=== PATIENT | male | born 1945 | race Caucasian/White ===

== ENCOUNTER 2016-11-05 16:10 | Observation (INO) | payer BC, OTHER ==
[~2016-11-05] VITALS: Ht 185.4 cm; Wt 121.8 kg
[2016-11-05] MEDS ORDERED: ASPIRIN 81 MG CHEW TABLET As Ordered ONE (16:27)
[2016-11-05 16:48] LABS: BASO # 0.2 K/mm3 (0.0-0.2); BASO % 2.6 % (0.0-1.0); EOS # 0.1 K/mm3 (0.0-0.50); EOS % 1.3 % (0.0-3.0); LARGE UNSTAINED CELL # 0.2 K/mm3 (0.0-0.4); LYMPH % 10.8 % (24.0-44.0); MEAN CORPUSCULAR HGB CONC 34.3 g/dl (32.0-36.5); MEAN CORPUSCULAR VOLUME 81.7 fl (80.0-96.0); MONO # 0.6 K/mm3 (0.0-0.8); MONO % 8.4 % (0.0-5.0); NEUTROPHILS # 5.2 K/mm3 (1.8-7.7); NEUTROPHILS % 73.9 % (36.0-66.0); PLATELET COUNT, AUTOMATED 203 k/mm3 (150-450); RED CELL DISTRIBUTION WIDTH 14.4 % (11.5-14.5)
[2016-11-05 17:15] LABS: ANION GAP 10 MEQ/L (8-16); BLOOD UREA NITROGEN 17 MG/DL (7-18); CALCIUM LEVEL 8.9 MG/DL (8.8-10.2); CARBON DIOXIDE LEVEL 26 MEQ/L (21-32); CHLORIDE LEVEL 106 MEQ/L (98-107); CREATININE FOR GFR 0.86 MG/DL (0.70-1.30); GLOMERULAR FILTRATION RATE > 60.0 (>42); GLUCOSE, FASTING 112 MG/DL (83-110); POTASSIUM SERUM 3.6 MEQ/L (3.5-5.1); SODIUM LEVEL 142 MEQ/L (136-145)
[2016-11-05] MEDS ORDERED: TYLE650T35 PO (17:57)
[2016-11-05] MEDS ORDERED: VITA100066 PO (17:57)
[2016-11-05] MEDS ORDERED: GLUCTAB4 PO (17:57)
[2016-11-05] MEDS ORDERED: HYDR25TAB PO (17:57)
[2016-11-05] MEDS ORDERED: ATOR1TAB19 PO (17:57)
[2016-11-05] MEDS ORDERED: DIGO0.25 PO (17:57)
[2016-11-05] MEDS ORDERED: VITA500T88 PO (17:57)
[2016-11-05] MEDS ORDERED: ELIQ5TAB PO (17:57)
[2016-11-05] MEDS ORDERED: LISI30TA4 PO (17:57)
[2016-11-05] MEDS ORDERED: NEXI40CA PO (17:57)
[2016-11-05] MEDS ORDERED: FISH1000 PO (17:57)
[2016-11-05] MEDS ORDERED: VITMTA PO (17:57)
--- NOTE | 2016-11-05 18:13 | REP ---
PA and lateral chest 11/05/2016 Indication: Chest pain Comparison: PA chest with left rib series 12/09/2012, PA and lateral chest 11/25/2011. Findings: The cardiac silhouette is of normal size. There is tortuosity and ectasia / mild aneurysmal dilatation in the descending thoracic aorta, not significantly changed. Fibro atelectatic changes are present in lung bases, right greater than left. Blunting within the right costophrenic angle suggests minimal pleural effusion and/or atelectasis/ scarring changes. Bones and soft tissues are within normal limits. Impression: tortuosity and ectasia / mild aneurysmal dilatation of the ascending thoracic aorta is noted. Cardiac silhouette is of normal size Bibasilar fibro atelectatic changes Blunting in the right costophrenic angle may represent minimal pleural effusion or atelectasis/ scarring Signed by Linda Weems MD 11/05/2016 06:05 P
[2016-11-05] MEDS ORDERED: ACETAMINOPHEN 325 MG TAB As Ordered ONE (18:32)
[2016-11-05] MEDS ORDERED: ISOVUE-370 76% 100ML VIAL (Q9967) As Ordered ONE (18:58)
--- NOTE | 2016-11-05 19:50 | REPUSA ---
CLINICAL HISTORY: Dyspnea, exclude PE. TECHNIQUE: Multiple incremental axial, coronal and oblique images are obtained from the thoracic inle t to the upper abdomen. Intravenous contrast material was administered as per pulmonary embolism prot ocol. COMMENTS: There is excellent opacification of pulmonary arterial system without evidence for pulmonary embolism . Aorta is of normal caliber without evidence for dissection or aneurysm. There is no evidence of pleural or parenchymal mass. There are no pleural effusions. Calcified bilat eral hilar and mediastinal lymph nodes are present compatible with prior granulomatous disease. There is no evidence of hilar or mediastinal lymphadenopathy. The heart is enlarged. There is pulmon concepción venous congestive changes present. Several hepatic cysts are present. Liver is otherwise unremarkable. The bony structures are free of lytic or blastic lesions. Multilevel degenerative changes are seen in volving the visualized thoracolumbar spine. Scattered calcifications are seen involving the aorta and major branches compatible with atherosclero sis. IMPRESSION: No evidence for pulmonary embolism. Calcified bilateral hilar and mediastinal lymph nodes are present compatible with prior granulomatous disease. The heart is enlarged. There is pulmonary venous congestive changes present. Several hepatic cysts are present. Thank you for your kind referral of this patient. We appreciate the opportunity to participate in thi s patient's care.
[2016-11-05] MEDS ORDERED: PERCOCET 5MG/325MG TAB PO PRN (20:30)
[2016-11-05] MEDS ORDERED: DIGOXIN 0.25 MG TAB PO SCH (21:00)
[2016-11-05] MEDS ORDERED: ATORVASTATIN 10 MG TAB PO SCH (21:00)
[2016-11-05] MEDS ORDERED: LISINOPRIL 10 MG TAB PO SCH (21:00)
[2016-11-05] MEDS ORDERED: PANTOPRAZOLE 40MG TAB (PROTONIX) PO SCH (21:00)
[2016-11-05] MEDS ORDERED: PERCOCET 5MG/325MG TAB As Ordered ONE (21:35)
--- NOTE | 2016-11-05 23:04 | EDDOCDS ---
Nurse's Notes [facility] Name: Neel Varner Age: 71 yrs Sex: Male : 1945 Arrival Date: 11/05/2016 Time: 16:10 Bed OBSERVATION Private MD: Guido Diagnosis: Chest pain, unspecified Presentation: 11/05 16:16 Presenting complaint: Patient states: mid chest pain x2 hours. Constant. Some SOB. No ttb n/v. Pt sitting at desk when pain started. Aspirin was not taken prior to arrival. Adult Sepsis Screening: The patient does not have new or worsening altered mentation. Patient's respiratory rate is less than 22. Systolic blood pressure is greater than 100. Patient has a qSOFA score of 0- Negative Sepsis Screen. Suicide/Homicide risk assessment- the patient denies having any suicidal and/or homicidal ideations and does not present with any other emotional, behavioral or mental health complaints. Status: Patient is not a sales and service advisor or dependent. Transition of care: patient was not received from another setting of care. 16:16 Acuity: LISA Level 3 ttb 16:16 Method Of Arrival: Walkin/Carried/Asstd ttb 16:43 Acuity level changed due to complexity of care. ck1 16:43 Acuity: LISA Level 2 ck1 Triage Assessment: 16:16 General: Appears in no apparent distress, well nourished, well groomed, Behavior is ttb appropriate for age, cooperative, pleasant. Pain: Location: mid chest Pain currently is 6 out of 10 on a pain scale. Pain does not radiate. Quality of pain is described as pressure, sharp. Cardiovascular: Chest pain is described as Pain is 6 out of 10 on a pain scale. radiates Does not radiate. episodes are continuous began 2 hours prior to arrival. Respiratory: Airway is patent Respiratory effort is even, unlabored, Reports shortness of breath pain with respiration Denies cough, labored breathing. GI: Denies nausea, vomiting, pain. Derm: Skin is normal. Injury Description: fell yesterday while walking dog. Fell on "face". Historical: - Allergies: no known allergies; - Home Meds: 1. lisinopril 30 mg Oral tab 1 tab once daily (Last dose: 11/04/2016) 2. digoxin 0.25mg Oral soln once daily (Last dose: 11/04/2016) 3. Eliquis 5 mg oral tab 1 tab 2 times per day (Last dose: 11/05/2016 07:30) 4. hydrochlorothiazide 12.5 mg Oral cap 1 cap once daily (Last dose: 11/05/2016 07:00) 5. Nexium 40 mg Oral cpDR 1 cap once daily (Last dose: 11/04/2016) 6. atorvastatin 10 mg oral tab 1 tab once daily (Last dose: 11/04/2016) - PMHx: afib; Hypercholesterolemia; Hypertension; pericardial effusion; - PSHx: left knee arthroplasty; Prostatectomy; - Social history: Smoking status: Patient states was never smoker of tobacco. Patient/guardian denies using alcohol, street drugs, No barriers to communication noted, The patient speaks fluent Sudanese, Speaks appropriately for age. - Family history: Not pertinent. - : The pt / caregiver states he / she is on anticoagulants: Eliquis Home medication list is obtained from the patient. - Exposure Risk Screening:: None identified. Screenin:40 Screening information is obtained from the patient. Fall risk: No risks identified. ck1 Assistance ADL's: requires no assistance with activities of daily living. Abuse/DV Screen: The patient / caregiver reports he/she is: not in a situation that causes fear, pain or injury. Nutritional screening: No deficits noted. Advance Directives: Currently, there is a health care proxy, Kathie Varner (). home support is adequate. Assessment: 16:40 General: Appears in no apparent distress, comfortable, Behavior is appropriate for age, ck1 cooperative. Pain: Location: chest Pain currently is 6 out of 10 on a pain scale. Pain does not radiate. Cardiovascular: Rhythm is sinus rhythm. Respiratory: Respiratory effort is unlabored, Respiratory pattern is regular, symmetrical. GI: No deficits noted. Derm: Skin is intact, is healthy with good turgor, Skin is pink, warm & dry. Musculoskeletal: Circulation, motion, and sensation intact Range of motion intact in all extremities. 17:40 General: Appears in no apparent distress, comfortable, Behavior is appropriate for age, ck1 cooperative. Pain: Location: chest Pain currently is 6 out of 10 on a pain scale. Neurological: Level of Consciousness is awake, alert, obeys commands, Oriented to person, place, time. Cardiovascular: Rhythm is regular. Respiratory: No deficits noted. GI: No deficits noted. Derm: Skin is intact, is healthy with good turgor, Skin is pink, warm & dry. Musculoskeletal: Circulation, motion, and sensation intact Range of motion intact in all extremities. 18:37 General: Appears in no apparent distress, comfortable, Behavior is appropriate for age, ck1 cooperative, pleasant. Pain: Location: chest Pain currently is 6 out of 10 on a pain scale. Neurological: Level of Consciousness is awake, alert, obeys commands, Oriented to person, place, time. Cardiovascular: Rhythm is sinus rhythm. Respiratory: Respiratory effort is unlabored, Respiratory pattern is regular, symmetrical. Respiratory: Respiratory effort is unlabored, Respiratory pattern is regular, symmetrical. GI: No deficits noted. Derm: Skin is intact, is healthy with good turgor, Skin is pink, warm & dry. 19:23 Reassessment: Patient appears in no apparent distress at this time. Patient states jp6 symptoms have improved. General: Appears in no apparent distress, comfortable, well developed, Behavior is appropriate for age, cooperative. Pain: Location: chest Pain currently is 2 out of 10 on a pain scale. Pain does not radiate. Quality of pain is described as burning. Neurological: Level of Consciousness is awake, alert, Oriented to person, place, time. EENT: No deficits noted. Cardiovascular: Capillary refill < 3 seconds Heart tones S1 S2 present Rhythm is sinus rhythm No ectopy. Respiratory: No deficits noted. Airway is patent Respiratory effort is even, unlabored, Respiratory pattern is regular, symmetrical, Breath sounds are clear bilaterally. GI: No deficits noted. Abdomen is flat, Bowel sounds present X 4 quads. : No deficits noted. Derm: Skin is pink, warm & dry. Musculoskeletal: No deficits noted. 20:30 Reassessment: Patient appears in no apparent distress at this time. Patient states jp6 symptoms have improved. General: Appears in no apparent distress, comfortable, Behavior is appropriate for age, cooperative. Pain: Denies pain. Neurological: Level of Consciousness is awake. Cardiovascular: Capillary refill < 3 seconds Rhythm is sinus rhythm No ectopy. Respiratory: Airway is patent Respiratory effort is even, unlabored, Respiratory pattern is regular, symmetrical. Derm: Skin is pink, warm & dry. 21:43 Reassessment: Patient appears in no apparent distress at this time. c/o headache and jp6 left sided chest pain again-03/10 medicated w/ percocet 1 tab at 2130.. General: Appears in no apparent distress, uncomfortable, Behavior is appropriate for age, cooperative. Pain: Location: face and chest Pain currently is 5 out of 10 on a pain scale. Neurological: Level of Consciousness is awake, alert. Cardiovascular: Capillary refill < 3 seconds Rhythm is sinus rhythm No ectopy. Respiratory: Airway is patent Respiratory effort is even, unlabored, Respiratory pattern is regular, symmetrical. Derm: Skin is pink, warm & dry. 22:29 Reassessment: Patient appears in no apparent distress at this time. Patient states jp6 symptoms have improved. General: Appears in no apparent distress, comfortable, Behavior is appropriate for age, cooperative. Pain: Denies pain. Neurological: Level of Consciousness is awake, alert, Oriented to person, place, time. Cardiovascular: Capillary refill < 3 seconds Rhythm is sinus rhythm No ectopy. Respiratory: No deficits noted. Airway is patent Respiratory effort is even, unlabored, Respiratory pattern is regular, symmetrical. : : Derm: Skin is pink, warm & dry. Vital Signs: 16:14 BP 162 / 72; Pulse 75; Resp 18; Temp 97.9(O); Pulse Ox 98% on R/A; Weight 120.2 kg; dem1 Height 6 ft. 1 in. (185.42 cm); Pain /; 16:30 BP 145 / 76 (auto/); ck1 16:30 Pulse 72 MON; Pulse Ox 97% ; ck1 16:31 Pulse 74 MON; Pulse Ox 97% ; ck1 17:00 BP 151 / 78 (auto/); ck1 17:00 Pulse 70 MON; Pulse Ox 97% ; ck1 17:30 BP 138 / 65 (auto/); ck1 17:30 Pulse 64 MON; Pulse Ox 96% ; ck1 17:59 Pulse 66 MON; Pulse Ox 96% ; ck1 18:00 BP 143 / 70 (auto/); ck1 18:27 BP 149 / 70 (auto/); ck1 18:28 Pulse 66 MON; Pulse Ox 98% ; ck1 19:19 BP 148 / 70 (auto/); jp6 19:20 Pulse 64 MON; Pulse Ox 96% ; jp6 20:19 BP 142 / 64 (auto/); jp6 20:20 Pulse 70 MON; Pulse Ox 96% ; jp6 20:49 BP 146 / 79 (auto/); jp6 20:49 Pulse 72 MON; Pulse Ox 94% ; jp6 21:19 BP 140 / 65 (auto/); jp6 21:20 Pulse 72 MON; Pulse Ox 94% ; jp6 21:53 Temp 99.4(O); tk 22:19 BP 134 / 70 (auto/); jp6 22:20 Pulse 66 MON; Pulse Ox 96% ; jp6 16:14 Body Mass Index 34.96 (120.20 kg, 185.42 cm) [facility] Vitals: 16:14 Log In Time: November 05, 2016 at 16:08. RN notified that patient meets Red Flag [facility]1 criteria. ED Course: 16:14 Patient visited by Celia Olmos. dem1 16:14 Guido is Private Physician. dem1 16:14 Patient moved to Waiting dem1 16:17 Triage Initiated ttb 16:19 Patient visited by Teresa Armenta RN. ttb 16:19 May Goldman,LUCA is Primary Nurse. ttb 16:19 Mel Smart MD is Attending Physician. fg 16:19 Patient moved to 5 ttb 16:31 Patient visited by Yeni Corral PCA. jlf 16:31 gambling monitor on. Pulse ox on. NIBP on. jlf 16:31 EKG done. (by ED staff). Reviewed by Mel Smart MD. jlf 16:40 B-Type Natiuretic Peptide Sent. ck1 16:40 Basic Metabolic Profile Sent. ck1 16:40 CBC with Diff Sent. ck1 16:40 Cardiac Injury Profile Sent. ck1 16:40 Troponin Sent. ck1 16:40 Inserted saline lock: 18 gauge in right forearm and blood collected. The patient ck1 tolerated the procedure well. 16:41 The patient / caregiver is instructed regarding the plan of care and ED course. ck1 16:50 Patient visited by Teresa Armenta RN. ttb 17:20 Patient visited by Mel Smart MD. fg 17:43 Patient visited by May Goldman,LUCA. ck1 17:51 Patient visited by May Goldman,LUCA. ck1 17:51 No procedures done that require assistance. ck1 18:16 [facility] Payment Agreement was scanned into [employer] and attached to record. gjb 18:36 Patient visited by May Goldman,LUCA. ck1 18:52 Patient visited by May Goldman,LUCA. ck1 18:57 Attending Physician role handed off by Mel Smart MD cs11 18:57 Aníbal Kemp DO is Attending Physician. cs11 19:05 Chest, 2 View (pa\\E\\lat) Returned. EDMS 19:[address] angio and ret'. jp6 19:57 Norma Matta display director. ys2 19:59 Patient visited by Jil El,LUCA. jp6 20:01 CT Chest Angio R/O PE Returned. EDMS 20:06 Patient moved to OBSERVATION cs11 21:01 Norma Matta is Hospitalizing Provider. cs11 21:53 Patient visited by Pierre Badillo. tk 22:55 Primary Nurse role handed off by May Goldman RN ck1 23:03 Jil El RN is Primary Nurse. jp6 Administered Medications: 16:40 Drug: Aspirin 324 mg [aspirin 81 mg chewable tablet (4 tabs)] Route: PO; ck1 18:36 Drug: Acetaminophen 650 mg [acetaminophen 325 mg tablet (2 tabs)] Route: PO; ck1 21:30 Drug: oxyCODONE-acetaminophen 1 tabs [oxycodone-acetaminophen 5 mg-325 mg tablet (1 jp6 tabs)] Route: PO; Order Results: Lab Order: B-Type Natiuretic Peptide; SPEC'M 11/05/16 16:37 Test: BRAIN NATRIURETIC PEPTIDE; Value: 20.1; Range: <100; Units: PG/ML; Status: F Lab Order: Basic Metabolic Profile; SPEC'M 11/05/16 16:37 Test: GLUCOSE, FASTING; Value: 112; Range: 83-110; Abnormal: Above high normal; Units: MG/DL; Status: F Test: BLOOD UREA NITROGEN; Value: 17; Range: 7-18; Units: MG/DL; Status: F Test: CREATININE FOR GFR; Value: 0.86; Range: 0.70-1.30; Units: MG/DL; Status: F Test: GLOMERULAR FILTRATION RATE; Value: > 60.0; Range: >42; Status: F Test: SODIUM LEVEL; Value: 142; Range: 136-145; Units: MEQ/L; Status: F Test: POTASSIUM SERUM; Value: 3.6; Range: 3.5-5.1; Units: MEQ/L; Status: F Test: CHLORIDE LEVEL; Value: 106; Range: 98-107; Units: MEQ/L; Status: F Test: CARBON DIOXIDE LEVEL; Value: 26; Range: 21-32; Units: MEQ/L; Status: F Test: ANION GAP; Value: 10; Range: 8-16; Units: MEQ/L; Status: F Test: CALCIUM LEVEL; Value: 8.9; Range: 8.8-10.2; Units: MG/DL; Status: F Test Note: ; Units are mL/min/1.73 m2 Chronic Kidney Disease Staging per NKF: Stage I & II GFR >=60 Normal to Mildly Decreased Stage III GFR 30-59 Moderately Decreased Stage IV GFR 15-29 Severely Decreased Stage V GFR <15 Very Little GFR Left ESRD GFR <15 on PRODUCTION PLANNING MANAGER Lab Order: CBC with Diff; SPEC'M 11/05/16 16:37 Test: WHITE BLOOD COUNT; Value: 7.0; Range: 4.0-10.0; Units: K/mm3; Status: F Test: RED BLOOD COUNT; Value: 4.79; Range: 4.30-6.10; Units: M/mm3; Status: F Test: HEMOGLOBIN; Value: 13.4; Range: 14.0-18.0; Abnormal: Below low normal; Units: g/dl; Status: F Test: HEMATOCRIT; Value: 39.1; Range: 42.0-52.0; Abnormal: Below low normal; Units: %; Status: F Test: MEAN CORPUSCULAR VOLUME; Value: 81.7; Range: 80.0-96.0; Units: fl; Status: F Test: MEAN CORPUSCULAR HEMOGLOBIN; Value: 28.0; Range: 27.0-33.0; Units: pg; Status: F Test: MEAN CORPUSCULAR HGB CONC; Value: 34.3; Range: 32.0-36.5; Units: g/dl; Status: F Test: RED CELL DISTRIBUTION WIDTH; Value: 14.4; Range: 11.5-14.5; Units: %; Status: F Test: PLATELET COUNT, AUTOMATED; Value: 203; Range: 150-450; Units: k/mm3; Status: F Test: NEUTROPHILS %; Value: 73.9; Range: 36.0-66.0; Abnormal: Above high normal; Units: %; Status: F Test: LYMPH %; Value: 10.8; Range: 24.0-44.0; Abnormal: Below low normal; Units: %; Status: F Test: MONO %; Value: 8.4; Range: 0.0-5.0; Abnormal: Above high normal; Units: %; Status: F Test: EOS %; Value: 1.3; Range: 0.0-3.0; Units: %; Status: F Test: BASO %; Value: 2.6; Range: 0.0-1.0; Abnormal: Above high normal; Units: %; Status: F Test: LARGE UNSTAINED CELL %; Value: 3.0; Range: 0.0-4.0; Units: %; Status: F Test: NEUTROPHILS #; Value: 5.2; Range: 1.8-7.7; Units: K/mm3; Status: F Test: LYMPH #; Value: 1.0; Range: 1.5-4.5; Abnormal: Below low normal; Units: K/mm3; Status: F Test: MONO #; Value: 0.6; Range: 0.0-0.8; Units: K/mm3; Status: F Test: EOS #; Value: 0.1; Range: 0.0-0.50; Units: K/mm3; Status: F Test: BASO #; Value: 0.2; Range: 0.0-0.2; Units: K/mm3; Status: F Test: LARGE UNSTAINED CELL #; Value: 0.2; Range: 0.0-0.4; Units: K/mm3; Status: F Lab Order: Cardiac Injury Profile; SPEC'M 11/05/16 16:37 Test: CPK CREATINE PHOSPHOKINASE; Value: 123; Range: 39-308; Units: U/L; Status: F Test: CK-MB VALUE MASS; Value: 5.5; Range: 0.0-3.6; Abnormal: Above high normal; Units: NG/ML; Status: F Test: MB/CK RELATIVE INDEX; Value: 4.47; Range: < OR =4; Abnormal: Above high normal; Status: F Test Note: ; DIAGNOSIS CRITERIA MMB ng/ml Relative Index (RI) NON-AMI < or = 5 N/A JACOME ZONE > 5 < or = 4 AMI > 5 > 4 Lab Order: Troponin; SPEC'M 11/05/16 16:37 Test: TROPONIN I; Value: < 0.02; Range: < 0.10; Units: NG/ML; Status: F Test Note: ; Troponin I Reference Interval for [place] LOCI: 99th Percentile= 0.00-0.045 ng/ml Risk Stratification: <= 0.10 ng/ml Decreased Risk for Adverse Clinical Events. 0.10-1.50 ng/ml Increased Risk for Adverse Clinical Events. Evaluation of additional criterion and/or repeat testing in 2-6 hours is suggested to rule out myocardial damage. >= 1.50 ng/ml Indicative of Myocardial Injury. Radiology Order: Chest, 2 View (pa\\E\\lat) Test: Chest, 2 View (pa\\E\\lat) REASON FOR EXAMINATION: Chest Pain; PA and lateral chest 11/05/2016; ; Indication: Chest pain; ; Comparison: PA chest with left rib series 12/09/2012, PA and lateral chest; 11/25/2011.; ; Findings: The cardiac silhouette is of normal size. 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 Bones and soft tissues are within normal; limits.; ; Impression: tortuosity and ectasia / mild aneurysmal dilatation of the ascending; thoracic aorta is noted. Cardiac silhouette is of normal size; ; Bibasilar fibro atelectatic changes; ; Blunting in the right costophrenic angle may represent minimal pleural effusion; or atelectasis/ scarring; ; ; Signed by; Linda Weems MD 11/05/2016 06:05 P; Radiology Order: CT Chest Angio R/O PE Test: CT Chest Angio R/O PE REASON FOR EXAMINATION: Chest Pain; ; CLINICAL HISTORY: Dyspnea, exclude PE.; TECHNIQUE: Multiple incremental axial, coronal and oblique images are obtained from the thoracic inle; t to the upper abdomen. Intravenous contrast material was administered as per pulmonary embolism prot; ocol.; COMMENTS:; There is excellent opacification of pulmonary arterial system without evidence for pulmonary embolism; . Aorta is of normal caliber without evidence for dissection or aneurysm.; There is no evidence of pleural or parenchymal mass. There are no pleural effusions. Calcified bilat; eral hilar and mediastinal lymph nodes are present compatible with prior granulomatous disease.; There is no evidence of hilar or mediastinal lymphadenopathy. The heart is enlarged. There is pulmon; concepción venous congestive changes present.; Several hepatic cysts are present. Liver is otherwise unremarkable.; The bony structures are free of lytic or blastic lesions. Multilevel degenerative changes are seen in; volving the visualized thoracolumbar spine.; Scattered calcifications are seen involving the aorta and major branches compatible with atherosclero; sis.; IMPRESSION:; No evidence for pulmonary embolism.; Calcified bilateral hilar and mediastinal lymph nodes are present compatible with prior granulomatous; disease.; The heart is enlarged. There is pulmonary venous congestive changes present.; Several hepatic cysts are present.; ; ; Thank you for your kind referral of this patient. We appreciate the opportunity to participate in [facility]; s patient's care.; ; ; ; Outcome: 21:01 Decision to Hospitalize by Provider. [facility] 22:20 Discharge Assessment: Patient awake, alert and oriented x 3. No cognitive and/or jp6 functional deficits noted. Patient verbalized understanding of disposition instructions. patient administered narcotics - yes. Patient was admitted to the hospital or transferred to another facility. The following High Risk Discharge criteria are identified: None. Admitted to PCU accompanied by nurse, accompanied by tech, via stretcher, on monitor, with chart. Condition: stable. CT Study completed. Admission hand-off: Report Faxed Fax receipt verified by PCU. Property :Personal belongings accompany Pt. 23:03 Patient left the ED. jp6 Signatures: Dispatcher [facility] May Gill RN RN ck1 Celia Olmos1 Aníbal Kemp, DO cs11 Teresa Armenta RN RN ttb Yeni Corral, APPOINTMENT MANAGER APPOINTMENT MANAGER nitinf Mel Smart MD MD fg Kenealy, Timothy tk Beck, Gabriela gjb Norma Matta ys2 Jil El,RN RN jp6 Corrections: (The following items were deleted from the chart) 16:19 16:16 Presenting complaint: Patient states: mid chest pain x2 hours. Constant. Some ttb SOB. No n/v. ttb MTDD
--- NOTE | 2016-11-05 23:04 | EDDOCDS ---
Physician Documentation [facility] Name: Neel Varner Age: 71 yrs Sex: Male : 1945 Arrival Date: 11/05/2016 Time: 16:10 Bed OBSERVATION Private MD: Guido Disposition: 11/05/16 21:01 Hospitalization ordered by Norma Matta for Inpatient Admission. Preliminary diagnosis is Chest pain, unspecified. - Bed requested for PCU. - Status is Inpatient Admission. jp6 - Condition is Stable. - Problem is new. - Symptoms have improved. Historical: - Allergies: no known allergies; - Home Meds: 1. lisinopril 30 mg Oral tab 1 tab once daily (Last dose: 11/04/2016) 2. digoxin 0.25mg Oral soln once daily (Last dose: 11/04/2016) 3. Eliquis 5 mg oral tab 1 tab 2 times per day (Last dose: 11/05/2016 07:30) 4. hydrochlorothiazide 12.5 mg Oral cap 1 cap once daily (Last dose: 11/05/2016 07:00) 5. Nexium 40 mg Oral cpDR 1 cap once daily (Last dose: 11/04/2016) 6. atorvastatin 10 mg oral tab 1 tab once daily (Last dose: 11/04/2016) - PMHx: afib; Hypercholesterolemia; Hypertension; pericardial effusion; - PSHx: left knee arthroplasty; Prostatectomy; - Social history: Smoking status: Patient states was never smoker of tobacco. Patient/guardian denies using alcohol, street drugs, No barriers to communication noted, The patient speaks fluent Montserratian, Speaks appropriately for age. - Family history: Not pertinent. - : The pt / caregiver states he / she is on anticoagulants: Eliquis Home medication list is obtained from the patient. - Exposure Risk Screening:: None identified. Vital Signs: 11/05 16:14 BP 162 / 72; Pulse 75; Resp 18; Temp 97.9(O); Pulse Ox 98% on R/A; Weight 120.2 kg / dem1 265 lbs; Height 6 ft. 1 in. (185.42 cm); Pain 7/10; 16:30 BP 145 / 76 (auto/); ck1 16:30 Pulse 72 MON; Pulse Ox 97% ; ck1 16:31 Pulse 74 MON; Pulse Ox 97% ; ck1 17:00 BP 151 / 78 (auto/); ck1 17:00 Pulse 70 MON; Pulse Ox 97% ; ck1 17:30 BP 138 / 65 (auto/); ck1 17:30 Pulse 64 MON; Pulse Ox 96% ; ck1 17:59 Pulse 66 MON; Pulse Ox 96% ; ck1 18:00 BP 143 / 70 (auto/); ck1 18:27 BP 149 / 70 (auto/); ck1 18:28 Pulse 66 MON; Pulse Ox 98% ; ck1 19:19 BP 148 / 70 (auto/); jp6 19:20 Pulse 64 MON; Pulse Ox 96% ; jp6 20:19 BP 142 / 64 (auto/); jp6 20:20 Pulse 70 MON; Pulse Ox 96% ; jp6 20:49 BP 146 / 79 (auto/); jp6 20:49 Pulse 72 MON; Pulse Ox 94% ; jp6 21:19 BP 140 / 65 (auto/); jp6 21:20 Pulse 72 MON; Pulse Ox 94% ; jp6 21:53 Temp 99.4(O); tk 22:19 BP 134 / 70 (auto/); jp6 22:20 Pulse 66 MON; Pulse Ox 96% ; jp6 16:14 Body Mass Index 34.96 (120.20 kg, 185.42 cm) dem1 MDM: 16:20 Aspirin Chewable Tablet 324 mg PO once ordered. fg 16:20 Instrument Repairer Steam Plant/Pulse Ox/q 30 min VS ordered. fg 16:20 IV Saline Lock ordered. fg 16:20 Rhythm Strip to chart ordered. fg 16:20 Undress patient appropriately for examination ordered. fg 16:21 B-Type Natiuretic Peptide Ordered. EDMS 16:21 Basic Metabolic Profile Ordered. EDMS 16:21 CBC with Diff Ordered. EDMS 16:21 Cardiac Injury Profile Ordered. EDMS 16:21 Troponin Ordered. EDMS 16:21 Chest, 2 View (pa\E\lat) Ordered. EDMS 16:21 ECG WITH READING ER PHYS+CARDIAG ordered. EDMS 17:42 BED REQUEST+ADM ordered. EDMS 18:13 Financial registration complete. gjb 18:16 [facility] Payment Agreement was scanned into [employer] and attached to record. gjb 18:31 Acetaminophen Tablet 650 mg PO once ordered. fg 18:36 Acetaminophen Tablet 650 mg PO once ordered. ck1 18:38 REGULAR+DIET ordered. EDMS 18:38 REGULAR+DIET ordered. EDMS 18:44 CT Chest Angio R/O PE Ordered. EDMS 19:35 Basic Metabolic Profile Reviewed. cs11 19:35 CBC with Diff Reviewed. cs11 19:35 Cardiac Injury Profile Reviewed. cs11 19:35 B-Type Natiuretic Peptide Reviewed. cs11 19:35 Troponin Reviewed. cs11 19:35 Chest, 2 View (pa\E\lat) Reviewed. cs11 19:37 Misc Graphic Arts Technician Order ordered. cs11 19:47 Misc Graphic Arts Technician Order complete. tmm1 19:48 ECG WITH READING ER PHYS ordered. EDMS 19:48 CARDIAC MARKER PANEL Ordered. EDMS 20:20 Admission / Observation Status ordered. EDMS 20:20 2 GRAM SODIUM DIET ordered. EDMS 20:21 COMPLETE BLOOD COUNT Ordered. EDMS 20:21 BASIC METABOLIC PROFILE Ordered. EDMS 22:55 oxyCODONE-acetaminophen 5 mg-325 mg 1 tabs PO once ordered. jp6 Administered Medications: 16:40 Drug: Aspirin 324 mg [aspirin 81 mg chewable tablet (4 tabs)] Route: PO; ck1 18:36 Drug: Acetaminophen 650 mg [acetaminophen 325 mg tablet (2 tabs)] Route: PO; ck1 21:30 Drug: oxyCODONE-acetaminophen 1 tabs [oxycodone-acetaminophen 5 mg-325 mg tablet (1 jp6 tabs)] Route: PO; Signatures: Dispatcher [employer] EDPR May Goldman RN RN ck1 Aníbal Kemp, DO cs11 Teresa Armenta RN RN ttb Tiffanie Reed, DIRECTOR COMMUNITY CENTER DIRECTOR COMMUNITY CENTER tmm1 Mel Smart MD MD fg Beck, Gabriela gjb Palmer, JessicaRN RN jp6 The chart was reviewed and I authenticate all verbal orders and agree with the evaluation and treatment provided.Corrections: (The following items were deleted from the chart) 16:39 16:21 ECG WITH READING ER PHYS+CARDIAG ordered. EDMS EDMS Attachments: 18:16 [facility] Payment Agreement gjjt MTDD
[2016-11-05 23:15] VITALS: BP 143/81
[2016-11-05 23:33] VITALS: BP 143/81
[2016-11-05] MEDS: APIXABAN 5 MG TAB (ELIQUIS) PO SCH (23:33)
--- NOTE | 2016-11-05 23:34 | HPE ---
DATE OF ADMISSION: 11/05/2016 PRIMARY CARE PROVIDER: Dr. Lora RASPER MACHINE OPERATOR: Dr. Jensen HISTORY OF THE PRESENT ILLNESS: This patient is a 71-year-old male with a past medical history significant for paroxysmal atrial fibrillation, hypercholesterolemia, hypertension, prostate cancer, status post prostatectomy, gastroesophageal reflux disease (GERD), history of pericardial effusion, [facility] 11/05[facility]2016 for acute onset of chest pain, approximately around 2:00 to 3:00 p.m. When the pain occurred, he was sitting at his desk. The pain is pressure-like with a sharp quality. The pain is located mid left chest. The pain is localized without any radiation, and the pain has been persistent for the past 5 hours. He is not sure what makes it worse and Tylenol makes it better. He has never had a similar pain in the past. Denies any associated symptoms. Approximately 1 month ago, the patient was under a Holter monitor study, and the patient was found to have atrial fibrillation and the patient was started on digoxin and Eliquis by his information systems coordinator, Dr. Jensen. Since the initiation of the medication, his heart rhythm converted back to sinus. He also had a fall this morning, and he landed on his knee and the lower limbs and he said that was a mechanical fall. He did not lose any consciousness. Denies any muscular weakness. The patient denies any bleeding. ALLERGIES: No known drug allergies. HOME MEDICATIONS: - lisinopril 30 mg by mouth daily - digoxin 0.25 mg by mouth daily - Eliquis 5 mg by mouth twice a day - hydrochlorothiazide 12.5 mg by mouth daily - Nexium 40 mg by mouth daily - atorvastatin 10 mg by mouth daily PAST MEDICAL HISTORY: Paroxysmal atrial fibrillation. Hypercholesterolemia. Hypertension. Gastroesophageal reflux disease. History of pericardial effusion (20 years ago). History of prostate cancer, status post prostatectomy. SOCIAL HISTORY: The patient denies smoking, denies alcohol use, denies any recreational drug use. The patient is a FULL CODE. REVIEW OF SYSTEMS: GENERAL: No fever, no chills. HEENT: No vision changes. No auditory changes. CARDIOVASCULAR: History of paroxysmal atrial fibrillation, on digoxin and Eliquis. The patient complained about chest pain since 2:00 to 3:00 p.m. today. Sharp chest pain is reproducible with light pressure to the mid left chest. GASTROINTESTINAL: No nausea, no vomiting, no abdominal pain, no diarrhea. MUSCULOSKELETAL: Chest muscle pain is reproducible with direct pressure. Mild bilateral knee discomfort after the mechanical fall. Intermittent lower extremity swelling. NEUROLOGICAL: No new numbness or tingling. OBJECTIVE: VITAL SIGNS: Blood pressure is 148/70, pulse is 64, respirations 18, temperature is 97.9, pulse oximetry is 96% in room air. Body weight is 120 kg. Body height is 185 cm. PHYSICAL EXAMINATION: GENERAL: No sign of acute distress. Alert and oriented times three. HEENT: Wearing corrective lenses. Normocephalic, atraumatic. Extraocular motor grossly intact. CARDIOVASCULAR: Positive S1, S2. Very distant heart sounds. LUNGS: Clear to auscultation bilaterally. No wheezes or rhonchi. ABDOMEN: Obese, soft, nontender, nondistended. Bowel sounds present. No rebound, no guarding. EXTREMITIES: Trace pitting edema bilaterally. No cyanosis, no calf tenderness. LABORATORY DATA: WBC is 7, hemoglobin 13.4, hematocrit 39.1, platelet count is 203. Sodium is 142, potassium 3.6, chloride is 106, carbon dioxide 26, BUN 17, creatinine 0.86, GFR greater than 60, fasting glucose 112, calcium is 8.9, total CK is 123, CK-MB is 5.5, troponin I is less than 0.02, BNP is 20.1. IMAGING STUDIES: Two-view chest x-ray showed tortuosity and ectasia/mild aneurysmal dilatation of the descending thoracic aorta and bibasilar fibro atelectatic changes. Blunting in the right costophrenic angle may represent minimal pleural effusion or atelectasis/scarring. CT chest angiogram showed no evidence of pulmonary embolism (PE). Calcified bilateral hilar and mediastinal lymph nodes are present compatible with prior granulomatous disease. Pulmonary venous congestive changes present. Several hepatic cysts are present. ASSESSMENT AND PLAN: 1. Chest pain. The patient will be admitted to the progressive care unit (PCU) under observation status. The patient has a normal EKG in the emergency department. The first set of troponin is less than 0.02. Will observe the patient overnight to rule out acute coronary artery syndrome. Part of the differential includes costochondritis because the patient's pain is able to reproduce with direct pressure. The patient will be on Tylenol every 4 hours as needed. CTA is negative. 2. History of paroxysmal atrial fibrillation. The patient is anticoagulated with Eliquis. The patient is on digoxin. Currently, his rate is in the satisfactory range. 3. History of prostate cancer, status post prostatectomy. The patient usually measures the prostate-specific antigen (PSA) yearly. The last that was done was 8 months ago, which was normal. 4. Gastroesophageal reflux disease. The patient will be on Protonix. 5. Hypertension. The patient is taking lisinopril and hydrochlorothiazide. 6. History of pericardial effusion. It occurred 20 years ago. 7. Hypercholesterolemia. The patient is on atorvastatin. 8. Deep vein thrombosis (DVT) prophylaxis. The patient is currently on Eliquis. MTDD
[2016-11-06 04:00] VITALS: BP 146/71
[2016-11-06] MEDS: ACETAMINOPHEN TAB 650MG DOSE (2X325MG) PO PRN ×2 (04:09→10:46)
[2016-11-06 04:30] VITALS: BP 146/71; PULSE 68
[2016-11-06 05:31] LABS: MEAN CORPUSCULAR HEMOGLOBIN 28.1 pg (27.0-33.0); MEAN CORPUSCULAR HGB CONC 34.2 g/dl (32.0-36.5); MEAN CORPUSCULAR VOLUME 82.1 fl (80.0-96.0); RED CELL DISTRIBUTION WIDTH 14.6 % (11.5-14.5); WHITE BLOOD COUNT 5.1 K/mm3 (4.0-10.0)
[2016-11-06 05:47] LABS: ANION GAP 9 MEQ/L (8-16); BLOOD UREA NITROGEN 15 MG/DL (7-18); CALCIUM LEVEL 8.5 MG/DL (8.8-10.2); CARBON DIOXIDE LEVEL 26 MEQ/L (21-32); CHLORIDE LEVEL 107 MEQ/L (98-107); CREATININE FOR GFR 0.82 MG/DL (0.70-1.30); GLOMERULAR FILTRATION RATE > 60.0 (>42); GLUCOSE, FASTING 111 MG/DL (83-110); POTASSIUM SERUM 3.6 MEQ/L (3.5-5.1); SODIUM LEVEL 142 MEQ/L (136-145)
[2016-11-06] MEDS ORDERED: HEPARIN SOD (PORCINE) 5000 UNITS/ML VIAL SC SCH (06:00)
[2016-11-06 08:00] VITALS: BP 133/63
[2016-11-06] MEDS ORDERED: OMEGA-3 1050MG CAPSULE PO SCH (09:00)
[2016-11-06] MEDS ORDERED: MULTIVITAMINS/MINERALS THERAP 1 TAB PO SCH (09:00)
[2016-11-06] MEDS ORDERED: VITAMIN D 1,000 INTERNATIONAL UNITS TABLET PO SCH (09:00)
[2016-11-06] MEDS ORDERED: hydroCHLOROthiazide 12.5 MG CAPSULE PO SCH (09:00)
[2016-11-06] MEDS: APIXABAN 5 MG TAB (ELIQUIS) PO SCH (09:52)
--- NOTE | 2016-11-06 11:11 | REP ---
CT Head without contrast HISTORY: Fall COMPARISON: None There is no intraparenchymal hemorrhage, acute infarct, mass or midline shift. The ventricular system is normal in appearance. There is no extra cerebral collection. There is no fracture. Mucosal thickening is present in the ethmoid and left maxillary sinuses. IMPRESSION: There is no intracranial lesion. Signed by Ludwig Laird MD 11/06/2016 11:03 A
[2016-11-06] MEDS ORDERED: NORC5TAB PO (11:29)
[2016-11-06 12:00] VITALS: BP 129/69
--- NOTE | 2016-11-07 05:47 | DSES ---
DATE OF ADMISSION: 11/05/2016 DATE OF DISCHARGE: 11/06/2016 No specialists involved in care. No complications during stay. No procedures performed during stay. DISCHARGE DIAGNOSES: 1. Musculoskeletal chest pain. 2. Paroxysmal atrial fibrillation. 3. History of prostate cancer status post prostatectomy. 4. Gastroesophageal reflux disease (GERD). 5. Hypertension. 6. Pericardial effusion remotely. 7. Hypercholesterolemia. The following is a summary of his hospitalization: This is a 71-year-old man who suffered mechanical fall. Shortly thereafter developed pain including headache and chest pain. Chest pain was pleuritic in nature. He does follow with a farm service adviser, Dr. Jensen and is on Eliquis and digoxin. This started around 1 month ago. Was brought to the hospital, was monitored on telemetry. It would appear as though this was pleuritic or musculoskeletal pain related to his fall. He had a CT scan of his head, which was negative. CT angiogram of the chest, which showed no evidence of pulmonary embolism, showed no evidence of fracture, although several hepatic cysts were incidentally noted and they require outpatient followup as deemed clinically indicated. On the day of discharge, he is feeling well. Temperature 96.8, pulse 59, respiratory rate 18, blood pressure 129/69, 97% on room air. He has had no significant arrhythmia on monitor. Breathing is symmetrical and rested. Heart is in a regular rate and rhythm. Normal S1, S2. Abdomen soft, doughy, nontender. Creatinine 0.82. Troponins are negative times three. Digoxin level was 1. Vitamin D level was 37.9. DISCHARGE INSTRUCTIONS: Include the following: Followup with Dr. Lora within 7 days. Diet and activity as tolerated. Continue: - Tylenol as needed twice daily - Eliquis 5 mg by mouth twice daily - vitamin C supplement - atorvastatin 10 mg by mouth daily at bedtime - vitamin D supplement - digoxin 0.25 mg by mouth daily at bedtime - Nexium 40 mg by mouth daily at bedtime - fish oil 2000 mg by mouth daily - glucosamine two tablets by mouth daily - hydrochlorothiazide 12.5 mg by mouth daily - lisinopril 30 mg by mouth daily at bedtime - multivitamin tablet daily He was given a prescription for 20 tablets of Rex 5/325 as needed for chest pain.
--- NOTE | 2016-11-07 08:16 | ECGEPIP ---
Stationary ECG Study [facility] - ED Test Date: 2016-11-05 Pat Name: MARTIN HILLS Department: Room: - Gender: M Press Operator Apprentice: merlyn : 1945 Requested By: NUBIA Wolff Order Number: [id number] Reading MD: Zee Lorenzo Measurements Intervals [place] Rate: 73 P: 31 ND: 218 QRS: -28 QRSD: 114 T: 16 QT: 378 QTc: 418 Interpretive Statements SINUS RHYTHM WITH FIRST DEGREE AV BLOCK BORDERLINE LEFT AXIS DEVIATION LOW QRS VOLTAGE IN PRECORDIAL LEADS LEFT VENTRICULAR HYPERTROPHY AND ST-T CHANGE NO PRIOR FOR COMPARISON Electronically Signed On 11-07-2016 8:16:07 EST by Zee Lorenzo
--- NOTE | 2016-11-07 08:27 | ECGEPIP ---
Stationary ECG Study [facility] - ED Test Date: 2016-11-05 Pat Name: MARTIN HILLS Department: Room: [place] [address] Gender: M Commercial Fisher: shabbir : 1945 Requested By: KEI GARIBAY Order Number: [id number] Reading MD: Zee Lorenzo Measurements Intervals [place] Rate: 63 P: 9 NM: 218 QRS: -27 QRSD: 125 T: 7 QT: 397 QTc: 409 Interpretive Statements SINUS RHYTHM WITH FIRST DEGREE AV BLOCK BORDERLINE LEFT AXIS DEVIATION LEFT VENTRICULAR HYPERTROPHY AND ST-T CHANGE PRWP DECREASED RATE 11/05/16 16:27 Electronically Signed On 11-07-2016 8:26:44 EST by Zee Lorenzo
--- NOTE | 2016-11-07 14:50 | ECGEPIP ---
Stationary ECG Study [facility] Test Date: 2016-11-06 Pat Name: MARTIN HILLS Department: Room: [place] [address] Gender: M Heel Seat Pounder: KURT : 1945 Requested By: GAGE ORTEGA Order Number: [id number] Reading MD: Alicia Amador Measurements Intervals [place] Rate: 65 P: 42 VA: 210 QRS: -24 QRSD: 126 T: 6 QT: 406 QTc: 425 Interpretive Statements SINUS RHYTHM WITH FIRST DEGREE AV BLOCK POOR R WAVE PROGRESSION SIMILAR 11/05/16 Electronically Signed On 11-07-2016 14:49:58 EST by Alicia Amador
--- NOTE | 2016-11-08 00:03 | EDDOCDS ---
Physician Documentation [facility] Name: Neel Varner Age: 71 yrs Sex: Male : 1945 Arrival Date: 11/05/2016 Time: 16:10 Bed OBSERVATION Private MD: Guido Disposition: 11/05/16 21:01 Hospitalization ordered by Norma Matta for Inpatient Admission. Preliminary diagnosis is Chest pain, unspecified. - Bed requested for PCU. - Status is Inpatient Admission. jp6 - Condition is Stable. - Problem is new. - Symptoms have improved. Historical: - Allergies: no known allergies; - Home Meds: 1. lisinopril 30 mg Oral tab 1 tab once daily (Last dose: 11/04/2016) 2. digoxin 0.25mg Oral soln once daily (Last dose: 11/04/2016) 3. Eliquis 5 mg oral tab 1 tab 2 times per day (Last dose: 11/05/2016 07:30) 4. hydrochlorothiazide 12.5 mg Oral cap 1 cap once daily (Last dose: 11/05/2016 07:00) 5. Nexium 40 mg Oral cpDR 1 cap once daily (Last dose: 11/04/2016) 6. atorvastatin 10 mg oral tab 1 tab once daily (Last dose: 11/04/2016) - PMHx: afib; Hypercholesterolemia; Hypertension; pericardial effusion; - PSHx: left knee arthroplasty; Prostatectomy; - Social history: Smoking status: Patient states was never smoker of tobacco. Patient/guardian denies using alcohol, street drugs, No barriers to communication noted, The patient speaks fluent [place], Speaks appropriately for age. - Family history: Not pertinent. - : The pt / caregiver states he / she is on anticoagulants: Eliquis Home medication list is obtained from the patient. - Exposure Risk Screening:: None identified. Vital Signs: 11/05 16:14 BP 162 / 72; Pulse 75; Resp 18; Temp 97.9(O); Pulse Ox 98% on R/A; Weight 120.2 kg / dem1 265 lbs; Height 6 ft. 1 in. (185.42 cm); Pain 7/10; 16:30 BP 145 / 76 (auto/); ck1 16:30 Pulse 72 MON; Pulse Ox 97% ; ck1 16:31 Pulse 74 MON; Pulse Ox 97% ; ck1 17:00 BP 151 / 78 (auto/); ck1 17:00 Pulse 70 MON; Pulse Ox 97% ; ck1 17:30 BP 138 / 65 (auto/); ck1 17:30 Pulse 64 MON; Pulse Ox 96% ; ck1 17:59 Pulse 66 MON; Pulse Ox 96% ; ck1 18:00 BP 143 / 70 (auto/); ck1 18:27 BP 149 / 70 (auto/); ck1 18:28 Pulse 66 MON; Pulse Ox 98% ; ck1 19:19 BP 148 / 70 (auto/); jp6 19:20 Pulse 64 MON; Pulse Ox 96% ; jp6 20:19 BP 142 / 64 (auto/); jp6 20:20 Pulse 70 MON; Pulse Ox 96% ; jp6 20:49 BP 146 / 79 (auto/); jp6 20:49 Pulse 72 MON; Pulse Ox 94% ; jp6 21:19 BP 140 / 65 (auto/); jp6 21:20 Pulse 72 MON; Pulse Ox 94% ; jp6 21:53 Temp 99.4(O); tk 22:19 BP 134 / 70 (auto/); jp6 22:20 Pulse 66 MON; Pulse Ox 96% ; jp6 16:14 Body Mass Index 34.96 (120.20 kg, 185.42 cm) dem1 MDM: 16:20 Aspirin Chewable Tablet 324 mg PO once ordered. fg 16:20 Ammunition Assembly Ii Laborer/Pulse Ox/q 30 min VS ordered. fg 16:20 IV Saline Lock ordered. fg 16:20 Rhythm Strip to chart ordered. fg 16:20 Undress patient appropriately for examination ordered. fg 16:21 B-Type Natiuretic Peptide Ordered. EDMS 16:21 Basic Metabolic Profile Ordered. EDMS 16:21 CBC with Diff Ordered. EDMS 16:21 Cardiac Injury Profile Ordered. EDMS 16:21 Troponin Ordered. EDMS 16:21 Chest, 2 View (pa\E\lat) Ordered. EDMS 16:21 ECG WITH READING ER PHYS+CARDIAG ordered. EDMS 17:42 BED REQUEST+ADM ordered. EDMS 18:13 Financial registration complete. gjb 18:16 [facility] Payment Agreement was scanned into [employer] and attached to record. gjb 18:31 Acetaminophen Tablet 650 mg PO once ordered. fg 18:36 Acetaminophen Tablet 650 mg PO once ordered. ck1 18:38 REGULAR+DIET ordered. EDMS 18:38 REGULAR+DIET ordered. EDMS 18:44 CT Chest Angio R/O PE Ordered. EDMS 19:35 Basic Metabolic Profile Reviewed. cs11 19:35 CBC with Diff Reviewed. cs11 19:35 Cardiac Injury Profile Reviewed. cs11 19:35 B-Type Natiuretic Peptide Reviewed. cs11 19:35 Troponin Reviewed. cs11 19:35 Chest, 2 View (pa\E\lat) Reviewed. cs11 19:37 Misc Invoice Machine Operator Order ordered. cs11 19:47 Misc Invoice Machine Operator Order complete. tmm1 19:48 ECG WITH READING ER PHYS ordered. EDMS 19:48 CARDIAC MARKER PANEL Ordered. EDMS 20:20 Admission / Observation Status ordered. EDMS 20:20 2 GRAM SODIUM DIET ordered. EDMS 20:21 COMPLETE BLOOD COUNT Ordered. EDMS 20:21 BASIC METABOLIC PROFILE Ordered. EDMS 22:55 oxyCODONE-acetaminophen 5 mg-325 mg 1 tabs PO once ordered. jp6 11/06 13:05 Radiology Report was scanned into [employer] and attached to record. gb 13:06 T-Sheet-- Draft Copy was scanned into [employer] and attached to record. gb 13:06 ECG/EKG was scanned into [employer] and attached to record. gb Administered Medications: 11/05 16:40 Drug: Aspirin 324 mg [aspirin 81 mg chewable tablet (4 tabs)] Route: PO; ck1 18:36 Drug: Acetaminophen 650 mg [acetaminophen 325 mg tablet (2 tabs)] Route: PO; ck1 21:30 Drug: oxyCODONE-acetaminophen 1 tabs [oxycodone-acetaminophen 5 mg-325 mg tablet (1 jp6 tabs)] Route: PO; Signatures: Dispatcher [employer] EDMS Mansi Clark, Reg Reg gb May GoldmanRN RN ck1 Aníbal Kemp DO DO cs11 Teresa Armenta RN RN ttb Tiffanie Reed, ENVIRONMENTAL SYSTEMS COORDINATOR ENVIRONMENTAL SYSTEMS COORDINATOR tmm1 Mel Smart MD MD fg Beck, Gabriela gjb Palmer, Jessica,RN RN jp6 The chart was reviewed and I authenticate all verbal orders and agree with the evaluation and treatment provided.Corrections: (The following items were deleted from the chart) 16:39 16:21 ECG WITH READING ER PHYS+CARDIAG ordered. EDMS EDMS Attachments: 18:16 [facility] Payment Agreement gjb 13:06 T-Sheet-- Draft Copy gb 13:06 ECG/EKG gb Chart Complete MTDD
--- NOTE | 2016-11-08 00:04 | EDDOCDS ---
Physician Documentation [facility] Name: Neel Varner Age: 71 yrs Sex: Male : 1945 Arrival Date: 11/05/2016 Time: 16:10 Bed OBSERVATION Private MD: Guido Disposition: 11/05/16 21:01 Hospitalization ordered by Norma Matta for Inpatient Admission. Preliminary diagnosis is Chest pain, unspecified. - Bed requested for PCU. - Status is Inpatient Admission. jp6 - Condition is Stable. - Problem is new. - Symptoms have improved. Historical: - Allergies: no known allergies; - Home Meds: 1. lisinopril 30 mg Oral tab 1 tab once daily (Last dose: 11/04/2016) 2. digoxin 0.25mg Oral soln once daily (Last dose: 11/04/2016) 3. Eliquis 5 mg oral tab 1 tab 2 times per day (Last dose: 11/05/2016 07:30) 4. hydrochlorothiazide 12.5 mg Oral cap 1 cap once daily (Last dose: 11/05/2016 07:00) 5. Nexium 40 mg Oral cpDR 1 cap once daily (Last dose: 11/04/2016) 6. atorvastatin 10 mg oral tab 1 tab once daily (Last dose: 11/04/2016) - PMHx: afib; Hypercholesterolemia; Hypertension; pericardial effusion; - PSHx: left knee arthroplasty; Prostatectomy; - Social history: Smoking status: Patient states was never smoker of tobacco. Patient/guardian denies using alcohol, street drugs, No barriers to communication noted, The patient speaks fluent Togolese, Speaks appropriately for age. - Family history: Not pertinent. - : The pt / caregiver states he / she is on anticoagulants: Eliquis Home medication list is obtained from the patient. - Exposure Risk Screening:: None identified. Vital Signs: 11/05 16:14 BP 162 / 72; Pulse 75; Resp 18; Temp 97.9(O); Pulse Ox 98% on R/A; Weight 120.2 kg / dem1 265 lbs; Height 6 ft. 1 in. (185.42 cm); Pain 7/10; 16:30 BP 145 / 76 (auto/); ck1 16:30 Pulse 72 MON; Pulse Ox 97% ; ck1 16:31 Pulse 74 MON; Pulse Ox 97% ; ck1 17:00 BP 151 / 78 (auto/); ck1 17:00 Pulse 70 MON; Pulse Ox 97% ; ck1 17:30 BP 138 / 65 (auto/); ck1 17:30 Pulse 64 MON; Pulse Ox 96% ; ck1 17:59 Pulse 66 MON; Pulse Ox 96% ; ck1 18:00 BP 143 / 70 (auto/); ck1 18:27 BP 149 / 70 (auto/); ck1 18:28 Pulse 66 MON; Pulse Ox 98% ; ck1 19:19 BP 148 / 70 (auto/); jp6 19:20 Pulse 64 MON; Pulse Ox 96% ; jp6 20:19 BP 142 / 64 (auto/); jp6 20:20 Pulse 70 MON; Pulse Ox 96% ; jp6 20:49 BP 146 / 79 (auto/); jp6 20:49 Pulse 72 MON; Pulse Ox 94% ; jp6 21:19 BP 140 / 65 (auto/); jp6 21:20 Pulse 72 MON; Pulse Ox 94% ; jp6 21:53 Temp 99.4(O); tk 22:19 BP 134 / 70 (auto/); jp6 22:20 Pulse 66 MON; Pulse Ox 96% ; jp6 16:14 Body Mass Index 34.96 (120.20 kg, 185.42 cm) dem1 MDM: 16:20 Aspirin Chewable Tablet 324 mg PO once ordered. fg 16:20 Home Improvement Contractor/Pulse Ox/q 30 min VS ordered. fg 16:20 IV Saline Lock ordered. fg 16:20 Rhythm Strip to chart ordered. fg 16:20 Undress patient appropriately for examination ordered. fg 16:21 B-Type Natiuretic Peptide Ordered. EDMS 16:21 Basic Metabolic Profile Ordered. EDMS 16:21 CBC with Diff Ordered. EDMS 16:21 Cardiac Injury Profile Ordered. EDMS 16:21 Troponin Ordered. EDMS 16:21 Chest, 2 View (pa\E\lat) Ordered. EDMS 16:21 ECG WITH READING ER PHYS+CARDIAG ordered. EDMS 17:42 BED REQUEST+ADM ordered. EDMS 18:13 Financial registration complete. gjb 18:16 [facility] Payment Agreement was scanned into [employer] and attached to record. gjb 18:31 Acetaminophen Tablet 650 mg PO once ordered. fg 18:36 Acetaminophen Tablet 650 mg PO once ordered. ck1 18:38 REGULAR+DIET ordered. EDMS 18:38 REGULAR+DIET ordered. EDMS 18:44 CT Chest Angio R/O PE Ordered. EDMS 19:35 Basic Metabolic Profile Reviewed. cs11 19:35 CBC with Diff Reviewed. cs11 19:35 Cardiac Injury Profile Reviewed. cs11 19:35 B-Type Natiuretic Peptide Reviewed. cs11 19:35 Troponin Reviewed. cs11 19:35 Chest, 2 View (pa\E\lat) Reviewed. cs11 19:37 Misc Cook Apprentice Pastry Order ordered. cs11 19:47 Misc Cook Apprentice Pastry Order complete. tmm1 19:48 ECG WITH READING ER PHYS ordered. EDMS 19:48 CARDIAC MARKER PANEL Ordered. EDMS 20:20 Admission / Observation Status ordered. EDMS 20:20 2 GRAM SODIUM DIET ordered. EDMS 20:21 COMPLETE BLOOD COUNT Ordered. EDMS 20:21 BASIC METABOLIC PROFILE Ordered. EDMS 22:55 oxyCODONE-acetaminophen 5 mg-325 mg 1 tabs PO once ordered. jp6 11/06 13:05 Radiology Report was scanned into [employer] and attached to record. gb 13:06 T-Sheet-- Draft Copy was scanned into [employer] and attached to record. gb 13:06 ECG/EKG was scanned into [employer] and attached to record. gb Administered Medications: 11/05 16:40 Drug: Aspirin 324 mg [aspirin 81 mg chewable tablet (4 tabs)] Route: PO; ck1 18:36 Drug: Acetaminophen 650 mg [acetaminophen 325 mg tablet (2 tabs)] Route: PO; ck1 21:30 Drug: oxyCODONE-acetaminophen 1 tabs [oxycodone-acetaminophen 5 mg-325 mg tablet (1 jp6 tabs)] Route: PO; Signatures: Dispatcher [employer] EDMS Mansi Clark, Reg Reg gb May GoldmanRN RN ck1 Aníbal Kemp DO DO cs11 Teresa Armenta RN RN ttb Tiffanie Reed, EARLY HEAD START TEACHER EARLY HEAD START TEACHER tmm1 Mel Smart MD MD fg Beck, Gabriela gjb Palmer, Jessica,RN RN jp6 The chart was reviewed and I authenticate all verbal orders and agree with the evaluation and treatment provided.Corrections: (The following items were deleted from the chart) 16:39 16:21 ECG WITH READING ER PHYS+CARDIAG ordered. EDMS EDMS Attachments: 18:16 [facility] Payment Agreement gjb 13:06 T-Sheet-- Draft Copy gb 13:06 ECG/EKG gb Chart Complete MTDD
--- NOTE | 2016-11-08 00:04 | EDDOCDS ---
Nurse's Notes [facility] Name: Neel Varner Age: 71 yrs Sex: Male : 1945 Arrival Date: 11/05/2016 Time: 16:10 Bed OBSERVATION Private MD: Guido Diagnosis: Chest pain, unspecified Presentation: 11/05 16:16 Presenting complaint: Patient states: mid chest pain x2 hours. Constant. Some SOB. No ttb n/v. Pt sitting at desk when pain started. Aspirin was not taken prior to arrival. Adult Sepsis Screening: The patient does not have new or worsening altered mentation. Patient's respiratory rate is less than 22. Systolic blood pressure is greater than 100. Patient has a qSOFA score of 0- Negative Sepsis Screen. Suicide/Homicide risk assessment- the patient denies having any suicidal and/or homicidal ideations and does not present with any other emotional, behavioral or mental health complaints. Status: Patient is not a readers' advisory service librarian or dependent. Transition of care: patient was not received from another setting of care. 16:16 Acuity: LISA Level 3 ttb 16:16 Method Of Arrival: Walkin/Carried/Asstd ttb 16:43 Acuity level changed due to complexity of care. ck1 16:43 Acuity: LISA Level 2 ck1 Triage Assessment: 16:16 General: Appears in no apparent distress, well nourished, well groomed, Behavior is ttb appropriate for age, cooperative, pleasant. Pain: Location: mid chest Pain currently is 6 out of 10 on a pain scale. Pain does not radiate. Quality of pain is described as pressure, sharp. Cardiovascular: Chest pain is described as Pain is 6 out of 10 on a pain scale. radiates Does not radiate. episodes are continuous began 2 hours prior to arrival. Respiratory: Airway is patent Respiratory effort is even, unlabored, Reports shortness of breath pain with respiration Denies cough, labored breathing. GI: Denies nausea, vomiting, pain. Derm: Skin is normal. Injury Description: fell yesterday while walking dog. Fell on "face". Historical: - Allergies: no known allergies; - Home Meds: 1. lisinopril 30 mg Oral tab 1 tab once daily (Last dose: 11/04/2016) 2. digoxin 0.25mg Oral soln once daily (Last dose: 11/04/2016) 3. Eliquis 5 mg oral tab 1 tab 2 times per day (Last dose: 11/05/2016 07:30) 4. hydrochlorothiazide 12.5 mg Oral cap 1 cap once daily (Last dose: 11/05/2016 07:00) 5. Nexium 40 mg Oral cpDR 1 cap once daily (Last dose: 11/04/2016) 6. atorvastatin 10 mg oral tab 1 tab once daily (Last dose: 11/04/2016) - PMHx: afib; Hypercholesterolemia; Hypertension; pericardial effusion; - PSHx: left knee arthroplasty; Prostatectomy; - Social history: Smoking status: Patient states was never smoker of tobacco. Patient/guardian denies using alcohol, street drugs, No barriers to communication noted, The patient speaks fluent Venezuelan, Speaks appropriately for age. - Family history: Not pertinent. - : The pt / caregiver states he / she is on anticoagulants: Eliquis Home medication list is obtained from the patient. - Exposure Risk Screening:: None identified. Screenin:40 Screening information is obtained from the patient. Fall risk: No risks identified. ck1 Assistance ADL's: requires no assistance with activities of daily living. Abuse/DV Screen: The patient / caregiver reports he/she is: not in a situation that causes fear, pain or injury. Nutritional screening: No deficits noted. Advance Directives: Currently, there is a health care proxy, Kathie Varner (). home support is adequate. Assessment: 16:40 General: Appears in no apparent distress, comfortable, Behavior is appropriate for age, ck1 cooperative. Pain: Location: chest Pain currently is 6 out of 10 on a pain scale. Pain does not radiate. Cardiovascular: Rhythm is sinus rhythm. Respiratory: Respiratory effort is unlabored, Respiratory pattern is regular, symmetrical. GI: No deficits noted. Derm: Skin is intact, is healthy with good turgor, Skin is pink, warm & dry. Musculoskeletal: Circulation, motion, and sensation intact Range of motion intact in all extremities. 17:40 General: Appears in no apparent distress, comfortable, Behavior is appropriate for age, ck1 cooperative. Pain: Location: chest Pain currently is 6 out of 10 on a pain scale. Neurological: Level of Consciousness is awake, alert, obeys commands, Oriented to person, place, time. Cardiovascular: Rhythm is regular. Respiratory: No deficits noted. GI: No deficits noted. Derm: Skin is intact, is healthy with good turgor, Skin is pink, warm & dry. Musculoskeletal: Circulation, motion, and sensation intact Range of motion intact in all extremities. 18:37 General: Appears in no apparent distress, comfortable, Behavior is appropriate for age, ck1 cooperative, pleasant. Pain: Location: chest Pain currently is 6 out of 10 on a pain scale. Neurological: Level of Consciousness is awake, alert, obeys commands, Oriented to person, place, time. Cardiovascular: Rhythm is sinus rhythm. Respiratory: Respiratory effort is unlabored, Respiratory pattern is regular, symmetrical. Respiratory: Respiratory effort is unlabored, Respiratory pattern is regular, symmetrical. GI: No deficits noted. Derm: Skin is intact, is healthy with good turgor, Skin is pink, warm & dry. 19:23 Reassessment: Patient appears in no apparent distress at this time. Patient states jp6 symptoms have improved. General: Appears in no apparent distress, comfortable, well developed, Behavior is appropriate for age, cooperative. Pain: Location: chest Pain currently is 2 out of 10 on a pain scale. Pain does not radiate. Quality of pain is described as burning. Neurological: Level of Consciousness is awake, alert, Oriented to person, place, time. EENT: No deficits noted. Cardiovascular: Capillary refill < 3 seconds Heart tones S1 S2 present Rhythm is sinus rhythm No ectopy. Respiratory: No deficits noted. Airway is patent Respiratory effort is even, unlabored, Respiratory pattern is regular, symmetrical, Breath sounds are clear bilaterally. GI: No deficits noted. Abdomen is flat, Bowel sounds present X 4 quads. : No deficits noted. Derm: Skin is pink, warm & dry. Musculoskeletal: No deficits noted. 20:30 Reassessment: Patient appears in no apparent distress at this time. Patient states jp6 symptoms have improved. General: Appears in no apparent distress, comfortable, Behavior is appropriate for age, cooperative. Pain: Denies pain. Neurological: Level of Consciousness is awake. Cardiovascular: Capillary refill < 3 seconds Rhythm is sinus rhythm No ectopy. Respiratory: Airway is patent Respiratory effort is even, unlabored, Respiratory pattern is regular, symmetrical. Derm: Skin is pink, warm & dry. 21:43 Reassessment: Patient appears in no apparent distress at this time. c/o headache and jp6 left sided chest pain again-03/10 medicated w/ percocet 1 tab at 2130.. General: Appears in no apparent distress, uncomfortable, Behavior is appropriate for age, cooperative. Pain: Location: face and chest Pain currently is 5 out of 10 on a pain scale. Neurological: Level of Consciousness is awake, alert. Cardiovascular: Capillary refill < 3 seconds Rhythm is sinus rhythm No ectopy. Respiratory: Airway is patent Respiratory effort is even, unlabored, Respiratory pattern is regular, symmetrical. Derm: Skin is pink, warm & dry. 22:29 Reassessment: Patient appears in no apparent distress at this time. Patient states jp6 symptoms have improved. General: Appears in no apparent distress, comfortable, Behavior is appropriate for age, cooperative. Pain: Denies pain. Neurological: Level of Consciousness is awake, alert, Oriented to person, place, time. Cardiovascular: Capillary refill < 3 seconds Rhythm is sinus rhythm No ectopy. Respiratory: No deficits noted. Airway is patent Respiratory effort is even, unlabored, Respiratory pattern is regular, symmetrical. : : Derm: Skin is pink, warm & dry. Vital Signs: 16:14 BP 162 / 72; Pulse 75; Resp 18; Temp 97.9(O); Pulse Ox 98% on R/A; Weight 120.2 kg; dem1 Height 6 ft. 1 in. (185.42 cm); Pain /; 16:30 BP 145 / 76 (auto/); ck1 16:30 Pulse 72 MON; Pulse Ox 97% ; ck1 16:31 Pulse 74 MON; Pulse Ox 97% ; ck1 17:00 BP 151 / 78 (auto/); ck1 17:00 Pulse 70 MON; Pulse Ox 97% ; ck1 17:30 BP 138 / 65 (auto/); ck1 17:30 Pulse 64 MON; Pulse Ox 96% ; ck1 17:59 Pulse 66 MON; Pulse Ox 96% ; ck1 18:00 BP 143 / 70 (auto/); ck1 18:27 BP 149 / 70 (auto/); ck1 18:28 Pulse 66 MON; Pulse Ox 98% ; ck1 19:19 BP 148 / 70 (auto/); jp6 19:20 Pulse 64 MON; Pulse Ox 96% ; jp6 20:19 BP 142 / 64 (auto/); jp6 20:20 Pulse 70 MON; Pulse Ox 96% ; jp6 20:49 BP 146 / 79 (auto/); jp6 20:49 Pulse 72 MON; Pulse Ox 94% ; jp6 21:19 BP 140 / 65 (auto/); jp6 21:20 Pulse 72 MON; Pulse Ox 94% ; jp6 21:53 Temp 99.4(O); tk 22:19 BP 134 / 70 (auto/); jp6 22:20 Pulse 66 MON; Pulse Ox 96% ; jp6 16:14 Body Mass Index 34.96 (120.20 kg, 185.42 cm) [facility] Vitals: 16:14 Log In Time: November 05, 2016 at 16:08. RN notified that patient meets [facility] criteria. ED Course: 16:14 Patient visited by Celia Olmos. dem1 16:14 Guido is Private Physician. dem1 16:14 Patient moved to Waiting dem1 16:17 Triage Initiated ttb 16:19 Patient visited by Teresa Armenta RN. ttb 16:19 May Goldman,LUCA is Primary Nurse. ttb 16:19 Mel Smart MD is Attending Physician. fg 16:19 Patient moved to 5 ttb 16:31 Patient visited by Yeni Corral PCA. jlf 16:31 property assessment monitor on. Pulse ox on. NIBP on. jlf 16:31 EKG done. (by ED staff). Reviewed by Mel Smart MD. jlf 16:40 B-Type Natiuretic Peptide Sent. ck1 16:40 Basic Metabolic Profile Sent. ck1 16:40 CBC with Diff Sent. ck1 16:40 Cardiac Injury Profile Sent. ck1 16:40 Troponin Sent. ck1 16:40 Inserted saline lock: 18 gauge in right forearm and blood collected. The patient ck1 tolerated the procedure well. 16:41 The patient / caregiver is instructed regarding the plan of care and ED course. ck1 16:50 Patient visited by Teresa Armenta RN. ttb 17:20 Patient visited by Mel Smart MD. fg 17:43 Patient visited by May Goldamn,LUCA. ck1 17:51 Patient visited by May Goldman,LUCA. ck1 17:51 No procedures done that require assistance. ck1 18:16 [facility] Payment Agreement was scanned into [employer] and attached to record. gjb 18:36 Patient visited by May Goldman,LUCA. ck1 18:52 Patient visited by May Goldman,LUCA. ck1 18:57 Attending Physician role handed off by Mel Smart MD cs11 18:57 Aníbal Kemp DO is Attending Physician. cs11 19:05 Chest, 2 View (pa\\E\\lat) Returned. EDMS 19:[address] angio and ret'. jp6 19:57 Norma Matta data management specialist. ys2 19:59 Patient visited by Jil El,LUCA. jp6 20:01 CT Chest Angio R/O PE Returned. EDMS 20:06 Patient moved to OBSERVATION cs11 21:01 Norma Matta is Hospitalizing Provider. cs11 21:53 Patient visited by Pierre Badillo. tk 22:55 Primary Nurse role handed off by May Goldman RN ck1 23:03 Jil El RN is Primary Nurse. jp6 01 13:05 Radiology Report was scanned into [employer] and attached to record. gb 13:06 T-Sheet-- Draft Copy was scanned into [employer] and attached to record. gb 13:06 ECG/EKG was scanned into [employer] and attached to record. gb Administered Medications: 11/05 16:40 Drug: Aspirin 324 mg [aspirin 81 mg chewable tablet (4 tabs)] Route: PO; ck1 18:36 Drug: Acetaminophen 650 mg [acetaminophen 325 mg tablet (2 tabs)] Route: PO; ck1 21:30 Drug: oxyCODONE-acetaminophen 1 tabs [oxycodone-acetaminophen 5 mg-325 mg tablet (1 jp6 tabs)] Route: PO; Order Results: Lab Order: B-Type Natiuretic Peptide; SPEC'M 11/05/16 16:37 Test: BRAIN NATRIURETIC PEPTIDE; Value: 20.1; Range: <100; Units: PG/ML; Status: F Lab Order: Basic Metabolic Profile; SPEC'M 11/05/16 16:37 Test: GLUCOSE, FASTING; Value: 112; Range: 83-110; Abnormal: Above high normal; Units: MG/DL; Status: F Test: BLOOD UREA NITROGEN; Value: 17; Range: 7-18; Units: MG/DL; Status: F Test: CREATININE FOR GFR; Value: 0.86; Range: 0.70-1.30; Units: MG/DL; Status: F Test: GLOMERULAR FILTRATION RATE; Value: > 60.0; Range: >42; Status: F Test: SODIUM LEVEL; Value: 142; Range: 136-145; Units: MEQ/L; Status: F Test: POTASSIUM SERUM; Value: 3.6; Range: 3.5-5.1; Units: MEQ/L; Status: F Test: CHLORIDE LEVEL; Value: 106; Range: 98-107; Units: MEQ/L; Status: F Test: CARBON DIOXIDE LEVEL; Value: 26; Range: 21-32; Units: MEQ/L; Status: F Test: ANION GAP; Value: 10; Range: 8-16; Units: MEQ/L; Status: F Test: CALCIUM LEVEL; Value: 8.9; Range: 8.8-10.2; Units: MG/DL; Status: F Test Note: ; Units are mL/min/1.73 m2 Chronic Kidney Disease Staging per NKF: Stage I & II GFR >=60 Normal to Mildly Decreased Stage III GFR 30-59 Moderately Decreased Stage IV GFR 15-29 Severely Decreased Stage V GFR <15 Very Little GFR Left ESRD GFR <15 on [employer] ADMINISTRATOR Lab Order: CBC with Diff; SPEC'M 11/05/16 16:37 Test: WHITE BLOOD COUNT; Value: 7.0; Range: 4.0-10.0; Units: K/mm3; Status: F Test: RED BLOOD COUNT; Value: 4.79; Range: 4.30-6.10; Units: M/mm3; Status: F Test: HEMOGLOBIN; Value: 13.4; Range: 14.0-18.0; Abnormal: Below low normal; Units: g/dl; Status: F Test: HEMATOCRIT; Value: 39.1; Range: 42.0-52.0; Abnormal: Below low normal; Units: %; Status: F Test: MEAN CORPUSCULAR VOLUME; Value: 81.7; Range: 80.0-96.0; Units: fl; Status: F Test: MEAN CORPUSCULAR HEMOGLOBIN; Value: 28.0; Range: 27.0-33.0; Units: pg; Status: F Test: MEAN CORPUSCULAR HGB CONC; Value: 34.3; Range: 32.0-36.5; Units: g/dl; Status: F Test: RED CELL DISTRIBUTION WIDTH; Value: 14.4; Range: 11.5-14.5; Units: %; Status: F Test: PLATELET COUNT, AUTOMATED; Value: 203; Range: 150-450; Units: k/mm3; Status: F Test: NEUTROPHILS %; Value: 73.9; Range: 36.0-66.0; Abnormal: Above high normal; Units: %; Status: F Test: LYMPH %; Value: 10.8; Range: 24.0-44.0; Abnormal: Below low normal; Units: %; Status: F Test: MONO %; Value: 8.4; Range: 0.0-5.0; Abnormal: Above high normal; Units: %; Status: F Test: EOS %; Value: 1.3; Range: 0.0-3.0; Units: %; Status: F Test: BASO %; Value: 2.6; Range: 0.0-1.0; Abnormal: Above high normal; Units: %; Status: F Test: LARGE UNSTAINED CELL %; Value: 3.0; Range: 0.0-4.0; Units: %; Status: F Test: NEUTROPHILS #; Value: 5.2; Range: 1.8-7.7; Units: K/mm3; Status: F Test: LYMPH #; Value: 1.0; Range: 1.5-4.5; Abnormal: Below low normal; Units: K/mm3; Status: F Test: MONO #; Value: 0.6; Range: 0.0-0.8; Units: K/mm3; Status: F Test: EOS #; Value: 0.1; Range: 0.0-0.50; Units: K/mm3; Status: F Test: BASO #; Value: 0.2; Range: 0.0-0.2; Units: K/mm3; Status: F Test: LARGE UNSTAINED CELL #; Value: 0.2; Range: 0.0-0.4; Units: K/mm3; Status: F Lab Order: Cardiac Injury Profile; SPEC'M 11/05/16 16:37 Test: CPK CREATINE PHOSPHOKINASE; Value: 123; Range: 39-308; Units: U/L; Status: F Test: CK-MB VALUE MASS; Value: 5.5; Range: 0.0-3.6; Abnormal: Above high normal; Units: NG/ML; Status: F Test: MB/CK RELATIVE INDEX; Value: 4.47; Range: < OR =4; Abnormal: Above high normal; Status: F Test Note: ; DIAGNOSIS CRITERIA MMB ng/ml Relative Index (RI) NON-AMI < or = 5 N/A JACOME ZONE > 5 < or = 4 AMI > 5 > 4 Lab Order: Troponin; SPEC'M 11/05/16 16:37 Test: TROPONIN I; Value: < 0.02; Range: < 0.10; Units: NG/ML; Status: F Test Note: ; Troponin I Reference Interval for [employer] LOCI: 99th Percentile= 0.00-0.045 ng/ml Risk Stratification: <= 0.10 ng/ml Decreased Risk for Adverse Clinical Events. 0.10-1.50 ng/ml Increased Risk for Adverse Clinical Events. Evaluation of additional criterion and/or repeat testing in 2-6 hours is suggested to rule out myocardial damage. >= 1.50 ng/ml Indicative of Myocardial Injury. Radiology Order: Chest, 2 View (pa\\E\\lat) Test: Chest, 2 View (pa\\E\\lat) REASON FOR EXAMINATION: Chest Pain; PA and lateral chest 11/05/2016; ; Indication: Chest pain; ; Comparison: PA chest with left rib series 12/09/2012, PA and lateral chest; 11/25/2011.; ; Findings: The cardiac silhouette is of normal size. 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 Bones and soft tissues are within normal; limits.; ; Impression: tortuosity and ectasia / mild aneurysmal dilatation of the ascending; thoracic aorta is noted. Cardiac silhouette is of normal size; ; Bibasilar fibro atelectatic changes; ; Blunting in the right costophrenic angle may represent minimal pleural effusion; or atelectasis/ scarring; ; ; Signed by; Linda Weems MD 11/05/2016 06:05 P; Radiology Order: CT Chest Angio R/O PE Test: CT Chest Angio R/O PE REASON FOR EXAMINATION: Chest Pain; ; CLINICAL HISTORY: Dyspnea, exclude PE.; TECHNIQUE: Multiple incremental axial, coronal and oblique images are obtained from the thoracic inle; t to the upper abdomen. Intravenous contrast material was administered as per pulmonary embolism prot; ocol.; COMMENTS:; There is excellent opacification of pulmonary arterial system without evidence for pulmonary embolism; . Aorta is of normal caliber without evidence for dissection or aneurysm.; There is no evidence of pleural or parenchymal mass. There are no pleural effusions. Calcified bilat; eral hilar and mediastinal lymph nodes are present compatible with prior granulomatous disease.; There is no evidence of hilar or mediastinal lymphadenopathy. The heart is enlarged. There is pulmon; concepción venous congestive changes present.; Several hepatic cysts are present. Liver is otherwise unremarkable.; The bony structures are free of lytic or blastic lesions. Multilevel degenerative changes are seen in; volving the visualized thoracolumbar spine.; Scattered calcifications are seen involving the aorta and major branches compatible with atherosclero; sis.; IMPRESSION:; No evidence for pulmonary embolism.; Calcified bilateral hilar and mediastinal lymph nodes are present compatible with prior granulomatous; disease.; The heart is enlarged. There is pulmonary venous congestive changes present.; Several hepatic cysts are present.; ; ; Thank you for your kind referral of this patient. We appreciate the opportunity to participate in [facility]; s patient's care.; ; ; ; Outcome: 21:01 Decision to Hospitalize by Provider. cs11 22:20 Discharge Assessment: Patient awake, alert and oriented x 3. No cognitive and/or jp6 functional deficits noted. Patient verbalized understanding of disposition instructions. patient administered narcotics - yes. Patient was admitted to the hospital or transferred to another facility. The following High Risk Discharge criteria are identified: None. Admitted to PCU accompanied by nurse, accompanied by tech, via stretcher, on monitor, with chart. Condition: stable. CT Study completed. Admission hand-off: Report Faxed Fax receipt verified by [facility]. Property :Personal belongings accompany Pt. 23:03 Patient left the ED. jp6 Signatures: Dispatcher [employer] EDMS Mansi Clark, Reg Reg gb Susi,May,RN RN ck1 Nickolas, Celia dem1 Aníbal Kemp, DO DO cs11 Teresa Armenta, RN RN ttb Yeni Corral, KORIN OUTSIDE COLLECTOR Mel Obrien MD MD fg Kenealy, Timothy tk Beck, Gabriela gjb Sung, Yu 2 Jil El,RN RN jp6 Corrections: (The following items were deleted from the chart) 16:19 16:16 Presenting complaint: Patient states: mid chest pain x2 hours. Constant. Some ttb SOB. No n/v. ttb Chart Complete MTDD
== END 2016-11-06 14:08 | disposition home or self-care (01) ==
LOC: M ED 16:10 → M ED INP 20:17 → M PCU 23:07
PROVIDERS: ADMIT Internal Medicine; ATTEND Internal Medicine
DX: R07.89 Other chest pain (principal); I48.0 Paroxysmal atrial fibrillation; K21.9 Gastro-esophageal reflux disease without esophagitis; I10 Essential (primary) hypertension; E78.00 Pure hypercholesterolemia, unspecified; Z79.899 Other long term (current) drug therapy; Z85.46 Personal history of malignant neoplasm of prostate
CPT/HCPCS: 36415; 70450; 71020; 71275; 80048; 80162; 82306; 82550; 82553; 83880; 85025; 85027; 93005; 93041; 99285; Q9967

== ENCOUNTER → 2016-11-05 | Outpatient (CLI) | payer BC, OTHER ==
[~2016-11-05] MED LIST: ATOR1TAB19 PO; DIGO0.25 PO; ELIQ5TAB PO; FISH1000 PO; GLUCTAB4 PO; HYDR25TAB PO; LISI30TA4 PO; NEXI40CA PO; NORC5TAB PO; TYLE650T35 PO; VITA100066 PO; VITA500T88 PO; VITMTA PO
[2016-11-05 11:37] LABS: MEAN CORPUSCULAR HEMOGLOBIN 28.5 pg (27.0-33.0); MEAN CORPUSCULAR HGB CONC 34.1 g/dl (32.0-36.5); MEAN CORPUSCULAR VOLUME 83.6 fl (80.0-96.0); RED CELL DISTRIBUTION WIDTH 14.6 % (11.5-14.5); WHITE BLOOD COUNT 8.2 K/mm3 (4.0-10.0)
== END ==
LOC: M LAB 11:22
PROVIDERS: ATTEND Physician Assistant
DX: I48.0 Paroxysmal atrial fibrillation (principal)

== ENCOUNTER → 2016-11-24 | Outpatient (CLI) | payer BC, OTHER | LOC: M LAB 12:49 | PROVIDERS: ATTEND Radiology Radiation Oncology | DX: C61 Malignant neoplasm of prostate (principal) ==

== ENCOUNTER → 2016-11-25 | Outpatient (CLI) | payer BC, OTHER | LOC: M ONCR 08:56 | PROVIDERS: ATTEND Radiology Radiation Oncology | DX: C61 Malignant neoplasm of prostate (principal) ==

== ENCOUNTER → 2017-02-05 | Outpatient (CLI) | payer BC, OTHER ==
[~2017-02-05] MED LIST changes: +NORC1TAB4 PO; -NORC5TAB PO
[2017-02-05 15:35] LABS: MEAN CORPUSCULAR HEMOGLOBIN 28.7 pg (27.0-33.0); MEAN CORPUSCULAR HGB CONC 33.5 g/dl (32.0-36.5); MEAN CORPUSCULAR VOLUME 85.8 fl (80.0-96.0); WHITE BLOOD COUNT 6.4 K/mm3 (4.0-10.0)
[2017-02-05 15:41] LABS: ALBUMIN 3.5 GM/DL (3.2-5.2); ANION GAP 7 MEQ/L (8-16); BLOOD UREA NITROGEN 19 MG/DL (7-18); CALCIUM LEVEL 8.6 MG/DL (8.8-10.2); CARBON DIOXIDE LEVEL 26 MEQ/L (21-32); CHLORIDE LEVEL 106 MEQ/L (98-107); CREATININE FOR GFR 0.84 MG/DL (0.70-1.30); GLOMERULAR FILTRATION RATE > 60.0 (>42); GLUCOSE, FASTING 172 MG/DL (83-110); MAGNESIUM LEVEL 1.8 MG/DL (1.8-2.4); PHOSPHORUS LEVEL 3.1 MG/DL (2.5-4.9); POTASSIUM SERUM 3.8 MEQ/L (3.5-5.1); SODIUM LEVEL 139 MEQ/L (136-145)
== END ==
LOC: M LAB 14:40
PROVIDERS: ATTEND Physician Assistant
DX: I48.0 Paroxysmal atrial fibrillation (principal)

== ENCOUNTER → 2017-02-18 | Outpatient (REF) | payer BC, OTHER | LOC: M LAB REF 12:51 | PROVIDERS: ATTEND Internal Medicine | DX: I48.0 Paroxysmal atrial fibrillation (principal) ==

== ENCOUNTER → 2017-02-26 | Outpatient (CLI) | payer BC, OTHER ==
[~2017-02-26] MED LIST changes: +ISOVUE-370 76% 100ML VIAL (Q9967) As Ordered ONE
--- NOTE | 2017-03-04 07:48 | REP ---
Clinical: Gross hematuria. Technique: Axial precontrast, contrast enhanced, and delayed images of the abdomen and pelvis using 100 ml Isovue 370 intravenous contrast material with coronal and sagittal re-formations. Comparison: 03/01/2008. Findings: Evaluation of the urinary check system demonstrates age-related changes of the kidneys with chronic-appearing mild perinephric stranding and no evidence for hydroureteronephrosis, nephrolithiasis, or definite mass lesion. Bilateral parapelvic and cortical cysts are appreciated (left greater than right) measuring up to approximately 2.8 cm with essentially stable density measurements throughout the examination likely representing both simple and complex cysts. Phleboliths are identified in the pelvis. The bladder is unremarkable. Fatty infiltration to the liver is appreciated with scattered hypodensities likely representing hepatic cysts measuring up to 2.6 cm in the left lobe. Spleen, pancreas, gallbladder, and bilateral adrenal glands are normal. The enteric system is without obstruction or acute inflammatory process. Colonic diverticulosis noted without acute diverticulitis. Pelvis demonstrates normal bladder and no significant prostatic enlargement. No ascites. No free air. No significant adenopathy. Atherosclerotic changes of the vasculature noted without aneurysm or dissection. Skeletal structures demonstrate degenerative changes without focal osseous abnormality. Impression: 1. Kidneys demonstrate bilateral hypodense lesions likely representing simple and complex parapelvic and cortical cysts. Follow-up ultrasound at 9-12 months may be warranted. 2. Fatty infiltration to the liver with presumed scattered hepatic cysts may warrant similar ultrasound follow-up. 3. Diverticulosis. Signed by Severino Silveira MD 03/04/2017 07:40 A
== END ==
LOC: M RAD 16:35
PROVIDERS: ATTEND Internal Medicine
DX: R31.0 Gross hematuria (principal); K76.0 Fatty (change of) liver, not elsewhere classified; K57.90 Diverticulosis of intestine, part unspecified, without perforation or abscess without bleeding
CPT/HCPCS: 74178; Q9967

== ENCOUNTER → 2017-03-03 | Outpatient (REF) | payer BC, OTHER ==
[~2017-03-03] MED LIST changes: -ISOVUE-370 76% 100ML VIAL (Q9967) As Ordered ONE
== END ==
LOC: M SMT 17:16
PROVIDERS: ATTEND Nurse Practitioner Women's Health
DX: R31.0 Gross hematuria (principal)

== ENCOUNTER → 2017-03-15 | Outpatient (CLI) | payer BC, OTHER ==
[~2017-03-15] MED LIST changes: +CIPR5SUS PO; +PERCOCET PO
[2017-03-15 14:14] LABS: MEAN CORPUSCULAR HEMOGLOBIN 28.2 pg (27.0-33.0); MEAN CORPUSCULAR HGB CONC 32.5 g/dl (32.0-36.5); MEAN CORPUSCULAR VOLUME 86.8 fl (80.0-96.0); WHITE BLOOD COUNT 5.2 K/mm3 (4.0-10.0)
[2017-03-15 14:19] LABS: INR 1.18
[2017-03-15 14:35] LABS: ANION GAP 9 MEQ/L (8-16); BLOOD UREA NITROGEN 27 MG/DL (7-18); CALCIUM LEVEL 8.5 MG/DL (8.8-10.2); CARBON DIOXIDE LEVEL 26 MEQ/L (21-32); CHLORIDE LEVEL 106 MEQ/L (98-107); CREATININE FOR GFR 0.82 MG/DL (0.70-1.30); GLOMERULAR FILTRATION RATE > 60.0 (>42); GLUCOSE, FASTING 155 MG/DL (83-110); POTASSIUM SERUM 3.7 MEQ/L (3.5-5.1); SODIUM LEVEL 141 MEQ/L (136-145)
--- NOTE | 2017-03-15 14:41 | REP ---
Clinical: Gross hematuria. Preoperative assessment. Technique: PA and lateral. Comparison: 11/05/2016. Findings: Mediastinum and cardiac silhouette are stable. Lung richardson demonstrate chronic stable changes without acute consolidation, effusion, or pneumothorax. Skeletal structures are intact. Impression: Chronic stable changes. No obvious acute cardiopulmonary process. Signed by Severino Silveira MD 03/15/2017 02:32 P
--- NOTE | 2017-03-15 17:45 | ECGEPIP ---
Stationary ECG Study [facility] Test Date: 2017-03-15 Pat Name: MARTIN HILLS Department: Room: - Gender: M Personnel Officer: : 1945 Requested By: PASQUALE Hobson Order Number: [id number] Reading MD: Zina Osborne Measurements Intervals [place] Rate: 70 P: 23 AK: 198 QRS: -14 QRSD: 111 T: 21 QT: 393 QTc: 427 Interpretive Statements SINUS RHYTHM FIRST DEGREE BLOCK POSSIBLE RIGHT VENTRICULAR CONDUCTION DELAY LAD ST & T-WAVE ABNORMALITY MORE PROMINENT IMPROVED R WAVE PROGRESSION C/W 11/06/16 Electronically Signed On 03-15-2017 17:45:39 EDT by Zina Osborne
== END ==
LOC: M LAB 13:38
PROVIDERS: ATTEND Urology
DX: R31.0 Gross hematuria (principal)

== ENCOUNTER → 2017-03-23 | Day surgery (SDC) | payer BC, OTHER ==
[~2017-03-23] VITALS: Ht 185.4 cm; Wt 122.5 kg
[~2017-03-23] MED LIST changes: +CIPROFLOXACIN 500 MG TAB PO SCH; +LIDOCAINE 2% INJ 100 MG/5 ML SDV (FOR ANES.) As Ordered ONE; +LR 1,000 ML IV SCH; +MIDAZOLAM INJ 2 MG/2 ML VIAL (J2250) As Ordered ONE; +ONDANSETRON 4MG/2ML VIAL (J2405) As Ordered ONE; +ONDANSETRON 4MG/2ML VIAL (J2405) IV PRN; +PERCOCET 5MG/325MG TAB PO PRN; +PROPOFOL 200 MG/20 ML VIAL As Ordered ONE; +dexameTHASONE 4 MG/ML 1ML VIAL (J1100) As Ordered ONE; +ePHEDrine SULFATE 25 MG/5 ML(5MG/ML) SYRINGE As Ordered ONE; +fentaNYL 250 MCG/5 ML INJECTION (J3010) As Ordered ONE
[2017-03-23] MEDS: fentaNYL 100 MCG/2 ML INJECTION (J3010) IV PRN ×3 (16:20→16:35)
[2017-03-23 18:14] VITALS: BP 137/63
--- NOTE | 2017-03-24 11:18 | RO ---
DATE OF PROCEDURE: 03/23/2017 PREOPERATIVE DIAGNOSIS: Flat bladder lesions. POSTOPERATIVE DIAGNOSIS: Flat bladder lesions, neoplasms. FINDINGS: Multiple flat bladder lesions, neoplasms. PROCEDURE: Cystoscopy plus random bladder biopsies, plus exam under anesthesia. SURGEON: Chau High MD CARDIOLOGY TECH: None. ANESTHESIA: General. ESTIMATED BLOOD LOSS: N/A. HISTORY OF PRESENT ILLNESS: This is a 72-year-old male patient that had a workup due to gross hematuria. For this reason, he had a flexible ureteroscopy that found some flat lesions in the bladder dome and the posterior bladder. For this reason, he is here today for a cystoscopy plus exam under anesthesia, plus random bladder biopsies. DESCRIPTION OF PROCEDURE: With the patient under general anesthesia, in supine modified low lithotomy position, after prepping and draping the area of concern, which included the entire genitalia and abdomen, we introduced the cystoscope # 22 Guamanian in diameter with a 30 degree lens. Under videoendoscopic guidance, the fossa navicularis, penile urethra, bulbar urethra, membranous urethra, and bladder neck were totally normal. There was no prostatic urethra since he had a radical prostatectomy in the past. The bladder had multiple erythematous flat lesions, possible carcinoma in situ, possible radiation cystitis, and multiple varicosities also. Both ureteral orifices were seen. There were no papillary tumors. At that moment in time, we grabbed endoscopic biopsy forceps and took biopsies randomly from the left lateral wall, right lateral wall, dome posterior times two, and trigone for a total of six bladder biopsies. We then proceeded to grab a Bugbee and electrofulgurated and coagulated all biopsy sites. We then proceeded to take the cystoscope out and place a #20 Guamanian Garcia catheter to gravity and placed the balloon to 20 mL. PLAN: The patient will go home today with antibiotic and pain medication. He will followup at [facility] urology uvalde in three days for a voiding trial. There were no complications of his surgery. The exam under anesthesia demonstrated no masses in the rectum or any three dimensional masses by manual exam of the bladder. ELISE
== END | disposition home or self-care (01) ==
LOC: M SDC 12:04
PROVIDERS: ATTEND Urology
DX: R31.0 Gross hematuria (principal); I10 Essential (primary) hypertension; K21.9 Gastro-esophageal reflux disease without esophagitis; I48.91 Unspecified atrial fibrillation; Z92.3 Personal history of irradiation; Z79.02 Long term (current) use of antithrombotics/antiplatelets; Z79.899 Other long term (current) drug therapy; Z85.46 Personal history of malignant neoplasm of prostate; I34.0 Nonrheumatic mitral (valve) insufficiency; I35.8 Other nonrheumatic aortic valve disorders
CPT/HCPCS: 52224; 88305; J0690; J1100; J2250; J2405; J3010

== ENCOUNTER → 2017-04-05 | Outpatient (CLI) | payer BC, OTHER ==
[~2017-04-05] MED LIST changes: -CIPROFLOXACIN 500 MG TAB PO SCH; -LIDOCAINE 2% INJ 100 MG/5 ML SDV (FOR ANES.) As Ordered ONE; -LR 1,000 ML IV SCH; -MIDAZOLAM INJ 2 MG/2 ML VIAL (J2250) As Ordered ONE; -ONDANSETRON 4MG/2ML VIAL (J2405) As Ordered ONE; -ONDANSETRON 4MG/2ML VIAL (J2405) IV PRN; -PERCOCET 5MG/325MG TAB PO PRN; -PROPOFOL 200 MG/20 ML VIAL As Ordered ONE; -dexameTHASONE 4 MG/ML 1ML VIAL (J1100) As Ordered ONE; -ePHEDrine SULFATE 25 MG/5 ML(5MG/ML) SYRINGE As Ordered ONE; -fentaNYL 250 MCG/5 ML INJECTION (J3010) As Ordered ONE
== END ==
LOC: M LAB 11:42
PROVIDERS: ATTEND Nurse Practitioner Women's Health
DX: R31.0 Gross hematuria (principal)

== ENCOUNTER → 2017-07-12 | Outpatient (REF) | payer BC, OTHER | LOC: M LAB REF 12:55 | PROVIDERS: ATTEND Internal Medicine | DX: I48.0 Paroxysmal atrial fibrillation (principal) ==

== ENCOUNTER 2017-09-27 10:09 | Day surgery (SDC) | payer BC, OTHER ==
[~2017-09-27] VITALS: Ht 185.4 cm; Wt 117.5 kg
[~2017-09-27 10:09] MED LIST changes: +NS 1,000 ML IV ONE
[2017-09-27] MEDS ORDERED: PROPOFOL 200 MG/20 ML VIAL As Ordered ONE (11:02)
--- NOTE | 2017-09-27 11:37 | ROOR ---
Patient Name: Neel Varner Procedure Date: 09/27/2017 10:56 AM Date of : 1945 Age: 72 Room: [facility] Gender: Male Note Status: Finalized Procedure: Total Colonoscopy to Cecum + Cold Snare Polypectomy + Hemoclips Indications: High risk colon cancer surveillance: Personal history of colonic polyps, Last colonoscopy: 2015 Providers: Jake Duffy MD Referring MD: SHERRON BLANCHARD JR, MD Requesting Provider: Medicines: Monitored Anesthesia Care Complications: No immediate complications. Procedure: Pre-Anesthesia Assessment: - The heart rate, respiratory rate, oxygen saturations, blood pressure, adequacy of pulmonary ventilation, and response to care were monitored throughout the procedure. The Colonoscope was introduced through the anus and advanced to the cecum, identified by appendiceal orifice and ileocecal valve. The colonoscopy was performed without difficulty. The patient tolerated the procedure well. The quality of the bowel preparation was good. Findings: The perianal and digital rectal examinations were normal. Non-bleeding internal hemorrhoids were found during retroflexion. The hemorrhoids were small and Grade I (internal hemorrhoids that do not prolapse). Multiple small and large-mouthed diverticula were found in the recto-sigmoid colon, sigmoid colon and descending colon. The mucosa vascular pattern in the rectum was locally increased. Multiple sessile polyps were found in the ascending colon. The polyps were medium in size. These polyps were removed with a cold snare. Resection and retrieval were complete. To prevent bleeding after the polypectomy, four hemostatic clips were successfully placed (MR conditional). There was no bleeding at the end of the procedure. The exam was otherwise without abnormality on direct and retroflexion views. Impression: - Non-bleeding internal hemorrhoids. - Diverticulosis in the recto-sigmoid colon, in the sigmoid colon and in the descending colon. - Increased mucosa vascular pattern in the rectum. - Multiple medium polyps in the ascending colon, removed with a cold snare. Resected and retrieved. Clips (MR conditional) were placed. - The examination was otherwise normal on direct and retroflexion views. - The exam was otherwise normal to the cecum. Recommendation: - Patient has a contact number available for emergencies. The signs and symptoms of potential delayed complications were discussed with the patient. Return to normal activities tomorrow. Written discharge instructions were provided to the patient. - High fiber diet. - Discharge patient to home. - Continue present medications. - Await pathology results. - Telephone GI clinic for pathology results in 1 week. - Repeat colonoscopy for surveillance based on pathology results. - Resume Eliquis (apixaban) at prior dose tomorrow. - Check Portal Online for Path Results.([email or web address]) - The findings and recommendations were discussed with the patient's family. Jake Duffy MD Jake Duffy MD 09/27/2017 11:36:46 AM This report has been signed electronically. Number of Addenda: 0 Note Initiated On: 09/27/2017 10:56 AM Estimated Blood Loss: Estimated blood loss: none.
[2017-09-27 12:00] VITALS: BP 150/79
== END 2017-09-27 12:20 | disposition home or self-care (01) ==
LOC: M OPP 10:09
PROVIDERS: ATTEND Internal Medicine Gastroenterology
DX: Z12.11 Encounter for screening for malignant neoplasm of colon (principal); Z86.010 Personal history of colon polyps; K64.0 First degree hemorrhoids; K57.30 Diverticulosis of large intestine without perforation or abscess without bleeding; D12.2 Benign neoplasm of ascending colon; I10 Essential (primary) hypertension; E78.00 Pure hypercholesterolemia, unspecified; I48.91 Unspecified atrial fibrillation; R13.10 Dysphagia, unspecified; D50.9 Iron deficiency anemia, unspecified; K21.9 Gastro-esophageal reflux disease without esophagitis; K22.2 Esophageal obstruction; I31.3 Pericardial effusion (noninflammatory); G47.30 Sleep apnea, unspecified; G47.9 Sleep disorder, unspecified; Z85.46 Personal history of malignant neoplasm of prostate; N40.1 Benign prostatic hyperplasia with lower urinary tract symptoms; Z96.651 Presence of right artificial knee joint; Z79.899 Other long term (current) drug therapy; Z79.01 Long term (current) use of anticoagulants

== ENCOUNTER → 2017-11-08 | Outpatient (REF) | payer BC, OTHER ==
[2017-11-08 14:09] LABS: APPEARANCE, URINE HAZY (CLEAR); BACTERIA, URINE AUTO NEGATIVE (NEGATIVE); BILIRUBIN, URINE AUTO NEGATIVE (NEGATIVE); BLOOD, URINE BLOOD NEGATIVE (NEGATIVE); COLOR, URINE YELLOW (YELLOW); GLUCOSE, URINE (UA) AUTO NEGATIVE (NEGATIVE); KETONE, URINE AUTO NEGATIVE (NEGATIVE); LEUKOCYTE ESTERASE, URINE AUTO NEGATIVE (NEGATIVE); MUCUS, URINE SMALL (NEGATIVE); NITRITE, URINE AUTO NEGATIVE (NEGATIVE); PROTEIN, URINE AUTO NEGATIVE (NEGATIVE); RBC, URINE AUTO 0 /HPF (0-3); SPECIFIC GRAVITY URINE AUTO 1.021 (1.002-1.035); SQUAMOUS EPITHELIAL CELL UR AU 0 /HPF (0-6); UROBILINOGEN, URINE AUTO 0.2 mg/dL (0.0-2.0); WBC, URINE AUTO 0 /HPF (0-3)
== END ==
LOC: M SMT 13:26
DX: R31.9 Hematuria, unspecified (principal)
CPT/HCPCS: 81001

== ENCOUNTER → 2017-11-17 | Outpatient (CLI) | payer BC, OTHER ==
[2017-11-17 09:42] LABS: PROSTATIC SPECIFIC AG MONITOR < 0.01 NG/ML (< 4.0)
== END ==
LOC: M LAB 08:37
DX: C61 Malignant neoplasm of prostate (principal)
CPT/HCPCS: 84153

== ENCOUNTER → 2017-11-24 | Outpatient (CLI) | payer BC, OTHER | LOC: M ONCR 09:23 | DX: C61 Malignant neoplasm of prostate (principal); R32 Unspecified urinary incontinence | CPT/HCPCS: G0463 ==

== ENCOUNTER → 2017-12-13 | Outpatient (REF) | payer BC, OTHER | LOC: M LAB REF 17:49 | DX: R05 Cough (principal) | CPT/HCPCS: 87633 ==

== ENCOUNTER 2017-12-23 15:15 | Emergency (ER) | payer BC, OTHER | END 2017-12-23 17:21 | disposition home or self-care (01) | LOC: M ED 15:15 | DX: S20.211A Contusion of right front wall of thorax, initial encounter (principal); W10.8XXA Fall (on) (from) other stairs and steps, initial encounter; Y92.018 Other place in single-family (private) house as the place of occurrence of the external cause; I10 Essential (primary) hypertension; I25.10 Atherosclerotic heart disease of native coronary artery without angina pectoris; K21.9 Gastro-esophageal reflux disease without esophagitis; E78.9 Disorder of lipoprotein metabolism, unspecified; G47.33 Obstructive sleep apnea (adult) (pediatric); Z79.899 Other long term (current) drug therapy; Z79.01 Long term (current) use of anticoagulants | CPT/HCPCS: 71101 ==

== ENCOUNTER → 2018-01-28 | Outpatient (REF) | payer BC, OTHER ==
[2018-01-28 14:59] LABS: DIGOXIN LEVEL 0.6 NG/ML (0.5-2.0)
== END ==
LOC: M LAB REF 13:39
DX: I48.0 Paroxysmal atrial fibrillation (principal)
CPT/HCPCS: 80162

== ENCOUNTER 2018-02-12 10:31 | Emergency (ER) | payer BC, OTHER ==
[2018-02-12] MEDS: ASPIRIN 81 MG CHEW TABLET PO (11:00)
[2018-02-12 11:11] LABS: BASO % 0.4 % (0.0-1.0); EOS # 0.1 10^3/uL (0.0-0.50); EOS % 1.3 % (0.0-3.0); HEMATOCRIT 38.2 % (42.0-52.0); HEMOGLOBIN 13.1 g/dl (13.5-17.5); IMMATURE GRANULOCYTE % 0.2 % (0-3.0); LYMPH # 0.8 10^3/uL (1.5-4.5); MEAN CORPUSCULAR HEMOGLOBIN 27.9 pg (27.0-33.0); MEAN CORPUSCULAR HGB CONC 34.3 g/dl (32.0-36.5); MEAN CORPUSCULAR VOLUME 81.3 fl (80.0-96.0); MONO # 0.6 10^3/uL (0.0-0.8); MONO % 11.7 % (0.0-5.0); NEUTROPHILS # 3.3 10^3/uL (1.8-7.7); NEUTROPHILS % 70.4 % (36.0-66.0); PLATELET COUNT, AUTOMATED 219 10^3/uL (150-450); RED CELL DISTRIBUTION WIDTH 13.9 % (11.5-14.5); WHITE BLOOD COUNT 4.7 10^3/uL (4.0-10.0)
[2018-02-12 11:22] LABS: ALBUMIN 3.4 GM/DL (3.2-5.2); ALKALINE PHOSPHATASE 44 U/L (45-117); ALT/SGPT 39 U/L (12-78); ANION GAP 6 MEQ/L (8-16); AST/SGOT 28 U/L (7-37); BILIRUBIN,DIRECT 0.2 MG/DL (0.0-0.2); BILIRUBIN,TOTAL 0.6 MG/DL (0.2-1.0); BLOOD UREA NITROGEN 20 MG/DL (7-18); CALCIUM LEVEL 8.5 MG/DL (8.8-10.2); CARBON DIOXIDE LEVEL 26 MEQ/L (21-32); CHLORIDE LEVEL 109 MEQ/L (98-107); CPK CREATINE PHOSPHOKINASE 87 U/L (39-308); CREATININE FOR GFR 0.78 MG/DL (0.70-1.30); GLOMERULAR FILTRATION RATE > 60.0 (>42); GLUCOSE, FASTING 125 MG/DL (70-100); LIPASE 165 U/L (73-393); POTASSIUM SERUM 3.7 MEQ/L (3.5-5.1); SODIUM LEVEL 141 MEQ/L (136-145); TOTAL PROTEIN 6.8 GM/DL (6.4-8.2); TROPONIN I < 0.02 NG/ML (< 0.10)
[2018-02-12 11:32] LABS: CK-MB VALUE MASS 4.6 NG/ML (<3.6); DIGOXIN LEVEL 0.4 NG/ML (0.5-2.0); MB/CK RELATIVE INDEX 5.28 (< OR =4); NT-PRO BNP 24 PG/ML (<125)
[2018-02-12] MEDS ORDERED: ISOVUE-370 76% 100ML VIAL (Q9967) As Ordered (11:49)
[2018-02-12 16:44] LABS: CK-MB VALUE MASS 3.9 NG/ML (<3.6); CPK CREATINE PHOSPHOKINASE 93 U/L (39-308); MB/CK RELATIVE INDEX 4.19 (< OR =4); TROPONIN I < 0.02 NG/ML (< 0.10)
[2018-02-12] MEDS ORDERED: KETOROLAC 30 MG/ML VIAL (J1885) As Ordered (17:37)
[2018-02-12] MEDS: KETOROLAC 30 MG/ML VIAL (J1885) IV (17:42)
== END 2018-02-12 18:20 | disposition home or self-care (01) ==
LOC: M ED 10:31
DX: R07.9 Chest pain, unspecified (principal); I10 Essential (primary) hypertension; E78.5 Hyperlipidemia, unspecified; G47.30 Sleep apnea, unspecified; Z79.01 Long term (current) use of anticoagulants; Z79.899 Other long term (current) drug therapy; Z86.79 Personal history of other diseases of the circulatory system; Z87.19 Personal history of other diseases of the digestive system; Z82.49 Family history of ischemic heart disease and other diseases of the circulatory system; Z98.890 Other specified postprocedural states
CPT/HCPCS: Q9967

== ENCOUNTER → 2018-02-24 | Outpatient (CLI) | payer BC, OTHER | LOC: M RAD 07:30 | DX: N28.1 Cyst of kidney, acquired (principal); K76.89 Other specified diseases of liver | CPT/HCPCS: 76700 ==

== ENCOUNTER 2018-04-27 09:30 | Emergency (ER) | payer BC, OTHER | END 2018-04-27 12:02 | disposition home or self-care (01) | LOC: M ED 09:30 | DX: M79.662 Pain in left lower leg (principal); Z96.652 Presence of left artificial knee joint; I10 Essential (primary) hypertension; E78.5 Hyperlipidemia, unspecified; K21.9 Gastro-esophageal reflux disease without esophagitis; Z79.01 Long term (current) use of anticoagulants; Z79.899 Other long term (current) drug therapy | CPT/HCPCS: 73564 ==

== ENCOUNTER 2018-05-25 06:54 | Outpatient (RCR) | payer BC, OTHER | END 2018-05-31 | LOC: M PT 06:54 | DX: Z47.89 Encounter for other orthopedic aftercare (principal); Z96.652 Presence of left artificial knee joint; M17.11 Unilateral primary osteoarthritis, right knee | CPT/HCPCS: 97110 ==

== ENCOUNTER 2018-06-02 07:42 | Outpatient (RCR) | payer BC, OTHER | END 2018-07-01 | LOC: M PT 07:42 | DX: Z47.89 Encounter for other orthopedic aftercare (principal); Z96.652 Presence of left artificial knee joint; M17.11 Unilateral primary osteoarthritis, right knee | CPT/HCPCS: 97010 ==

== ENCOUNTER 2018-07-05 07:24 | Outpatient (RCR) | payer BC, OTHER | END 2018-07-31 | LOC: M PT 07:24 | DX: Z47.1 Aftercare following joint replacement surgery (principal); Z96.652 Presence of left artificial knee joint; M17.10 Unilateral primary osteoarthritis, unspecified knee | CPT/HCPCS: 97010 ==

== ENCOUNTER → 2018-07-18 | Outpatient (CLI) | payer BC, OTHER ==
[2018-07-18 13:41] LABS: HEMATOCRIT 40.1 % (42.0-52.0); HEMOGLOBIN 13.5 g/dl (13.5-17.5); MEAN CORPUSCULAR HEMOGLOBIN 28.7 pg (27.0-33.0); MEAN CORPUSCULAR HGB CONC 33.7 g/dl (32.0-36.5); MEAN CORPUSCULAR VOLUME 85.1 fl (80.0-96.0); PLATELET COUNT, AUTOMATED 220 10^3/uL (150-450); RED BLOOD COUNT 4.71 10^6/uL (4.30-6.10); RED CELL DISTRIBUTION WIDTH 14.1 % (11.5-14.5); WHITE BLOOD COUNT 6.3 10^3/uL (4.0-10.0)
[2018-07-18 13:52] LABS: INR 1.25; PROTHROMBIN TIME 15.9 SECONDS (12.1-14.4)
[2018-07-18 14:10] LABS: ERYTHROCYTE SEDIMENTATION RATE 7 mm/hr (0-20)
[2018-07-18 15:36] LABS: ALBUMIN 3.6 GM/DL (3.2-5.2); ALBUMIN/GLOBULIN RATIO 1.24 (1.00-1.93); ALKALINE PHOSPHATASE 50 U/L (45-117); ALT/SGPT 41 U/L (12-78); ANION GAP 10 MEQ/L (8-16); AST/SGOT 28 U/L (7-37); BILIRUBIN,TOTAL 0.6 MG/DL (0.2-1.0); BLOOD UREA NITROGEN 26 MG/DL (7-18); CARBON DIOXIDE LEVEL 27 MEQ/L (21-32); CHLORIDE LEVEL 107 MEQ/L (98-107); CREATININE FOR GFR 0.83 MG/DL (0.70-1.30); GLOMERULAR FILTRATION RATE > 60.0 (>42); GLUCOSE, FASTING 110 MG/DL (70-100); SODIUM LEVEL 144 MEQ/L (136-145); TOTAL PROTEIN 6.5 GM/DL (6.4-8.2)
== END ==
LOC: M LAB 12:58
DX: Z01.818 Encounter for other preprocedural examination (principal)
CPT/HCPCS: 71046

== ENCOUNTER 2018-08-01 07:06 | Outpatient (RCR) | payer BC, OTHER | END 2018-08-31 | LOC: M PT 08-04 07:00 | DX: Z47.1 Aftercare following joint replacement surgery (principal); Z96.651 Presence of right artificial knee joint | CPT/HCPCS: 97010 ==

== ENCOUNTER 2018-08-08 07:44 | Inpatient (IN) | payer BC, MEDICARE, OTHER ==
[2018-08-08] MEDS ORDERED: LR 1,000 ML IV (08:00)
[2018-08-08] MEDS ORDERED: dexameTHASONE 4 MG/ML 1ML VIAL (J1100) As Ordered (08:17)
[2018-08-08] MEDS ORDERED: LIDOCAINE 2% INJ 100 MG/5 ML SDV (FOR ANES.) As Ordered (08:17)
[2018-08-08] MEDS ORDERED: PROPOFOL 200 MG/20 ML VIAL As Ordered ×6 (08:17→12:29)
[2018-08-08] MEDS ORDERED: ONDANSETRON 4MG/2ML VIAL (J2405) As Ordered (08:17)
[2018-08-08] MEDS: ACETAMINOPHEN 500 MG TAB PO (08:37)
[2018-08-08] MEDS ORDERED: MIDAZOLAM INJ 2 MG/2 ML VIAL (J2250) As Ordered ×2 (08:46→08:56)
[2018-08-08] MEDS ORDERED: fentaNYL 100 MCG/2 ML INJECTION (J3010) As Ordered ×3 (08:46→13:00)
[2018-08-08] MEDS: MIDAZOLAM INJ 2 MG/2 ML VIAL (J2250) IV ×2 (09:12→09:16)
[2018-08-08] MEDS: fentaNYL 100 MCG/2 ML INJECTION (J3010) IV ×6 (09:12→13:18)
[2018-08-08] MEDS: ceFAZolin 1GM INJ (J0690 PER 500MG) As Ordered ×2 (09:53→10:50)
[2018-08-08] MEDS ORDERED: dexameTHASONE 10 MG/1 ML VIAL PRES.FREE (J1100) (10:34)
[2018-08-08] MEDS ORDERED: ROPIvacaine 0.5% 30 ML INJECTION (J2795 PER 1MG) (10:34)
[2018-08-08] MEDS ORDERED: LIDOCAINE 1% MDV 20ML VIAL (10:34)
[2018-08-08] MEDS ORDERED: BUPIVACAINE/DEXTROSE 0.75% 2 ML AMP As Ordered (10:44)
[2018-08-08] MEDS ORDERED: KETOROLAC 60 MG/2 ML VIAL (J1885) As Ordered (11:13)
[2018-08-08] MEDS: TRANEXAMIC ACID 100 MG/ML 10ML VIAL As Ordered (11:25)
[2018-08-08] MEDS: EPINEPHrine INJ 1 MG/ML 1ML AMP As Ordered (11:25)
[2018-08-08] MEDS: BUPIVACAINE LIPOSOME/PF 1.3% 20 ML VIAL (13.3MG/ML)(EXPAREL) As Ordered (12:28)
[2018-08-08] MEDS: BUPIVACAINE HCL 0.25% 10 ML VIAL As Ordered (12:28)
[2018-08-08] MEDS ORDERED: MORPHINE 1MG/ML IN 0.9% NACL 100ML IV BAG As Ordered (12:38)
[2018-08-08] MEDS: LR 1,000 ML IV ×2 (13:15→13:30)
[2018-08-08] MEDS ORDERED: ACETAMINOPHEN TAB 650MG DOSE (2X325MG) PO (13:15)
[2018-08-08] MEDS: MORPHINE 1MG/ML IN 0.9% NACL 100ML IV BAG IV (13:25)
[2018-08-08 13:27] LABS: BASO % 0.2 % (0.0-1.0); EOS % 0.2 % (0.0-3.0); HEMATOCRIT 38.3 % (42.0-52.0); HEMOGLOBIN 12.6 g/dl (13.5-17.5); IMMATURE GRANULOCYTE % 1.3 % (0-3.0); LYMPH # 0.5 10^3/uL (1.5-4.5); LYMPH % 7.9 % (24.0-44.0); MEAN CORPUSCULAR HEMOGLOBIN 28.4 pg (27.0-33.0); MEAN CORPUSCULAR HGB CONC 32.9 g/dl (32.0-36.5); MEAN CORPUSCULAR VOLUME 86.3 fl (80.0-96.0); MONO # 0.1 10^3/uL (0.0-0.8); MONO % 1.9 % (0.0-5.0); NEUTROPHILS # 5.6 10^3/uL (1.8-7.7); NEUTROPHILS % 88.5 % (36.0-66.0); PLATELET COUNT, AUTOMATED 186 10^3/uL (150-450); RED BLOOD COUNT 4.44 10^6/uL (4.30-6.10); RED CELL DISTRIBUTION WIDTH 13.7 % (11.5-14.5); WHITE BLOOD COUNT 6.3 10^3/uL (4.0-10.0)
[2018-08-08] MEDS ORDERED: ONDANSETRON 4MG/2ML VIAL (J2405) IV ×2 (13:30)
[2018-08-08] MEDS ORDERED: EPIDURAL/PCA KEYS XX (13:30)
[2018-08-08] MEDS ORDERED: NALBUPHINE HCL 10 MG/ML AMP (J2300) IV (13:30)
[2018-08-08] MEDS ORDERED: diphenhydrAMINE INJ 50MG/ML VIAL (J1200) IV (13:30)
[2018-08-08] MEDS ORDERED: MORPHINE 10 MG/ML 1ML VIAL (J2270) IV (13:30)
[2018-08-08] MEDS ORDERED: NALOXONE INJ 0.4 MG/1 ML VIAL (J2310) IV (13:30)
[2018-08-08] MEDS: PERCOCET 5MG/325MG TAB PO ×2 (13:42→14:17)
[2018-08-08 13:51] LABS: ANION GAP 7 MEQ/L (8-16); BLOOD UREA NITROGEN 19 MG/DL (7-18); CALCIUM LEVEL 8.2 MG/DL (8.8-10.2); CARBON DIOXIDE LEVEL 26 MEQ/L (21-32); CHLORIDE LEVEL 108 MEQ/L (98-107); CREATININE FOR GFR 0.81 MG/DL (0.70-1.30); GLOMERULAR FILTRATION RATE > 60.0 (>42); GLUCOSE, FASTING 141 MG/DL (70-100); SODIUM LEVEL 141 MEQ/L (136-145)
[2018-08-08] MEDS: LISINOPRIL 10 MG TAB PO (21:00)
[2018-08-08] MEDS: PANTOPRAZOLE 40MG TAB (PROTONIX) PO (21:52)
[2018-08-08] MEDS: ATORVASTATIN 10 MG TAB PO (21:52)
[2018-08-09] MEDS: LR 1,000 ML IV (00:10)
[2018-08-09] MEDS ORDERED: ONDANSETRON 4 MG TAB (S0181) PO (06:45)
[2018-08-09] MEDS ORDERED: PERCOCET 5MG/325MG TAB PO (06:45)
[2018-08-09 07:00] LABS: HEMATOCRIT 32.8 % (42.0-52.0); HEMOGLOBIN 11.2 g/dl (13.5-17.5); MEAN CORPUSCULAR HEMOGLOBIN 28.4 pg (27.0-33.0); MEAN CORPUSCULAR HGB CONC 34.1 g/dl (32.0-36.5); MEAN CORPUSCULAR VOLUME 83.2 fl (80.0-96.0); PLATELET COUNT, AUTOMATED 198 10^3/uL (150-450); RED BLOOD COUNT 3.94 10^6/uL (4.30-6.10); RED CELL DISTRIBUTION WIDTH 13.8 % (11.5-14.5)
[2018-08-09] MEDS: MOM 30ML SUSPENSION UDC PO (08:11)
[2018-08-09] MEDS: MIRALAX *UNIT DOSE* 17GM PACKET PO (08:12)
[2018-08-09] MEDS: DIGOXIN 0.25 MG TAB PO (08:13)
[2018-08-09] MEDS: MULTIVITAMINS/MINERALS THERAP 1 TAB PO (08:13)
[2018-08-09] MEDS: SENOKOT S TAB PO ×2 (08:13→20:46)
[2018-08-09] MEDS: hydroCHLOROthiazide 12.5 MG CAPSULE PO (08:13)
[2018-08-09] MEDS: VITAMIN D 1,000 INTERNATIONAL UNITS TABLET PO (08:13)
[2018-08-09] MEDS: PERCOCET 5MG/325MG TAB PO ×4 (08:14→22:14)
[2018-08-09] MEDS ORDERED: RIVAROXABAN 10 MG TAB (XARELTO) PO (18:00)
[2018-08-09] MEDS: LISINOPRIL 10 MG TAB PO (20:46)
[2018-08-09] MEDS: ATORVASTATIN 10 MG TAB PO (20:46)
[2018-08-09] MEDS: PANTOPRAZOLE 40MG TAB (PROTONIX) PO (20:46)
[2018-08-09] MEDS: MORPHINE 15 MG SA TAB PO (20:48)
[2018-08-10] MEDS: PERCOCET 5MG/325MG TAB PO ×4 (03:31→18:04)
[2018-08-10 07:07] LABS: HEMATOCRIT 31.2 % (42.0-52.0); HEMOGLOBIN 10.5 g/dl (13.5-17.5); MEAN CORPUSCULAR HEMOGLOBIN 28.5 pg (27.0-33.0); MEAN CORPUSCULAR HGB CONC 33.7 g/dl (32.0-36.5); MEAN CORPUSCULAR VOLUME 84.6 fl (80.0-96.0); PLATELET COUNT, AUTOMATED 161 10^3/uL (150-450); RED BLOOD COUNT 3.69 10^6/uL (4.30-6.10); RED CELL DISTRIBUTION WIDTH 14.2 % (11.5-14.5); WHITE BLOOD COUNT 7.7 10^3/uL (4.0-10.0)
[2018-08-10] MEDS: MORPHINE 15 MG SA TAB PO ×2 (08:57→21:58)
[2018-08-10] MEDS: MULTIVITAMINS/MINERALS THERAP 1 TAB PO (09:33)
[2018-08-10] MEDS: MIRALAX *UNIT DOSE* 17GM PACKET PO (09:33)
[2018-08-10] MEDS: SENOKOT S TAB PO ×2 (09:33→21:57)
[2018-08-10] MEDS: MOM 30ML SUSPENSION UDC PO (09:33)
[2018-08-10] MEDS: DIGOXIN 0.25 MG TAB PO (09:34)
[2018-08-10] MEDS: hydroCHLOROthiazide 12.5 MG CAPSULE PO (09:34)
[2018-08-10] MEDS: APIXABAN 5 MG TAB (ELIQUIS) PO ×2 (09:34→21:53)
[2018-08-10] MEDS: VITAMIN D 1,000 INTERNATIONAL UNITS TABLET PO (09:35)
[2018-08-10] MEDS: LISINOPRIL 10 MG TAB PO (21:57)
[2018-08-10] MEDS: PANTOPRAZOLE 40MG TAB (PROTONIX) PO (21:57)
[2018-08-10] MEDS: ATORVASTATIN 10 MG TAB PO (21:58)
[2018-08-11] MEDS: PERCOCET 5MG/325MG TAB PO ×2 (06:14→10:51)
[2018-08-11 07:05] LABS: HEMATOCRIT 34.2 % (42.0-52.0); HEMOGLOBIN 11.4 g/dl (13.5-17.5); MEAN CORPUSCULAR HEMOGLOBIN 28.6 pg (27.0-33.0); MEAN CORPUSCULAR HGB CONC 33.3 g/dl (32.0-36.5); MEAN CORPUSCULAR VOLUME 85.7 fl (80.0-96.0); PLATELET COUNT, AUTOMATED 176 10^3/uL (150-450); RED BLOOD COUNT 3.99 10^6/uL (4.30-6.10); RED CELL DISTRIBUTION WIDTH 14.1 % (11.5-14.5); WHITE BLOOD COUNT 7.7 10^3/uL (4.0-10.0)
[2018-08-11] MEDS: MAGNESIUM CITRATE 300 ML BTL PO ×2 (09:00→13:24)
[2018-08-11] MEDS: MIRALAX *UNIT DOSE* 17GM PACKET PO (09:00)
[2018-08-11] MEDS: SENOKOT S TAB PO ×2 (09:02→20:58)
[2018-08-11] MEDS: VITAMIN D 1,000 INTERNATIONAL UNITS TABLET PO (09:03)
[2018-08-11] MEDS: MORPHINE 15 MG SA TAB PO ×2 (09:03→20:58)
[2018-08-11] MEDS: MULTIVITAMINS/MINERALS THERAP 1 TAB PO (09:03)
[2018-08-11] MEDS: hydroCHLOROthiazide 12.5 MG CAPSULE PO (09:03)
[2018-08-11] MEDS: APIXABAN 5 MG TAB (ELIQUIS) PO ×2 (09:03→20:58)
[2018-08-11] MEDS: DIGOXIN 0.25 MG TAB PO (09:04)
[2018-08-11] MEDS: MOM 30ML SUSPENSION UDC PO (17:52)
[2018-08-11] MEDS: DOCUSATE SODIUM 100 MG CAP PO (17:53)
[2018-08-11] MEDS: LISINOPRIL 10 MG TAB PO (20:57)
[2018-08-11] MEDS: ATORVASTATIN 10 MG TAB PO (20:57)
[2018-08-11] MEDS: PANTOPRAZOLE 40MG TAB (PROTONIX) PO (20:58)
[2018-08-11] MEDS: FLEET ENEMA PR (20:59)
[2018-08-12] MEDS: PERCOCET 5MG/325MG TAB PO ×2 (00:58→06:55)
[2018-08-12] MEDS: MOM 30ML SUSPENSION UDC PO (09:14)
[2018-08-12] MEDS: MULTIVITAMINS/MINERALS THERAP 1 TAB PO (09:14)
[2018-08-12] MEDS: MIRALAX *UNIT DOSE* 17GM PACKET PO (09:14)
[2018-08-12] MEDS: hydroCHLOROthiazide 12.5 MG CAPSULE PO (09:14)
[2018-08-12] MEDS: VITAMIN D 1,000 INTERNATIONAL UNITS TABLET PO (09:14)
[2018-08-12] MEDS: SENOKOT S TAB PO (09:14)
[2018-08-12] MEDS: APIXABAN 5 MG TAB (ELIQUIS) PO (09:15)
[2018-08-12] MEDS: MORPHINE 15 MG SA TAB PO (09:15)
[2018-08-12] MEDS: DIGOXIN 0.25 MG TAB PO (09:16)
== END 2018-08-12 10:20 | DRG 302 ==
LOC: M OR 07:44 → M MS5PR 14:40
PROC: 0SRC0J9 Replacement of Right Knee Joint with Synthetic Substitute, Cemented, Open Approach (ICD-10-PCS; principal; 2018-08-08 09:58)
DX: M17.11 Unilateral primary osteoarthritis, right knee (principal); E55.9 Vitamin D deficiency, unspecified; I11.9 Hypertensive heart disease without heart failure; I48.2 Chronic atrial fibrillation; K22.2 Esophageal obstruction; I35.0 Nonrheumatic aortic (valve) stenosis; D64.9 Anemia, unspecified; Z79.01 Long term (current) use of anticoagulants; Z79.899 Other long term (current) drug therapy; E78.5 Hyperlipidemia, unspecified; Z96.652 Presence of left artificial knee joint; I44.0 Atrioventricular block, first degree; G47.33 Obstructive sleep apnea (adult) (pediatric); K21.9 Gastro-esophageal reflux disease without esophagitis; Z85.46 Personal history of malignant neoplasm of prostate

== ENCOUNTER → 2018-08-17 | Outpatient (REF) | payer BC, MEDICARE, OTHER ==
[2018-08-17 09:36] LABS: HEMATOCRIT 37.5 % (42.0-52.0); HEMOGLOBIN 12.4 g/dl (13.5-17.5); MEAN CORPUSCULAR HEMOGLOBIN 28.6 pg (27.0-33.0); MEAN CORPUSCULAR HGB CONC 33.1 g/dl (32.0-36.5); MEAN CORPUSCULAR VOLUME 86.6 fl (80.0-96.0); PLATELET COUNT, AUTOMATED 369 10^3/uL (150-450); RED BLOOD COUNT 4.33 10^6/uL (4.30-6.10); RED CELL DISTRIBUTION WIDTH 13.5 % (11.5-14.5)
[2018-08-17 09:47] LABS: ANION GAP 6 MEQ/L (8-16); BLOOD UREA NITROGEN 23 MG/DL (7-18); CALCIUM LEVEL 8.7 MG/DL (8.8-10.2); CARBON DIOXIDE LEVEL 30 MEQ/L (21-32); CHLORIDE LEVEL 102 MEQ/L (98-107); CREATININE FOR GFR 0.83 MG/DL (0.70-1.30); GLOMERULAR FILTRATION RATE > 60.0 (>42); GLUCOSE, FASTING 116 MG/DL (70-100); POTASSIUM SERUM 4.3 MEQ/L (3.5-5.1); SODIUM LEVEL 138 MEQ/L (136-145)
== END ==
DX: Z96.659 Presence of unspecified artificial knee joint (principal); Z79.899 Other long term (current) drug therapy
CPT/HCPCS: 80048

== ENCOUNTER 2018-09-01 13:39 | Outpatient (RCR) | payer BC, OTHER | END 2018-09-30 | LOC: M PT 09-05 09:30 | DX: Z96.651 Presence of right artificial knee joint (principal) ==

== ENCOUNTER 2018-10-28 07:30 | Outpatient (RCR) | payer BC, OTHER ==
[~2018-10-28 07:30] MED LIST changes: +ACET1TAB55 PO; +COLA100C5 PO; +FISH120016 PO; +FISH7.5C PO; +LISI-672 PO; -LISI30TA4 PO; +MORP15TASA PO; +NORCOTAB PO; -NS 1,000 ML IV ONE; +PERC5TAB12 PO; +REST0.05 OU; +STOOL SOFTENER
== END 2018-10-31 ==
LOC: M PT 07:30
PROVIDERS: ATTEND Orthopaedic Surgery
DX: Z98.890 Other specified postprocedural states (principal); Z96.651 Presence of right artificial knee joint

== ENCOUNTER 2018-11-04 08:00 | Outpatient (RCR) | payer BC, OTHER | END 2018-12-01 | LOC: M PT 08:00 | PROVIDERS: ATTEND Orthopaedic Surgery | DX: Z47.1 Aftercare following joint replacement surgery (principal); Z96.651 Presence of right artificial knee joint ==

== ENCOUNTER → 2018-11-17 | Outpatient (CLI) | payer BC, OTHER | LOC: M LAB 11:27 | PROVIDERS: ATTEND Radiology Radiation Oncology | DX: C61 Malignant neoplasm of prostate (principal) ==

== ENCOUNTER → 2018-11-23 | Outpatient (CLI) | payer BC, OTHER ==
--- NOTE | 2018-11-23 14:13 | RADONC ---
RADIATION ONCOLOGY FOLLOWUP NOTE DATE: 11/23/2018 CHART NUMBER: [id number] DIAGNOSIS: Prostate cancer. STAGE: III, T3N0M0. ECOG PERFORMANCE STATUS: 0. FOLLOWUP NOTE: Mr. 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 The patient presents today reporting that he is doing quite well with no complaints at this time related to his radiation therapy or disease. He has no urinary or bowel difficulties and no bone pain. The patient's review of systems is positive for physical limitations secondary to his age and hip difficulties. It is otherwise noncontributory. He denies nausea, vomiting, fevers, chills, night sweats, diplopia, headaches, anxiety or depression, anorexia, weight loss, visual disturbances, chest pain, urinary or bowel difficulties, bone pain, or neurological problems. PHYSICAL EXAMINATION: The patient is a well-developed, well-nourished male in no acute distress. HEENT exam is normocephalic, atraumatic. Extraocular movements are intact. There is no palpable cervical, supraclavicular, infraclavicular, axillary, or inguinal lymphadenopathy present. Lungs are clear to auscultation and percussion. Heart has a regular rate and rhythm. Abdomen is benign with no hepatosplenomegaly, masses, or tenderness. Rectal examination reveals a normal anal sphincter tone. His prostate is smooth with no evidence of nodularity. Skeletal examination reveals no tenderness to pressure or percussion of the bony skeleton. Extremities reveal no clubbing, cyanosis, or edema. Neurologic exam is grossly intact as is the remainder of the physical examination. ASSESSMENT: The patient is clinically JUAN CARLOS at this time. His most recent PSA done on 11/17/2017 was less than 0.01. It has been stable for many years. In light of this I am discharging this patient from our followup except on an as needed basis. He will continue his close followup with his primary care physician. The patient has my office number as well as cell phone number and we are available to him at anytime if he has any questions or if we could be of any assistance whatsoever. cc: MD Anam Ford Jr, MD Po Lam, MD
== END ==
LOC: M ONCR 08:59
PROVIDERS: ATTEND Radiology Radiation Oncology
DX: C61 Malignant neoplasm of prostate (principal)

== ENCOUNTER → 2018-11-29 | Outpatient (CLI) | payer BC, OTHER ==
[2018-11-29 10:41] LABS: BASO % 0.2 % (0.0-1.0); EOS % 0.5 % (0.0-3.0); HEMATOCRIT 37.8 % (42.0-52.0); HEMOGLOBIN 12.3 g/dl (13.5-17.5); LYMPH # 0.8 10^3/uL (1.5-4.5); LYMPH % 13.4 % (24.0-44.0); MEAN CORPUSCULAR HEMOGLOBIN 27.3 pg (27.0-33.0); MEAN CORPUSCULAR HGB CONC 32.5 g/dl (32.0-36.5); MONO # 0.5 10^3/uL (0.0-0.8); MONO % 8.8 % (0.0-5.0); NEUTROPHILS # 4.6 10^3/uL (1.8-7.7); NEUTROPHILS % 76.9 % (36.0-66.0); PLATELET COUNT, AUTOMATED 241 10^3/uL (150-450); WHITE BLOOD COUNT 5.9 10^3/uL (4.0-10.0)
[2018-11-29 11:06] LABS: ERYTHROCYTE SEDIMENTATION RATE 11 mm/hr (0-20)
== END ==
LOC: M LAB 10:05
PROVIDERS: ATTEND Orthopaedic Surgery
DX: Z96.652 Presence of left artificial knee joint (principal)

== ENCOUNTER → 2018-12-12 | Outpatient (CLI) | payer BC, OTHER ==
--- NOTE | 2018-12-12 13:31 | REP ---
Three-phase radionuclide bone scan of the knees bilaterally: The patient complains of left knee pain for the past few months. The patient had left knee arthroplasty 11 years ago. The patient had right knee arthroplasty in August 2018. Additionally, the patient has a history of prostate carcinoma in May 2008 treated with prostatectomy and radiation. After intravenous administration of MDP radiolabeled with 22 mCi of technetium 99m imaging is performed initially during the vascular phase posteriorly and anteriorly followed by soft tissue imaging followed by skeletal imaging of the knees bilaterally. On the skeletal phase there is diffuse increased uptake in the left tibial plateau compared to the right. There is increased uptake in the right patella compared to the left. On the soft tissue phase increased uptake in the left tibial plateau greater than the right is also identified. The vascular phase increased uptake in the left tibial plateau greater than the right is identified. Impression: There is increased uptake in the left tibial plateau compared to the right on all phases of the study. This is nonspecific and could be secondary to trauma/fracture or infection. Evidence for loosening is usually seen at the periphery of the prosthesis, however, loosening cannot be entirely discounted. The uptake in the right patella is identified on the skeletal phase is slightly apparent soft tissue phase and barely visible on the vascular phase. The diagnostic considerations for the right talar uptake are similar to those of the left tibial plateau. Electronically Signed by Christos Hernandez MD 12/12/2018 01:22 P
== END ==
LOC: M RAD 09:21
PROVIDERS: ATTEND Orthopaedic Surgery
DX: Z96.652 Presence of left artificial knee joint (principal); M25.562 Pain in left knee; Z85.46 Personal history of malignant neoplasm of prostate; Z92.3 Personal history of irradiation
CPT/HCPCS: 78315; A9503

== ENCOUNTER → 2018-12-13 | Outpatient (REF) | payer BC, OTHER | LOC: M LAB REF 12:41 | PROVIDERS: ATTEND Internal Medicine | DX: I48.2 Chronic atrial fibrillation (principal) ==

== ENCOUNTER → 2019-01-02 | Outpatient (REF) | payer BC, OTHER ==
[2019-01-02 19:02] LABS: APPEARANCE, URINE CLOUDY (CLEAR); BACTERIA, URINE AUTO 1+ (NEGATIVE); BILIRUBIN, URINE AUTO NEGATIVE (NEGATIVE); BLOOD, URINE BLOOD NEGATIVE (NEGATIVE); COLOR, URINE YELLOW (YELLOW); GLUCOSE, URINE (UA) AUTO NEGATIVE (NEGATIVE); KETONE, URINE AUTO NEGATIVE (NEGATIVE); LEUKOCYTE ESTERASE, URINE AUTO 3+ (NEGATIVE); NITRITE, URINE AUTO NEGATIVE (NEGATIVE); PROTEIN, URINE AUTO 1+ mg/dL (NEGATIVE); RBC, URINE AUTO 7 /HPF (0-3); SPECIFIC GRAVITY URINE AUTO 1.014 (1.002-1.035); SQUAMOUS EPITHELIAL CELL UR AU 0 /HPF (0-6); UROBILINOGEN, URINE AUTO 0.2 mg/dL (0.0-2.0); WBC, URINE AUTO 183 /HPF (0-3)
== END ==
LOC: M SMT 17:25
PROVIDERS: ATTEND Nurse Practitioner Women's Health
DX: R31.0 Gross hematuria (principal)

== ENCOUNTER → 2019-01-16 | Outpatient (REF) | payer BC, OTHER | LOC: M SMT 14:42 | PROVIDERS: ATTEND Nurse Practitioner Women's Health | DX: N39.0 Urinary tract infection, site not specified (principal) ==

== ENCOUNTER → 2019-02-10 | Outpatient (CLI) | payer BC, OTHER ==
[~2019-02-10] MED LIST changes: +HYDR-3715 PO; -NORC1TAB4 PO; +NORC1TAB7 PO; -NORCOTAB PO
[2019-02-10 09:58] LABS: BASO % 0.1 % (0.0-1.0); EOS # 0.1 10^3/uL (0.0-0.50); EOS % 0.8 % (0.0-3.0); HEMATOCRIT 35.8 % (42.0-52.0); LYMPH # 0.7 10^3/uL (1.5-4.5); LYMPH % 9.4 % (24.0-44.0); MEAN CORPUSCULAR HGB CONC 33.5 g/dl (32.0-36.5); MEAN CORPUSCULAR VOLUME 83.6 fl (80.0-96.0); MONO # 0.8 10^3/uL (0.0-0.8); MONO % 11.1 % (0.0-5.0); NEUTROPHILS # 5.5 10^3/uL (1.8-7.7); PLATELET COUNT, AUTOMATED 208 10^3/uL (150-450); RED BLOOD COUNT 4.28 10^6/uL (4.30-6.10); WHITE BLOOD COUNT 7.1 10^3/uL (4.0-10.0)
[2019-02-10 10:23] LABS: ALBUMIN 3.6 GM/DL (3.2-5.2); ALT/SGPT 31 U/L (12-78); BILIRUBIN,TOTAL 0.8 MG/DL (0.2-1.0); BLOOD UREA NITROGEN 23 MG/DL (7-18); C REACTIVE PROTEIN QUANTITATIV 0.92 MG/DL (0.00-0.30); CALCIUM LEVEL 8.6 MG/DL (8.8-10.2); CARBON DIOXIDE LEVEL 29 MEQ/L (21-32); CHLORIDE LEVEL 108 MEQ/L (98-107); FERRITIN 76 NG/ML (26-388); GLOMERULAR FILTRATION RATE > 60.0 (>42); GLUCOSE, FASTING 106 MG/DL (70-100); IRON (FE) 45 UG/DL (65-175); POTASSIUM SERUM 4.1 MEQ/L (3.5-5.1); SODIUM LEVEL 140 MEQ/L (136-145); TOTAL PROTEIN 6.1 GM/DL (6.4-8.2)
[2019-02-10 10:27] LABS: ERYTHROCYTE SEDIMENTATION RATE 10 mm/hr (0-20)
[2019-02-10 10:35] LABS: VITAMIN B12 LEVEL 461 PG/ML (247-911)
[2019-02-10 10:46] LABS: HEMOGLOBIN A1c 6.1 %
--- NOTE | 2019-02-10 11:38 | REP ---
CHEST X-RAY: Two views. HISTORY: Shortness of breath. COMPARISON CHEST X-RAY: July 18, 2018. FINDINGS: The lungs are somewhat hyperinflated consistent with some degree of COPD. This is unchanged. Pleural angles are sharp. No infiltrate is seen. There is no evidence of pleural effusion. Heart is near the upper range of normal in size. Cardiothoracic ratio is 48.5%. The thoracic aorta is slightly tortuous as before. The pulmonary vasculature is not increased. IMPRESSION: Hyperinflation consistent with some degree of COPD. Borderline heart size. Electronically Signed by Miek Moraes MD 02/10/2019 08:00 P
--- NOTE | 2019-02-10 16:59 | ECGEPIP ---
Stationary ECG Study [facility] Test Date: 2019-02-10 Pat Name: MARTIN HILLS Department: Room: - Gender: M Stamp Collector: : 1945 Requested By: Gordon Strickland Order Number: [id number] Reading MD: Cain Jensen Measurements Intervals [place] Rate: 63 P: 99 UT: 184 QRS: -25 QRSD: 106 T: 180 QT: 378 QTc: 388 Interpretive Statements Normal sinus rhythm Left axis deviation Incomplete RBBB Anterolateral ST/T-wave abnormalities No significant change from 07/18/18. Electronically Signed On 02-10-2019 16:59:21 EDT by Cain Jensen
== END ==
LOC: M LAB 09:07
PROVIDERS: ATTEND Orthopaedic Surgery
DX: Z01.818 Encounter for other preprocedural examination (principal); R91.8 Other nonspecific abnormal finding of lung field; I45.10 Unspecified right bundle-branch block; R94.31 Abnormal electrocardiogram [ECG] [EKG]; M25.562 Pain in left knee; M17.12 Unilateral primary osteoarthritis, left knee; D64.9 Anemia, unspecified; E11.9 Type 2 diabetes mellitus without complications; R06.02 Shortness of breath

== ENCOUNTER 2019-02-17 08:09 | Outpatient (RCR) | payer BC, OTHER | END 2019-02-28 | LOC: M PT 08:09 | PROVIDERS: ATTEND Orthopaedic Surgery | DX: M17.12 Unilateral primary osteoarthritis, left knee (principal) ==

== ENCOUNTER → 2019-02-20 | Outpatient (CLI) | payer BC, OTHER | LOC: M LAB 11:56 | PROVIDERS: ATTEND Internal Medicine | DX: D64.9 Anemia, unspecified (principal) ==

== ENCOUNTER 2019-03-03 07:51 | Outpatient (CLI) | payer BC, OTHER ==
[~2019-03-03] VITALS: Ht 177.8 cm; Wt 121.2 kg
[2019-03-03] VITALS (8 sets, daily range): BP systolic 107–143; BP diastolic 56–64
[2019-03-03] MEDS ORDERED: IRON SUCROSE 25 MG in NS 50 ML IV ONE (08:30)
[2019-03-03] MEDS ORDERED: IRON SUCROSE 475 MG in NS 250 ML IV ONE (09:15)
== END 2019-03-03 13:45 | disposition home or self-care (01) ==
LOC: M INFU 07:51
PROVIDERS: ATTEND Internal Medicine
DX: D50.9 Iron deficiency anemia, unspecified (principal)
CPT/HCPCS: 96365; 96366; J1756

== ENCOUNTER → 2019-03-06 | Outpatient (CLI) | payer BC, OTHER ==
[2019-03-06 12:41] LABS: BASO % 0.3 % (0.0-1.0); EOS # 0.1 10^3/uL (0.0-0.50); HEMATOCRIT 37.4 % (42.0-52.0); HEMOGLOBIN 12.4 g/dl (13.5-17.5); LYMPH # 0.8 10^3/uL (1.5-4.5); LYMPH % 13.9 % (24.0-44.0); MEAN CORPUSCULAR HEMOGLOBIN 27.6 pg (27.0-33.0); MEAN CORPUSCULAR HGB CONC 33.2 g/dl (32.0-36.5); MEAN CORPUSCULAR VOLUME 83.3 fl (80.0-96.0); MONO # 0.7 10^3/uL (0.0-0.8); MONO % 12.7 % (0.0-5.0); NEUTROPHILS # 4.2 10^3/uL (1.8-7.7); NEUTROPHILS % 71.8 % (36.0-66.0); PLATELET COUNT, AUTOMATED 222 10^3/uL (150-450); RED BLOOD COUNT 4.49 10^6/uL (4.30-6.10); WHITE BLOOD COUNT 5.8 10^3/uL (4.0-10.0)
[2019-03-06 13:14] LABS: PERCENT SATURATION 13.6 % (19.7-50.0)
== END ==
LOC: M LAB 11:24
PROVIDERS: ATTEND Internal Medicine
DX: D50.9 Iron deficiency anemia, unspecified (principal)

== ENCOUNTER → 2019-03-09 | Outpatient (REF) | payer BC, OTHER | LOC: M LAB REF 12:31 | PROVIDERS: ATTEND Internal Medicine | DX: I48.0 Paroxysmal atrial fibrillation (principal) ==

== ENCOUNTER 2019-03-14 10:19 | Outpatient (CLI) | payer BC, OTHER ==
[~2019-03-14] VITALS: Ht 182.9 cm; Wt 116.5 kg
[2019-03-14 10:40] VITALS: BP 131/60
[2019-03-14] MEDS ORDERED: IRON SUCROSE 25 MG in NS 50 ML IV ONE (11:00)
[2019-03-14 11:20] VITALS: BP 136/71
[2019-03-14] MEDS ORDERED: IRON SUCROSE 475 MG in NS 250 ML IV ONE (11:45)
[2019-03-14 12:15] VITALS: BP 116/55
[2019-03-14 13:15] VITALS: BP 109/56
[2019-03-14 15:13] VITALS: BP 115/56
[2019-03-14 15:45] VITALS: BP 127/68
== END 2019-03-14 15:45 | disposition home or self-care (01) ==
LOC: M INFU 10:19
PROVIDERS: ATTEND Internal Medicine
DX: D50.9 Iron deficiency anemia, unspecified (principal)
CPT/HCPCS: 96365; 96366; J1756

== ENCOUNTER → 2019-03-22 | Outpatient (REF) | payer BC, OTHER ==
[2019-03-22 13:41] LABS: APPEARANCE, URINE MANUAL TURBID (CLEAR); COLOR, URINE MANUAL RED (YELLOW); GLUCOSE, URINE (UA) MANUAL OBSCURED mg/dL (NEGATIVE); PH,URINE MAN OBSCURED UNITS (5.0 - 7.0); PROTEIN, URINE MANUAL OBSCURED mg/dL (NEGATIVE)
[2019-03-22 13:42] LABS: BILIRUBIN, URINE MANUAL OBSCURED (NEGATIVE); BLOOD URINE MANUAL POSITIVE (NEGATIVE); KETONE, URINE MANUAL OBSCURED mg/dL (NEGATIVE); LEUKOCYTE ESTERASE, URINE MAN OBSCURED (NEGATIVE); NITRITE, URINE MANUAL OBSCURED (NEGATIVE); SPECIFIC GRAVITY,URINE MANUAL 1.025 (1.002-1.035); UROBILINOGEN, URINE MANUAL OBSCURED mg/dl (NORMAL)
[2019-03-22 13:43] LABS: RBC, URINE TNTC /hpf (0-3)
[2019-03-22 13:48] LABS: BACTERIA, URINE SMALL AMOUNT; HYALINE CAST, URINE NONE SEEN /lpf (0-1); SQUAMOUS EPITHELIAL CELL URINE NONE SEEN /hpf (SMALL AMT); WBC, URINE 0-1 /hpf (0-3)
== END ==
LOC: M SMT 13:21
PROVIDERS: ATTEND Nurse Practitioner Women's Health
DX: R31.0 Gross hematuria (principal)

== ENCOUNTER → 2019-03-24 | Outpatient (CLI) | payer BC, OTHER ==
[~2019-03-24] MED LIST changes: +ISOVUE-370 76% 100ML VIAL (Q9967) As Ordered ONE
[2019-03-24 14:56] LABS: BLOOD UREA NITROGEN 21 MG/DL (7-18); CALCIUM LEVEL 8.8 MG/DL (8.8-10.2); CARBON DIOXIDE LEVEL 27 MEQ/L (21-32); CHLORIDE LEVEL 106 MEQ/L (98-107); CREATININE FOR GFR 0.86 MG/DL (0.70-1.30); GLOMERULAR FILTRATION RATE > 60.0 (>42); GLUCOSE, FASTING 85 MG/DL (70-100); POTASSIUM SERUM 3.9 MEQ/L (3.5-5.1); SODIUM LEVEL 140 MEQ/L (136-145)
--- NOTE | 2019-03-24 16:19 | REP ---
Clinical: Hematuria. Comparison: 03/01/2008 Technique: Axial precontrast, contrast enhanced, and delayed images of the abdomen and pelvis using 100 ml Isovue 370 intravenous contrast material with coronal and sagittal re-formations as well as 3-D CT urogram. Findings: Evaluation of the urinary tract system demonstrates bilateral benign simple renal cysts (left greater than right) including multiple peripelvic cysts and mild chronic-appearing perinephric stranding. No hydroureteronephrosis, nephroureterolithiasis, or mass lesion. Liver demonstrates multiple hypodensities which remain stable on delayed images and may represent cysts which have increased in size when compared to 2007. Spleen, pancreas, gallbladder, and bilateral adrenal glands are normal. The enteric system is without obstruction or acute inflammatory process. Pelvis demonstrates partially collapsed normal bladder and findings to suggest prior prostatectomy. Lung bases demonstrate chronic fibro atelectatic changes and mild bronchiectasis. Impression: 1. Urinary tract system demonstrates bilateral cysts (left greater than right) without further significant abnormalities appreciated. 2. Multiple suspected hepatic cysts up to 3 cm diameter. Electronically Signed by Severino Silveira MD 03/24/2019 04:11 P
== END ==
LOC: M RAD 14:26
PROVIDERS: ATTEND Nurse Practitioner Women's Health
DX: R31.0 Gross hematuria (principal); N28.1 Cyst of kidney, acquired; J47.9 Bronchiectasis, uncomplicated
CPT/HCPCS: 36415; 74178; 80048; Q9967

== ENCOUNTER 2019-04-27 12:27 | Outpatient (RCR) | payer BC, OTHER ==
[~2019-04-27 12:27] MED LIST changes: -ISOVUE-370 76% 100ML VIAL (Q9967) As Ordered ONE
== END 2019-04-30 ==
LOC: M PT 12:27
PROVIDERS: ATTEND Internal Medicine
DX: Z47.1 Aftercare following joint replacement surgery (principal)

== ENCOUNTER 2019-05-29 07:27 | Outpatient (RCR) | payer BC, OTHER | END 2019-05-31 | LOC: M PT 07:27 | PROVIDERS: ATTEND Internal Medicine | DX: Z47.89 Encounter for other orthopedic aftercare (principal); Z98.890 Other specified postprocedural states; M25.562 Pain in left knee ==

== ENCOUNTER 2019-06-30 07:30 | Outpatient (RCR) | payer BC, OTHER ==
[2019-07-01] MEDS ORDERED: GLUCTAB31 PO (21:31)
[2019-07-01] MEDS ORDERED: TYLE650T35 PO (21:31)
[2019-07-01] MEDS ORDERED: PROBCAP14 PO (21:31)
== END 2019-07-01 ==
LOC: M PT 07:30
PROVIDERS: ATTEND Internal Medicine
DX: Z47.1 Aftercare following joint replacement surgery (principal); Z96.652 Presence of left artificial knee joint

== ENCOUNTER 2019-07-01 17:45 | Inpatient (IN) | payer BC, OTHER ==
[~2019-07-01] VITALS: Ht 180.3 cm; Wt 113.6 kg
[2019-07-01] MEDS ORDERED: NS 1,000 ML IV ONE (18:15)
[2019-07-01] MEDS ORDERED: ONDANSETRON 4MG/2ML VIAL (J2405) IV ONE ×2 (18:15→20:45)
[2019-07-01 18:46] LABS: BASO % 0.1 % (0.0-1.0); EOS % 0.1 % (0.0-3.0); HEMATOCRIT 40.5 % (42.0-52.0); LYMPH # 0.5 10^3/uL (1.5-4.5); MEAN CORPUSCULAR HEMOGLOBIN 28.6 pg (27.0-33.0); MEAN CORPUSCULAR HGB CONC 34.6 g/dl (32.0-36.5); MEAN CORPUSCULAR VOLUME 82.7 fl (80.0-96.0); MONO # 0.4 10^3/uL (0.0-0.8); NEUTROPHILS # 8.1 10^3/uL (1.8-7.7); NEUTROPHILS % 89.5 % (36.0-66.0); PLATELET COUNT, AUTOMATED 223 10^3/uL (150-450)
[2019-07-01 19:10] LABS: ALBUMIN 3.9 GM/DL (3.2-5.2); ALT/SGPT 27 U/L (12-78); BILIRUBIN,DIRECT 0.3 MG/DL (0.0-0.2); BILIRUBIN,TOTAL 0.9 MG/DL (0.2-1.0); BLOOD UREA NITROGEN 26 MG/DL (7-18); CALCIUM LEVEL 9.1 MG/DL (8.8-10.2); CARBON DIOXIDE LEVEL 25 MEQ/L (21-32); CHLORIDE LEVEL 105 MEQ/L (98-107); CREATININE FOR GFR 0.88 MG/DL (0.70-1.30); GLOMERULAR FILTRATION RATE > 60.0 (>42); GLUCOSE, FASTING 155 MG/DL (70-100); LIPASE 74 U/L (73-393); POTASSIUM SERUM 3.7 MEQ/L (3.5-5.1); SODIUM LEVEL 139 MEQ/L (136-145); TOTAL PROTEIN 6.7 GM/DL (6.4-8.2)
[2019-07-01] MEDS ORDERED: PROMETHAZINE INJ 25 MG/ML VIAL (J2550) IV ONE (19:15)
[2019-07-01 19:37] LABS: DIGOXIN LEVEL 0.6 NG/ML (0.5-2.0)
[2019-07-01] MEDS: ATORVASTATIN 10 MG TAB PO SCH (21:00)
[2019-07-01] MEDS: LISINOPRIL 10 MG TAB PO SCH (21:00)
[2019-07-01] MEDS ORDERED: GLUCTAB31 PO (21:31)
[2019-07-01] MEDS ORDERED: PROBCAP14 PO (21:31)
[2019-07-01] MEDS ORDERED: TYLE650T35 PO (21:31)
[2019-07-01] MEDS: DIGOXIN 0.25 MG TAB PO SCH (22:00)
--- NOTE | 2019-07-01 22:29 | HPEPDOC ---
General Date of Admission Jul 01, 2019 at 21:55 Date of Service: Jul 01, 2019 Chief Complaint The patient is a 74-year-old male admitted with a reason for visit of Gastroenteritis. Source: Patient Exam Limitations: No limitations Severity: Moderate History of Present Illness 74 year old male presented to the ED with intractable vomiting for 1 day unable to keep ever sips of water down along with dry hears and eructations and 2 episodes of diarrhea at home. the stools were initially semisolid large amount then became watery , there was no blood in it. The diarrhea started first in the morning with lower abdominal cramps and fullness and after he had the bowel movement the sensation went away. He then started vomiting. He vomiting all day long , had a send episode of diarrhea in the afternoon and continued to vomit so came to the ED for evaluation. He has not been able to eat anything in 24 hours. He also complained of subjectve fevers at home and chills. In the ED he received 2 doses of zofran and 1 dose phenargan , IVF . He was given a trial of oral fluids but he immediately threw it up. pateint is admitted for G astroenteritis and unable to tolerate any oral food Home Medications Scheduled Apixaban (Eliquis) 5 Mg Tab, 5 MG PO BID, (Reported) Ascorbic Acid (Vitamin C) 500 Mg Tab, 1,000 MG PO DAILY, (Reported) Atorvastatin Calcium (Atorvastatin Calcium) 10 Mg Tab, 10 MG PO QHS, (Reported) Cholecalciferol (Vitamin D3) (Vitamin D3) 1,000 Unit Tab, 1,000 UNIT PO DAILY, (Reported) Digoxin (Digoxin) 250 Mcg Tab, 250 MCG PO QHS, (Reported) Esomeprazole Magnesium (Nexium) 40 Mg Cap, 40 MG PO DAILY, (Reported) Glucosamine/MSM/Chondroitin A (Glucosamine Chondroit MSM Tab) 1 Each Tablet, 2 TAB PO DAILY, (Reported) Hydrochlorothiazide (Hydrochlorothiazide) 25 Mg Tab, 12.5 MG PO DAILY, (Reported) Lactobacillus Acidophilus (Probiotic) 1 Each Capsule, 1 CAP PO DAILY, (Reported) Lisinopril (Lisinopril) 30 Mg Tab, 30 MG PO QHS, (Reported) Multivitamins (Thera M Plus Tablet) 1 Tab Tab, 1 TAB PO DAILY, (Reported) Butler-3S/Dha/Epa/Fish Oil (Fish Oil EC 1,200 mg Softgel) 1 Cap Cap, 2 CAP PO QAM, (Reported) Scheduled PRN Acetaminophen (Tylenol Arthritis) 650 Mg Tablet.er, 1,300 MG PO BID PRN for PAIN, (Reported) Docusate Sodium (Colace) 100 Mg Cap, 100 MG PO DAILY PRN for CONSTIPATION, (Reported) Allergies Coded Allergies: No Known Allergies (Verified , 07/01/19) Past Medical History Medical History Atrial fibrillation Hypertension with hypertensive heart disease LVH. Hyperlipidemia Osteoarthritis. Obstructive sleep apnea, on CPAP. Aortic valve sclerosis. Colonic polyp. Reflux disease. Chronic anemia. Prostate cancer diagnosed in May 2018, status post surgery and radiation felt to be no evidence of disease. 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 Nonobstructive Schatzki's ring at the gastroesophageal junction - upper endoscopy November of 2012. Surgical History Prostatectomy Bilateral knee replacements. Pericardiocentesis 20 years ago left patellectomy 25 years ago. Family History Significant Family History: Cancer (Colon cancer maternal Aunt and uncle), Hypertension (mother), Other (Stroke in Father) Social History * Smoker: former Smoker (pipe in colleg) Alcohol: rarely Drugs: denies A-FIB/CHADSVASC A-FIB History Current/History of A-Fib/PAF?: Yes Current PO Anticoag Therapy: Yes Review of Systems Constitutional: Reports: Chills, Weakness, Fatigue Eyes: Denies: Pain, Vision change ENT: Denies: Head Aches, Ear Pain, Dysphagia Skin: Denies: Rash, Lesions, Breakdown Pulmonary: Reports: Cough; Denies: Dyspnea, Pleuritic Chest Pain Cardiovascular: Reports: Paroxysmal Noc. Dyspnea; Denies: Chest Pain, Palpitations, Orthopnea, Lt Headedness Gastrointestinal: Reports: Nausea, Vomiting, Diarrhea Genitourinary: Denies: Dysuria, Frequency, Incontinence, Retention Hematologic: Denies: Bruising, Bleeding Excessively Musculoskeletal: Denies: Neck Pain, Back Pain, Joint Pain, Muscle Pain, Spasms Physical Examination General Exam: Positive: Alert, Cooperative, No Acute Distress Eye Exam: Positive: PERRLA, Conjunctiva & lids normal, EOMI; Negative: Sclera icteric ENT Exam: Positive: Atraumatic, Pharynx Normal, Other ENT (mucous membranes dry) Neck Exam: Positive: Supple; Negative: JVD, thyromegaly Chest Exam: Positive: Clear to auscultation, Normal air movement Heart Exam: Positive: Rate Normal, Regular Rhythm, Normal S1, Normal S2; Negative: Murmurs, Rubs Abdomen Exam: Positive: BS Hypoactive, Soft; Negative: Tenderness, Hepatospenomegaly Extremity Exam: Positive: Normal pulses; Negative: Clubbing, Cyanosis, Edema Skin Exam: Positive: Nl turgor and temperature; Negative: Breakdown, Lesion Neuro Exam: Positive: Normal Speech, Normal Tone Vital Signs Vital Signs Date Time Temp Pulse Resp B/P (MAP) Pulse Ox O2 Delivery O2 Flow Rate FiO2 07/01/19 20:19 98.1 70 16 137/63 (87) 97 Room Air Laboratory Data Labs 24H Laboratory Tests 2 07/01/19 18:22: Immature Granulocyte % (Auto) 0.3, White Blood Count 9.0, Red Blood Count 4.90, Hemoglobin 14.0, Hematocrit 40.5L, Mean Corpuscular Volume 82.7, Mean Corpuscular Hemoglobin 28.6, Mean Corpuscular Hemoglobin Concent 34.6, Red Cell Distribution Width 13.4, Platelet Count 223, Neutrophils (%) (Auto) 89.5H, Lymphocytes (%) (Auto) 6.0L, Monocytes (%) (Auto) 4.0, Eosinophils (%) (Auto) 0.1, Basophils (%) (Auto) 0.1, Neutrophils # (Auto) 8.1H, Lymphocytes # (Auto) 0.5L, Monocytes # (Auto) 0.4, Eosinophils # (Auto) 0.0, Basophils # (Auto) 0.0, Nucleated Red Blood Cells % (auto) 0.0, Urine Color YULI, Urine Appearance CLEAR, Urine pH 5.0, Urine Specific [place] 1.030, Urine Protein 1+H, Urine Glucose (UA) 1+H, Urine Ketones 2+H, Urine Blood NEGATIVE, Urine Nitrite NEGATIVE, Urine Bilirubin NEGATIVE, Urine Urobilinogen 0.2, Urine Leukocyte Esterase NEGATIVE, Urine WBC (Auto) 1, Urine RBC (Auto) 3, Urine Hyaline Casts (Auto) 0, Urine Bacteria (Auto) NEGATIVE, Urine Squamous Epithelial Cells 0, Urine Mucus (Auto) MODERATE, Urine Sperm (Auto) , Anion Gap 9, Glomerular Filtration Rate > 60.0, Calcium Level 9.1, Aspartate Amino Transf (AST/SGOT) 20, Alanine Aminotransferase (ALT/SGPT) 27, Alkaline Phosphatase 47, Total Bilirubin 0.9, Direct Bilirubin 0.3H, Total Protein 6.7, Albumin 3.9, Albumin/Globulin Ratio 1.39, Lipase 74, Digoxin Level 0.6 CBC/BMP Laboratory Tests 07/01/19 18:22 Red Blood Count 4.90, Mean Corpuscular Volume 82.7, Mean Corpuscular Hemoglobin 28.6, Mean Corpuscular Hemoglobin Concent 34.6, Red Cell Distribution Width 13.4, Neutrophils (%) (Auto) 89.5 H, Lymphocytes (%) (Auto) 6.0 L, Monocytes (%) (Auto) 4.0, Eosinophils (%) (Auto) 0.1, Basophils (%) (Auto) 0.1, Neutrophils # (Auto) 8.1 H, Lymphocytes # (Auto) 0.5 L, Monocytes # (Auto) 0.4, Eosinophils # (Auto) 0.0, Basophils # (Auto) 0.0 Assessment/Plan 74 year old male presented to the ED with intractable vomiting for 1 day unable to keep ever sips of water down along with dry hears and eructations and 2 episodes of diarrhea at home. the stools were initially semisolid large amount then became watery , there was no blood in it. The diarrhea started first in the morning with lower abdominal cramps and fullness and after he had the bowel movement the sensation went away. He then started vomiting. He vomiting all day long , had a send episode of diarrhea in the afternoon and continued to vomit so came to the ED for evaluation. He has not been able to eat anything in 24 hours. In the ED he received 2 doses of zofran and 1 dose phenargan , IVF . He was given a trial of oral fluids but he immediately threw it up. Patient is admitted for Gastroenteritis and unable to tolerate any oral food. Gastroenteritis possibly viral benign abdominal exam so will not get a CT. If continues to have symptoms will consider getting CT abd pelvis tomorrow. will treat symptomatically with IVF, antiemetics. clear liquid diet advance diet as tolerated. Atrial fibrillation continue digoxin and eliquis Hypertension continue lisinopril from tomorrow Hyperlipidemia continue statin GERD continue PPI EVANS may use own CPAP Plan / VTE VTE Prophylaxis Ordered?: Yes ROBERT TERAN MD Jul 01, 2019 22:11
[2019-07-01 23:00] VITALS: BP 162/64
[2019-07-01] MEDS: D5W/0.9% SODIUM CHLORIDE 1,000 ML IV SCH (23:35)
[2019-07-02] MEDS: APIXABAN 5 MG TAB (ELIQUIS) PO SCH ×3 (00:28→21:55)
[2019-07-02] MEDS: PANTOPRAZOLE 40MG INJ (PROTONIX) (C9113) IV SCH ×2 (00:28→21:56)
[2019-07-02] MEDS: PROCHLORPERAZINE 10 MG/2 ML VIAL (J0780) IV PRN ×2 (00:28→10:29)
[2019-07-02] MEDS: ONDANSETRON 4MG/2ML VIAL (J2405) IV PRN ×2 (03:28→09:34)
[2019-07-02 06:00] VITALS: BP 134/64
[2019-07-02 07:10] LABS: ALBUMIN 3.5 GM/DL (3.2-5.2); ALT/SGPT 25 U/L (12-78); BILIRUBIN,TOTAL 0.7 MG/DL (0.2-1.0); BLOOD UREA NITROGEN 30 MG/DL (7-18); CALCIUM LEVEL 8.9 MG/DL (8.8-10.2); CARBON DIOXIDE LEVEL 26 MEQ/L (21-32); CHLORIDE LEVEL 108 MEQ/L (98-107); CREATININE FOR GFR 0.97 MG/DL (0.70-1.30); GLOMERULAR FILTRATION RATE > 60.0 (>42); GLUCOSE, FASTING 166 MG/DL (70-100); POTASSIUM SERUM 3.4 MEQ/L (3.5-5.1); SODIUM LEVEL 141 MEQ/L (136-145); TOTAL PROTEIN 6.4 GM/DL (6.4-8.2)
--- NOTE | 2019-07-02 07:18 | ECGEPIP ---
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 Order Number: [id number] Reading MD: Zee Lorenzo Measurements Intervals [place] Rate: 61 P: 60 DE: 215 QRS: -7 QRSD: 129 T: 13 QT: 409 QTc: 413 Interpretive Statements SINUS RHYTHM WITH MARKED SINUS ARRHYTHMIA WITH FIRST DEGREE AV BLOCK POSSIBLE RIGHT VENTRICULAR CONDUCTION DELAY NONSPECIFIC T-WAVE ABNORMALITY Electronically Signed on 07-02-2019 7:18:29 EDT by Zee Lorenzo
[2019-07-02] MEDS ORDERED: ENOXAPARIN 40 MG/0.4 ML SYRINGE (J1650) SC SCH (09:00)
[2019-07-02] MEDS: D5W/0.9% SODIUM CHLORIDE 1,000 ML IV SCH ×3 (09:35→23:54)
[2019-07-02] MEDS: GASTROGRAFIN SOLUTION 30ML PO SCH ×2 (10:30→10:39)
[2019-07-02] MEDS ORDERED: ISOVUE-370 76% 100ML VIAL (Q9967) As Ordered ONE (11:02)
--- NOTE | 2019-07-02 12:16 | REP ---
Clinical: Abdominal pain with nausea and vomiting. Technique: Axial contrast enhanced images from the lung bases to the pubic symphysis using 100 ml Isovue 370 intravenous contrast material with coronal and sagittal re-formations. Comparison: 03/24/2019. Findings: Lung bases demonstrate chronic interstitial changes with mild bronchiectasis and scarring (right greater than left). Liver demonstrates fatty infiltration with stable scattered hypodensities suggesting cysts measuring up to approximately 3.2 cm maximal diameter and unchanged. Spleen, pancreas, gallbladder, and bilateral adrenal glands are normal / stable. Kidneys demonstrate mild chronic perinephric stranding along with stable 2.8 cm exophytic left renal hypodensity consistent with cyst. Small bilateral peripelvic renal cysts are also suggested measuring up to approximately 1.2 cm in the left renal pelvis. The enteric system is without obstruction or acute inflammatory process. Colonic/sigmoid diverticula noted without acute diverticulitis. Pelvis demonstrates normal bladder and evidence for prior prostatectomy. Atherosclerotic changes to the aorta and vasculature without aneurysm or dissection. Musculoskeletal structures demonstrate degenerative changes without focal abnormality. Impression: 1. Chronic-appearing stable changes as described above including stable hepatic and renal hypodensities suggesting cysts. 2. No obvious acute abdominopelvic pathology appreciated. No ascites. No focal inflammatory stranding, no adenopathy. Electronically Signed by Severino Silveira MD 07/02/2019 12:08 P
[2019-07-02 14:00] VITALS: BP 130/63
[2019-07-02] MEDS: KCL 10MEQ/100ML SWI (KRUN) 10 MEQ in APPROPRIATE DILUENT 1 EA IV SCH ×2 (14:25→17:51)
[2019-07-02] MEDS ORDERED: SIMETHICONE 80 MG CHEW TAB PO PRN (15:00)
[2019-07-02] MEDS: ONDANSETRON 4MG/2ML VIAL (J2405) IV SCH ×3 (15:19→23:32)
--- NOTE | 2019-07-02 17:30 | IPNPDOC ---
Text Note Date of Service The patient was seen on 07/02/19. NOTE S: patient states unable to keep any po food or fluid down and still with intr actible N,V. He is requesting CT Scan. no fever. present in room. states no further diarrhea. no other ill contacts at home. States increased gas and belching. O: Vitals as below General: mild to moderate distress,AAOx3 HRRR LCTA Abdomen soft diffuse tenderness, no rebound, no guarding, no rigidity, increased bowel sounds. Ext: no edema CT ABD/PEL: 1. Chronic-appearing stable changes as described above including stable hepatic and renal hypodensities suggesting cysts. 2. No obvious acute abdominopelvic pathology appreciated. No ascites. No focal inflammatory stranding, no adenopathy. A/P: Gastroenteritis - possibly viral will treat symptomatically; scheduled and prn anti-emetics, clear liquids, IVF Hypokalemia due to N/V/Diarrhea - IV krun x 20meq and repeat in AM Atrial fibrillation -continue digoxin and eliquis Hypertension- restart home meds Hyperlipidemia - continue statin GERD - continue PPI EVANS - may use own CPAP Disposition - anticipate discharge in 36-48 hours once symptoms improve and tolerating oral food/fluids/meds VS,Fishbone, I+O VS, Fishbone, I+O Laboratory Tests 07/01/19 18:22 Red Blood Count 4.90, Mean Corpuscular Volume 82.7, Mean Corpuscular Hemoglobin 28.6, Mean Corpuscular Hemoglobin Concent 34.6, Red Cell Distribution Width 13.4, Neutrophils (%) (Auto) 89.5 H, Lymphocytes (%) (Auto) 6.0 L, Monocytes (%) (Auto) 4.0, Eosinophils (%) (Auto) 0.1, Basophils (%) (Auto) 0.1, Neutrophils # (Auto) 8.1 H, Lymphocytes # (Auto) 0.5 L, Monocytes # (Auto) 0.4, Eosinophils # (Auto) 0.0, Basophils # (Auto) 0.0 07/02/19 06:10 Calcium Level 8.9, Aspartate Amino Transf (AST/SGOT) 21, Alanine Aminotransferase (ALT/SGPT) 25, Alkaline Phosphatase 40 L, Total Bilirubin 0.7, Total Protein 6.4, Albumin 3.5 Vital Signs Date Time Temp Pulse Resp B/P (MAP) Pulse Ox O2 Delivery O2 Flow Rate FiO2 07/02/19 06:00 99.0 53 18 134/64 (87) 96 07/01/19 20:19 Room Air I&O- Last 24 Hours up to 6 AM 07/02/19 06:00 Intake Total 650 ml Output Total 0 ml Balance 650 ml NOEL OWENS DO Jul 02, 2019 13:03
[2019-07-02] MEDS: ATORVASTATIN 10 MG TAB PO SCH (21:00)
[2019-07-02] MEDS: DIGOXIN 0.25 MG TAB PO SCH (21:00)
[2019-07-02 21:51] VITALS: BP 170/74
[2019-07-02 22:00] VITALS: BP 147/60
[2019-07-02 23:31] VITALS: BP 170/75
[2019-07-02] MEDS: LISINOPRIL 10 MG TAB PO SCH (23:33)
[2019-07-03] MEDS: ONDANSETRON 4MG/2ML VIAL (J2405) IV SCH ×5 (03:39→18:13)
[2019-07-03 03:52] VITALS: BP 168/75
[2019-07-03 06:00] VITALS: BP 167/88
[2019-07-03] MEDS: APIXABAN 5 MG TAB (ELIQUIS) PO SCH ×2 (08:40→22:06)
[2019-07-03 08:42] LABS: BLOOD UREA NITROGEN 37 MG/DL (7-18); CALCIUM LEVEL 8.3 MG/DL (8.8-10.2); CARBON DIOXIDE LEVEL 26 MEQ/L (21-32); CHLORIDE LEVEL 110 MEQ/L (98-107); CREATININE FOR GFR 0.95 MG/DL (0.70-1.30); GLOMERULAR FILTRATION RATE > 60.0 (>42); GLUCOSE, FASTING 152 MG/DL (70-100); POTASSIUM SERUM 3.6 MEQ/L (3.5-5.1); SODIUM LEVEL 141 MEQ/L (136-145)
[2019-07-03] MEDS: KCL 20MEQ IN D5/0.45NS 1000ML 1,000 ML IV SCH ×2 (11:25→22:54)
--- NOTE | 2019-07-03 13:02 | IPN ---
DATE: 07/03/2019 "Rodolfo" is admitted with gastroenteritis. He still has persistent significant nausea. Head diarrhea as an outpatient. He has not had any since he arrived here. He does not feel much better than yesterday. He has been getting some IV Compazine and IV Zofran without significant improvement. VITALS: 116/88, pulse 44, respiratory rate 16, 98% Oxygen saturation. He is alert, conversant and no distress. No JVD. Lungs are clear. Rate is around 60. Abdomen is soft and nontender. No peripheral edema. LABS: Sodium 141, potassium 3.6. BUN 37 creatinine 0.9. IMPRESSION: 1. Gastroenteritis, probably viral. I have ordered GI panel. His potassium is low. I appreciate his IV fluid to include potassium. At this point he can not tolerate oral so he is not stable for discharge. Perhaps could go home tomorrow if his nausea improves and he is able to retain oral feedings. 2. Atrial fibrillation. Rate is a little low but that is his baseline. He is on Eliquis. 3. Hypertensive heart disease. He wanted to restart his hydrochlorothiazide. I told him that we are going to hold diuretics until he is better hydrated. Continue his Lisinopril.
[2019-07-03 14:00] VITALS: BP 182/81
[2019-07-03 14:05] VITALS: BP 160/64
[2019-07-03] MEDS: DIGOXIN 0.25 MG TAB PO SCH (21:00)
[2019-07-03 22:00] VITALS: BP 148/84
[2019-07-03] MEDS: PANTOPRAZOLE 40MG INJ (PROTONIX) (C9113) IV SCH (22:07)
[2019-07-03] MEDS: ACETAMINOPHEN TAB 650MG DOSE (2X325MG) PO PRN (23:02)
[2019-07-03] MEDS: ATORVASTATIN 10 MG TAB PO SCH (23:02)
[2019-07-03 23:08] VITALS: BP 166/78
[2019-07-03] MEDS: LISINOPRIL 10 MG TAB PO SCH (23:08)
[2019-07-04 06:00] VITALS: BP 158/72
[2019-07-04 07:18] LABS: BLOOD UREA NITROGEN 28 MG/DL (7-18); CALCIUM LEVEL 8.2 MG/DL (8.8-10.2); CARBON DIOXIDE LEVEL 24 MEQ/L (21-32); CHLORIDE LEVEL 109 MEQ/L (98-107); GLOMERULAR FILTRATION RATE > 60.0 (>42); GLUCOSE, FASTING 129 MG/DL (70-100); MAGNESIUM LEVEL 1.9 MG/DL (1.8-2.4); POTASSIUM SERUM 3.5 MEQ/L (3.5-5.1); SODIUM LEVEL 140 MEQ/L (136-145)
[2019-07-04] MEDS: ACETAMINOPHEN TAB 650MG DOSE (2X325MG) PO PRN ×2 (07:38→18:30)
[2019-07-04] MEDS: APIXABAN 5 MG TAB (ELIQUIS) PO SCH ×2 (07:38→20:46)
[2019-07-04] MEDS: KCL 20MEQ IN D5/0.45NS 1000ML 1,000 ML IV SCH (07:39)
[2019-07-04] MEDS ORDERED: DOCUSATE SODIUM 100 MG CAP PO PRN (08:30)
[2019-07-04] MEDS: VITAMIN D 1,000 INTERNATIONAL UNITS TABLET PO SCH (08:52)
[2019-07-04] MEDS: MULTIVITAMINS/MINERALS THERAP 1 TAB PO SCH (08:52)
[2019-07-04] MEDS: hydroCHLOROthiazide 12.5 MG CAPSULE PO SCH (08:52)
--- NOTE | 2019-07-04 08:52 | IPN ---
DATE OF SERVICE: 07/04/2019 The patient still complains of occasional nausea, no vomiting, no repeat diarrhea, no abdominal pain. He also complains that his blood pressure remains high at 140 to 166 here in the hospital, but at home has been normal, usually 120s systolic. He otherwise denies any headache, chest pain, pressure or tightness, shortness of breath, palpitations, lightheadedness or dizziness. He is anxious to advance his diet. Vitals: Temperature 99, pulse 53, T-max 100.1, respiratory rate 20, blood pressure 158/72 and 95% on 2 liters nasal cannula. Generally awake, alert, oriented times three, answering questions appropriately. Anicteric sclerae. No jaundice. No use of respiratory accessory muscles. No jugular venous distention (JVD). No thyromegaly. No cervical lymphadenopathy. Lungs are clear to auscultation. No wheezing, rales or rhonchi. Heart: S1, S2. Sinus rhythm. Abdomen: Soft. Nontender. Nondistended. Positive bowel sounds times four quadrants. No rebound. No guarding. Laboratory Data: 07/01/2019 CBC - reviewed 07/04/2019. Sodium 140, potassium 3.5, chloride 109, bicarbonate 24, BUN 28, creatinine 0.8, glucose 129, magnesium 1.9. ASSESSMENT AND PLAN: This is a 74-year-old male with history of atrial fibrillation, hypertensive heart disease, dyslipidemia, osteoarthritis, obstructive sleep apnea on CPAP, colonic polyp, reflux, chronic anemia, prostate CA status post surgery and radiation, endocarditis, idiopathic pericarditis, and pericardial tamponade in 1998, nonobstructive Schatzki ring at the gastroesophageal junction on upper endoscopy November 2012, prostatectomy, bilateral knee replacements, pericardiocentesis, left patellectomy, admitted for gastroenteritis, most likely viral. Current Issues: 1. Gastroenteritis. No repeat episodes of diarrhea. The patient's diet will be advanced on clears. IV fluids will be discontinued. As needed antiemetics. 2. Hypertensive heart disease. The patient is continued on lisinopril. Continue on hydrochlorothiazide. Discontinue IV fluids. 3. Atrial fibrillation. On chronic Eliquis which has been resumed as well as digoxin. HOSPITAL MEDICATIONS: Digoxin, Eliquis, Protonix, Lipitor, lisinopril, simethicone, Compazine, Tylenol. D5 1/2 normal with potassium has been discontinued. Physical therapy/occupational therapy (PT/OT) for disposition.
[2019-07-04 14:00] VITALS: BP 152/68
[2019-07-04] MEDS: ATORVASTATIN 10 MG TAB PO SCH (20:46)
[2019-07-04] MEDS: LISINOPRIL 10 MG TAB PO SCH (20:46)
[2019-07-04] MEDS: DIGOXIN 0.25 MG TAB PO SCH (20:46)
[2019-07-04] MEDS: PANTOPRAZOLE 40MG INJ (PROTONIX) (C9113) IV SCH (20:46)
[2019-07-04 22:00] VITALS: BP 146/80
[2019-07-05 06:00] VITALS: BP 148/70
[2019-07-05 06:36] LABS: BASO % 0.2 % (0.0-1.0); EOS % 0.1 % (0.0-3.0); HEMATOCRIT 38.1 % (42.0-52.0); HEMOGLOBIN 13.4 g/dl (13.5-17.5); LYMPH # 0.7 10^3/uL (1.5-5.0); LYMPH % 7.7 % (24.0-44.0); MEAN CORPUSCULAR HEMOGLOBIN 28.9 pg (27.0-33.0); MEAN CORPUSCULAR HGB CONC 35.2 g/dl (32.0-36.5); MEAN CORPUSCULAR VOLUME 82.3 fl (80.0-96.0); MONO % 10.5 % (0.0-5.0); NEUTROPHILS # 7.4 10^3/uL (1.5-8.5); NEUTROPHILS % 81.1 % (36.0-66.0); PLATELET COUNT, AUTOMATED 185 10^3/uL (150-450); RED BLOOD COUNT 4.63 10^6/uL (4.30-6.10); WHITE BLOOD COUNT 9.1 10^3/uL (4.0-10.0)
[2019-07-05 06:56] LABS: BLOOD UREA NITROGEN 22 MG/DL (7-18); CALCIUM LEVEL 8.1 MG/DL (8.8-10.2); CARBON DIOXIDE LEVEL 25 MEQ/L (21-32); CHLORIDE LEVEL 103 MEQ/L (98-107); CREATININE FOR GFR 0.76 MG/DL (0.70-1.30); GLOMERULAR FILTRATION RATE > 60.0 (>42); GLUCOSE, FASTING 99 MG/DL (70-100); MAGNESIUM LEVEL 1.9 MG/DL (1.8-2.4); POTASSIUM SERUM 3.7 MEQ/L (3.5-5.1); SODIUM LEVEL 135 MEQ/L (136-145)
[2019-07-05] MEDS: ACETAMINOPHEN TAB 650MG DOSE (2X325MG) PO PRN (07:44)
[2019-07-05] MEDS: hydroCHLOROthiazide 12.5 MG CAPSULE PO SCH (07:45)
[2019-07-05] MEDS: APIXABAN 5 MG TAB (ELIQUIS) PO SCH (07:45)
[2019-07-05] MEDS: MULTIVITAMINS/MINERALS THERAP 1 TAB PO SCH (07:45)
[2019-07-05] MEDS: VITAMIN D 1,000 INTERNATIONAL UNITS TABLET PO SCH (07:45)
[2019-07-05] MEDS ORDERED: DIGO0.12 PO (10:38)
[2019-07-05] MEDS ORDERED: NORV5TAB PO (10:41)
[2019-07-05] MEDS ORDERED: amLODIPine 5 MG TAB PO ONE (10:45)
[2019-07-05 11:08] LABS: DIGOXIN LEVEL 0.3 NG/ML (0.5-2.0)
[2019-07-05 11:42] VITALS: BP 132/80
--- NOTE | 2019-07-05 15:31 | DS.PDOC ---
Discharge Summary General Date of Admission Jul 01, 2019 at 21:55 Date of Discharge Jul 05, 2019 Discharge Summary DISCHARGE DIAGNOSES: Gastroenteritis most likely viral Atrial Fibrillation with slow ventricular Response HR 42-70 on Digoxin hypertensive heart disease dyslipidemia osteoarthritis obstructive sleep apnea on CPAP colonic polyp reflux chronic anemia, prostate CA status post surgery and radiation nonobstructive Schatzki ring at the gastroesophageal junction DISCHARGE MEDICATIONS: PLS SEE BELOW DISCHARGE INSTRUCTIONS: Due to HR 42bpm at night, per Dr. Rodgers, may decrease digoxin by half the dose and take in the morning. FU appt with pcp within 5 days of discharge, Dr. Duffy in 1 wk to evaluate persistent reflux and nausea and possible repeat EGD, and residential sales executive Dr. Jensen for adjustment of meds for Afib with slow rate. HISTORY OF PRESENTING ILLNESS: a 74-year-old male with history of atrial fibrillation, hypertensive heart disease, dyslipidemia, osteoarthritis, obstructive sleep apnea on CPAP, colonic polyp, reflux, chronic anemia, prostate CA status post surgery and radiation, endocarditis, idiopathic pericarditis, and pericardial tamponade in 1998, nonobstructive Schatzki ring at the gastroesophageal junction on upper endoscopy November 2012, prostatectomy, bilateral knee replacements, pericardiocentesis, left patellectomy, admitted for gastroenteritis, most likely viral. HOSPITAL COURSE: Gastroenteritis, resolved Since hospital admission, pt has had no episodes of diarrhea, and no samples could be sent for GI panel. He recieved a total of 6liters of NS, PRN antiemetics, and diet was advanced from clears to [place] as tolerated. Pt had episodes of nausea, and reports a prior history of schatzki's ring, but denied any dysphagia, weight loss, or fo od regurgitation. Pt has been advised to followup with GI, for further evaluation as outpt. Hypertensive heart disease. Once he resumed a [place] diet and off IVFluids, pt was started back on his home dose of lisinopril and hydrochlorothiazide. Pt says his blood pressure is usually 120 mmHg systolic, but because he has been stressed out by his recent illness and missing work, he has noticed his blood pressure stay in the 140-150mmHg range with occasional headache. To prevent further bradycardic episodes, norvasc was added as needed for symptomatic uncontrolled HTN with resultant improvement into 130mmHg. Atrial fibrillation. Due to c/o diarrhea, anorexia, digoxin level was checked on admission to rule out toxicity. level was wnl. On routine vitals check, HR was noted to range 42 bpm to 70 bpm. No hemodynamic instability was noted, and pt was asymptomatic. Per Dr. Rodgers, digoxin was decreased to half the dose, and changed from qhs to qam. and pt were instructed to check his blood pressure and pulse prior to taking his medications, and to have fu with Dr. Jensen within 1 wk of discharge. continued on Eliquis during his hospital stay. History of Schatzki's Ring with episodes of intermittent nausea and worsening reflux. No c/o dysphagia, food regurgitation, or weight loss to necessitate immediate endoscopy. Pt was encouraged to fu w Dr. Duffy as outpt. Low grade Fever Pt has had 100.0 and 100.1 temperatures on routine vitals. He denied any dysuria, urgency, frequency, cough, sob, chills. no skin changes, weight loss, diaphoresis. c/o fatigue from recent diarrhea. infectious workup with ua negative ct abd pelvis: no acute pathology. procalcitonin was checked, but result was pending at discharge. Pt had been on eliquis, and had been ambulatory during his entire admission making DVT/PE less likely. DISCHARGE PHYSICAL EXAMINATION: VITALS: PLS SEE BELOW Generally awake, alert, oriented times three, answering questions appropriately. Anicteric sclerae. No jaundice. No use of respiratory accessory muscles. No jugular venous distention (JVD). No thyromegaly. No cervical lymphadenopathy. Lungs are clear to auscultation. No wheezing, rales or rhonchi. Heart: S1, S2. Sinus rhythm. Abdomen: Soft. Nontender. Nondistended. Positive bowel sounds times four quadrants. No rebound. No guarding. DISCHARGE LABORATORY DATA, IMAGING STUDIES, MICROBIOLOGY: PLS SEE BELOW TIME SPENT ON DISCHARGE: 30 MINUTES Vital Signs/I&Os Vital Signs Date Time Temp Pulse Resp B/P (MAP) Pulse Ox O2 Delivery O2 Flow Rate FiO2 07/05/19 11:42 132/80 07/05/19 06:00 98.3 64 20 97 07/01/19 20:19 Room Air I&O- Last 24 Hours up to 6 AM 07/05/19 06:00 Intake Total 1520 ml Balance 1520 ml Laboratory Data Labs 24H Laboratory Tests 2 07/05/19 06:08: Immature Granulocyte % (Auto) 0.4, White Blood Count 9.1, Red Blood Count 4.63, Hemoglobin 13.4L, Hematocrit 38.1L, Mean Corpuscular Volume 82.3, Mean Corpuscular Hemoglobin 28.9, Mean Corpuscular Hemoglobin Concent 35.2, Red Cell Distribution Width 12.9, Platelet Count 185, Neutrophils (%) (Auto) 81.1H, Lymphocytes (%) (Auto) 7.7L, Monocytes (%) (Auto) 10.5H, Eosinophils (%) (Auto) 0.1, Basophils (%) (Auto) 0.2, Neutrophils # (Auto) 7.4, Lymphocytes # (Auto) 0.7L, Monocytes # (Auto) 1.0H, Eosinophils # (Auto) 0.0, Basophils # (Auto) 0.0, Nucleated Red Blood Cells % (auto) 0.0, Anion Gap 7L, Glomerular Filtration Rate > 60.0, Blood Urea Nitrogen 22H, Creatinine 0.76, Sodium Level 135L, Potassium Level 3.7, Chloride Level 103, Carbon Dioxide Level 25, Calcium Level 8.1L, Magnesium Level 1.9, Digoxin Level 0.3L CBC/BMP Laboratory Tests 07/05/19 06:08 Red Blood Count 4.63, Mean Corpuscular Volume 82.3, Mean Corpuscular Hemoglobin 28.9, Mean Corpuscular Hemoglobin Concent 35.2, Red Cell Distribution Width 12.9, Neutrophils (%) (Auto) 81.1 H, Lymphocytes (%) (Auto) 7.7 L, Monocytes (%) (Auto) 10.5 H, Eosinophils (%) (Auto) 0.1, Basophils (%) (Auto) 0.2, Neutrophils # (Auto) 7.4, Lymphocytes # (Auto) 0.7 L, Monocytes # (Auto) 1.0 H, Eosinophils # (Auto) 0.0, Basophils # (Auto) 0.0, Calcium Level 8.1 L Discharge Medications Scheduled Apixaban (Eliquis) 5 Mg Tab, 5 MG PO BID, (Reported) Ascorbic Acid (Vitamin C) 500 Mg Tab, 1,000 MG PO DAILY, (Reported) Atorvastatin Calcium (Atorvastatin Calcium) 10 Mg Tab, 10 MG PO QHS, (Reported) Cholecalciferol (Vitamin D3) (Vitamin D3) 1,000 Unit Tab, 1,000 UNIT PO DAILY, (Reported) Digoxin (Digoxin) 125 Mcg Tablet, 125 MCG PO QAM Esomeprazole Magnesium (Nexium) 40 Mg Cap, 40 MG PO DAILY, (Reported) Glucosamine/MSM/Chondroitin A (Glucosamine Chondroit MSM Tab) 1 Each Tablet, 2 TAB PO DAILY, (Reported) Hydrochlorothiazide (Hydrochlorothiazide) 25 Mg Tab, 12.5 MG PO DAILY, (Reported) Lactobacillus Acidophilus (Probiotic) 1 Each Capsule, 1 CAP PO DAILY, (Reported) Lisinopril (Lisinopril) 30 Mg Tab, 30 MG PO QHS, (Reported) Multivitamins (Thera M Plus Tablet) 1 Tab Tab, 1 TAB PO DAILY, (Reported) [place]worth-3S/Dha/Epa/Fish Oil (Fish Oil EC 1,200 mg Softgel) 1 Cap Cap, 2 CAP PO QAM, (Reported) Scheduled PRN Acetaminophen (Tylenol Arthritis) 650 Mg Tablet.er, 1,300 MG PO BID PRN for PAIN, (Reported) Amlodipine Besylate (Norvasc) 5 Mg Tablet, 5 MG PO BID PRN for sbp>150mmHg Docusate Sodium (Colace) 100 Mg Cap, 100 MG PO DAILY PRN for CONSTIPATION, (Reported) Allergies Coded Allergies: No Known Allergies (Verified , 07/01/19) JORGE LUIS VALDOVINOS MD Jul 05, 2019 15:16
== END 2019-07-05 13:26 | disposition home or self-care (01) | DRG 249 ==
LOC: M ED 17:45 → M ED INP 21:55 → M MSPAV 23:00
PROVIDERS: ADMIT Internal Medicine Nephrology; ATTEND General Practice
DX: A08.4 Viral intestinal infection, unspecified (principal); I48.91 Unspecified atrial fibrillation; I11.9 Hypertensive heart disease without heart failure; K22.2 Esophageal obstruction; D64.9 Anemia, unspecified; I35.0 Nonrheumatic aortic (valve) stenosis; M19.90 Unspecified osteoarthritis, unspecified site; E78.5 Hyperlipidemia, unspecified; G47.33 Obstructive sleep apnea (adult) (pediatric); K21.9 Gastro-esophageal reflux disease without esophagitis; Z85.46 Personal history of malignant neoplasm of prostate; Z79.899 Other long term (current) drug therapy; Z96.651 Presence of right artificial knee joint; Z96.652 Presence of left artificial knee joint; Z87.891 Personal history of nicotine dependence; E87.6 Hypokalemia

== ENCOUNTER 2019-07-14 07:30 | Outpatient (RCR) | payer BC, OTHER ==
[~2019-07-14 07:30] MED LIST changes: +DIGO0.12 PO; +GLUCTAB31 PO; +NORV5TAB PO; +PROBCAP14 PO
== END 2019-07-31 ==
LOC: M PT 07:30
PROVIDERS: ATTEND Internal Medicine
DX: Z47.1 Aftercare following joint replacement surgery (principal); Z96.652 Presence of left artificial knee joint

== ENCOUNTER → 2019-08-11 | Outpatient (CLI) | payer BC, OTHER ==
[2019-08-11 10:34] LABS: BLOOD UREA NITROGEN 17 MG/DL (7-18); CARBON DIOXIDE LEVEL 27 MEQ/L (21-32); CHLORIDE LEVEL 108 MEQ/L (98-107); CREATININE FOR GFR 0.75 MG/DL (0.70-1.30); GLOMERULAR FILTRATION RATE > 60.0 (>42); GLUCOSE, FASTING 107 MG/DL (70-100); MAGNESIUM LEVEL 1.8 MG/DL (1.8-2.4); POTASSIUM SERUM 3.9 MEQ/L (3.5-5.1); SODIUM LEVEL 142 MEQ/L (136-145)
== END ==
LOC: M LAB 09:17
PROVIDERS: ATTEND Physician Assistant
DX: I48.0 Paroxysmal atrial fibrillation (principal)

== ENCOUNTER → 2019-08-21 | Outpatient (CLI) | payer BC, OTHER ==
[2019-08-21 10:54] LABS: BLOOD UREA NITROGEN 22 MG/DL (7-18); CALCIUM LEVEL 8.7 MG/DL (8.8-10.2); CARBON DIOXIDE LEVEL 27 MEQ/L (21-32); CHLORIDE LEVEL 109 MEQ/L (98-107); CREATININE FOR GFR 0.76 MG/DL (0.70-1.30); GLOMERULAR FILTRATION RATE > 60.0 (>42); GLUCOSE, FASTING 122 MG/DL (70-100); SODIUM LEVEL 142 MEQ/L (136-145)
== END ==
LOC: M LAB 09:59
PROVIDERS: ATTEND Physician Assistant
DX: I48.0 Paroxysmal atrial fibrillation (principal)

== ENCOUNTER → 2019-10-03 | Outpatient (CLI) | payer BC, OTHER | LOC: M LAB 10:02 | PROVIDERS: ATTEND Nurse Practitioner Women's Health | DX: Z85.46 Personal history of malignant neoplasm of prostate (principal) ==

== ENCOUNTER → 2019-11-03 | Outpatient (REF) | payer BC, OTHER ==
[~2019-11-03] MED LIST changes: -DIGO0.12 PO; +DIGO0.123 PO; +DIGO0.253 PO
== END ==
LOC: M SMT 13:36
PROVIDERS: ATTEND Nurse Practitioner Women's Health
DX: R39.15 Urgency of urination (principal)

== ENCOUNTER → 2019-11-16 | Outpatient (CLI) | payer BC, OTHER ==
[2019-11-16 15:38] LABS: APPEARANCE, URINE CLEAR (CLEAR); BACTERIA, URINE AUTO NEGATIVE (NEGATIVE); BILIRUBIN, URINE AUTO NEGATIVE (NEGATIVE); BLOOD, URINE BLOOD 2+ (NEGATIVE); COLOR, URINE YELLOW (YELLOW); GLUCOSE, URINE (UA) AUTO NEGATIVE (NEGATIVE); KETONE, URINE AUTO NEGATIVE (NEGATIVE); LEUKOCYTE ESTERASE, URINE AUTO NEGATIVE (NEGATIVE); MUCUS, URINE SMALL (NEGATIVE); NITRITE, URINE AUTO NEGATIVE (NEGATIVE); PROTEIN, URINE AUTO NEGATIVE (NEGATIVE); RBC, URINE AUTO TNTC /HPF (0-3); SPECIFIC GRAVITY URINE AUTO 1.019 (1.002-1.035); SQUAMOUS EPITHELIAL CELL UR AU 0 /HPF (0-6); UROBILINOGEN, URINE AUTO 0.2 mg/dL (0.0-2.0); WBC, URINE AUTO 1 /HPF (0-3)
== END ==
LOC: M LAB 13:09
PROVIDERS: ATTEND Nurse Practitioner Women's Health
DX: N39.0 Urinary tract infection, site not specified (principal)

== ENCOUNTER → 2019-12-21 | Outpatient (CLI) | payer BC, OTHER ==
[~2019-12-21] MED LIST changes: +E-Z-GAS II EFFERVESCENT PACKET (SODIUM BICARB./CITRIC ACID/SIMETHICONE) As Ordered ONE; +E-Z-HD 98% w/w 340GM SUSP BTL As Ordered ONE; +E-Z-PAQUE 96% w/w SUSP 176GM BTL As Ordered ONE
--- NOTE | 2019-12-21 19:35 | REP ---
Examination Requested: Esophagram Barium Swallow Reason For Exam/Comment: Dysphasia, Esophagram: The procedure was performed MARCELINO [place], under the direct supervision of Dr. Moraes. The images were reviewed with Dr. Moraes. A single PA chest x-ray is submitted as a real estate office manager film. The superior mediastinal structures are midline. The heart size is within normal limits. The lungs are clear. Liquid barium and gas producing granules were given in the erect position as well as liquid barium in the prone oblique position, in order to perform a double contrast esophagram examination. Oral and pharyngeal stages of the examination were unremarkable. However, no is made of a mild hyperplastic cricopharyngeal muscle. Esophageal transport is efficient and there is no esophagitis, stricture, or mucosal ring noted. There is no hiatal hernia noted. Gastroesophageal reflux was visualized to the level of the jasmyne . Impression: 1. Gastroesophageal reflux to the level of the jasmyne. 2. Mild hyperplastic cricopharyngeal muscle. 0.3 minutes of fluoroscopy time was utilized for this procedure. Some fluoroscopic images are performed with last image hold technology. These images require no additional radiation. Reviewed by MARCELINO Hassan 12/21/2019 05:29 P Electronically Signed by Mike Moraes MD 12/21/2019 07:25 P
== END ==
LOC: M RAD 08:34
PROVIDERS: ATTEND Internal Medicine
DX: R13.10 Dysphagia, unspecified (principal)

== ENCOUNTER 2020-03-15 18:43 | Emergency (ER) | payer BC, OTHER ==
[~2020-03-15] VITALS: Ht 177.8 cm; Wt 117.1 kg
[~2020-03-15 18:43] MED LIST changes: -E-Z-GAS II EFFERVESCENT PACKET (SODIUM BICARB./CITRIC ACID/SIMETHICONE) As Ordered ONE; -E-Z-HD 98% w/w 340GM SUSP BTL As Ordered ONE; -E-Z-PAQUE 96% w/w SUSP 176GM BTL As Ordered ONE; -LISI-672 PO; +LISI30TA4 PO
--- NOTE | 2020-03-15 19:49 | REPVR ---
PROCEDURE INFORMATION: Exam: CT Head Without Contrast Exam date and time: 03/15/2020 7:19 PM Age: 74 years old Clinical indication: Injury or trauma; Fall; Initial encounter; Blunt trauma (contusions or hematomas); Additional info: Traum TECHNIQUE: Imaging protocol: Computed tomography of the head without contrast. Radiation optimization: All CT scans at this facility use at least one of these dose optimization techniques: automated exposure control; mA and/or kV adjustment per patient size (includes targeted exams where dose is matched to clinical indication); or iterative reconstruction. COMPARISON: CT Head without contrast 11/06/2016 10:55 AM FINDINGS: Brain: There is no evidence of infarct, sloan-white matter differentiation is preserved. There is no hemorrhage or extra-axial collection. There is no mass. Ventricles: There is no hydrocephalus. Bones/joints: Unremarkable. No acute fracture. Sinuses: There is an air-fluid level in the left maxillary sinus. This was also present on the prior scan. There is a small retention cyst in the right maxillary sinus. Mastoid air cells: Visualized mastoid air cells are well aerated. Soft tissues: Unremarkable. IMPRESSION: No intracranial injury or lesion. No change from prior scan. Electronically signed by: Ramone Torres On 03/15/2020 19:49:25 PM
--- NOTE | 2020-03-15 19:55 | REPVR ---
PROCEDURE INFORMATION: Exam: CT Cervical Spine Without Contrast Exam date and time: 03/15/2020 7:19 PM Age: 74 years old Clinical indication: Injury or trauma; Fall; Initial encounter; Blunt trauma; Additional info: Traum TECHNIQUE: Imaging protocol: Computed tomography images of the cervical spine without contrast. Radiation optimization: All CT scans at this facility use at least one of these dose optimization techniques: automated exposure control; mA and/or kV adjustment per patient size (includes targeted exams where dose is matched to clinical indication); or iterative reconstruction. COMPARISON: XA Esophagram Barium Swallow 12/21/2019 8:49 AM FINDINGS: Vertebrae: There is no fracture. There is minimal C3-C4 anterolisthesis. Alignment is otherwise normal. There is no focal osseous lesion. Discs/Spinal canal/Neural foramina: There is multilevel disc space narrowing. There are small posterior osteophytes and disc bulges. This results in borderline segmental central spinal stenosis from C4-C5 to C6-C7. There is multilevel foraminal stenosis most severe on the right at C3-C4 and C4-C5. Bilateral foraminal stenosis at C5-C6 and on the right at C6-C7. Soft tissues: Unremarkable. Lungs: Lung apices are normal. IMPRESSION: 1. No fracture of the cervical spine. 2. Degenerative findings described above. Electronically signed by: Ramone Torres On 03/15/2020 19:55:33 PM
[2020-03-15] MEDS ORDERED: MORPHINE 2 MG/ML 1ML VIAL (J2270) IV ONE (20:15)
[2020-03-15] MEDS ORDERED: NS 500 ML IV ONE (20:15)
[2020-03-15 20:40] LABS: BASO % 0.1 % (0.0-1.0); EOS # 0.1 10^3/uL (0.0-0.5); EOS % 0.8 % (0.0-3.0); HEMATOCRIT 36.1 % (42.0-52.0); HEMOGLOBIN 12.1 g/dl (13.5-17.5); LYMPH # 0.6 10^3/uL (1.5-5.0); LYMPH % 7.4 % (24.0-44.0); MEAN CORPUSCULAR HEMOGLOBIN 28.6 pg (27.0-33.0); MEAN CORPUSCULAR HGB CONC 33.5 g/dl (32.0-36.5); MEAN CORPUSCULAR VOLUME 85.3 fl (80.0-96.0); MONO # 0.8 10^3/uL (0.0-0.8); MONO % 10.1 % (0.0-5.0); NEUTROPHILS # 6.4 10^3/uL (1.5-8.5); NEUTROPHILS % 81.2 % (36.0-66.0); PLATELET COUNT, AUTOMATED 200 10^3/uL (150-450); RED BLOOD COUNT 4.23 10^6/uL (4.30-6.10); WHITE BLOOD COUNT 7.9 10^3/uL (4.0-10.0)
[2020-03-15 20:59] LABS: INR 1.31
[2020-03-15 21:00] LABS: PARTIAL THROMBOPLASTIN TIME 29.5 SECONDS (25.0-38.4)
[2020-03-15 21:10] LABS: ALBUMIN 3.4 GM/DL (3.2-5.2); ALT/SGPT 32 U/L (12-78); BILIRUBIN,DIRECT 0.2 MG/DL (0.0-0.2); BILIRUBIN,TOTAL 0.4 MG/DL (0.2-1.0); BLOOD UREA NITROGEN 28 MG/DL (7-18); CALCIUM LEVEL 8.4 MG/DL (8.8-10.2); CARBON DIOXIDE LEVEL 23 MEQ/L (21-32); CHLORIDE LEVEL 109 MEQ/L (98-107); CREATININE FOR GFR 0.87 MG/DL (0.70-1.30); GLOMERULAR FILTRATION RATE > 60.0 (>42); GLUCOSE, FASTING 129 MG/DL (70-100); LIPASE 108 U/L (73-393); POTASSIUM SERUM 4.1 MEQ/L (3.5-5.1); SODIUM LEVEL 140 MEQ/L (136-145); TOTAL PROTEIN 6.2 GM/DL (6.4-8.2)
[2020-03-15] MEDS ORDERED: ISOVUE-370 76% 100ML VIAL As Ordered ONE (21:21)
--- NOTE | 2020-03-15 21:57 | REPVR ---
PROCEDURE INFORMATION: Exam: CT Chest With Contrast Exam date and time: 03/15/2020 9:29 PM Age: 74 years old Clinical indication: Injury or trauma; Fall; Initial encounter; Blunt trauma (contusions or hematomas); Additional info: Trauma/l flank injury/pain TECHNIQUE: Imaging protocol: Computed tomography of the chest with intravenous contrast. Radiation optimization: All CT scans at this facility use at least one of these dose optimization techniques: automated exposure control; mA and/or kV adjustment per patient size (includes targeted exams where dose is matched to clinical indication); or iterative reconstruction. Contrast material: ISOVUE 370; Contrast volume: 100 ml; Contrast route: IV; COMPARISON: [facility] CT ANGIO CHEST 02/12/2018 11:50 AM FINDINGS: Lungs: No evidence of lung contusion or consolidation. Pleural space: No pleural effusion or hemothorax. No evidence of pneumothorax. Heart: There are coronary artery calcifications. Mediastinum: No mediastinal hematoma. No evidence of pneumomediastinum. Aorta: There is no thoracic aortic aneurysm, dissection or vascular injury. Lymph nodes: Calcified mediastinal lymph nodes are present. No significantly enlarged lymph nodes. Bones/joints: There is an acute fracture of the left 12th rib. No additional fractures.There are degenerative changes of the thoracic spine. Soft tissues: Unremarkable. Other findings: Abdomen separately reported. IMPRESSION: 1. Acute fracture of the left 12th rib. 2. No intrathoracic injury. Electronically signed by: Ramone Torres On 03/15/2020 21:56:31 PM
--- NOTE | 2020-03-15 22:05 | REPVR ---
PROCEDURE INFORMATION: Exam: CT Abdomen And Pelvis With Contrast Exam date and time: 03/15/2020 9:29 PM Age: 74 years old Clinical indication: Pain and injury or trauma; Fall; Initial encounter; Blunt; Abdominal wall; Abdominal pain; Flank; Left; Additional info: Trauma/l flank injury/pain TECHNIQUE: Imaging protocol: Computed tomography of the abdomen and pelvis with intravenous contrast. Radiation optimization: All CT scans at this facility use at least one of these dose optimization techniques: automated exposure control; mA and/or kV adjustment per patient size (includes targeted exams where dose is matched to clinical indication); or iterative reconstruction. Contrast material: ISOVUE 370; Contrast volume: 100 ml; Contrast route: IV; COMPARISON: CT ABD/PEL W/IV CONTRAST ONLY 07/02/2019 11:33 AM FINDINGS: Liver: There are numerous hepatic cysts measuring up to 4 cm. In size. No significant change from prior scan. No laceration. Gallbladder and bile ducts: The gallbladder is normal.No calcified calculi. Normal bile ducts. Pancreas: The pancreas is normal. Spleen: The spleen is normal. Adrenals: The adrenal glands are normal. Kidneys and ureters: There are renal cysts measuring up to 2.5 cm. These appear to be simple cysts with no change from prior scan. No laceration. No perinephric hematoma. Stomach and bowel: Unremarkable. No obstruction. No mucosal thickening. Appendix: No evidence of appendicitis. Intraperitoneal space: There is no free fluid or fluid collection. There is no free air. There is no hemoperitoneum. Retroperitoneal space: No evidence of retroperitoneal hemorrhage. Vasculature: Unremarkable. No abdominal aortic aneurysm. Lymph nodes: Unremarkable. No enlarged lymph nodes. Bladder: The bladder is normal with no evidence of calculi. Reproductive: Unremarkable as visualized. Bones/joints: There is a fracture of the left 12th rib as reported on chest CT. There are advanced degenerative changes of the lumbar spine. No additional fractures. Soft tissues: Unremarkable. IMPRESSION: No abdominal or pelvic injury. Electronically signed by: Ramone Torres On 03/15/2020 22:04:43 PM
[2020-03-15] MEDS ORDERED: HYDR-3713 PO (22:43)
[2020-03-15] MEDS ORDERED: MORPHINE 10 MG/ML 1ML VIAL (J2270) IV ONE (22:45)
[2020-03-15] MEDS ORDERED: NORCO 5/325MG TABLET (BULK FOR ED) PO ONE (22:45)
[2020-03-15 23:46] VITALS: BP 154/75
== END 2020-03-15 23:53 | disposition home or self-care (01) ==
LOC: M ED 18:43
DX: S22.32XA Fracture of one rib, left side, initial encounter for closed fracture (principal); W01.198A Fall on same level from slipping, tripping and stumbling with subsequent striking against other object, initial encounter; Y92.010 Kitchen of single-family (private) house as the place of occurrence of the external cause; I10 Essential (primary) hypertension; I48.91 Unspecified atrial fibrillation; K21.9 Gastro-esophageal reflux disease without esophagitis; Z79.899 Other long term (current) drug therapy; Z79.01 Long term (current) use of anticoagulants
CPT/HCPCS: 70450; 71260; 72125; 74177; 80048; 80076; 83690; 85025; 85610; 85730; 96374; 96376; 99284; J2270; Q9967

== ENCOUNTER → 2020-06-21 | Outpatient (REF) | payer BC, OTHER ==
[~2020-06-21] MED LIST changes: +ACET650T61 PO; +HYDR-3713 PO; -TYLE650T35 PO
== END ==
LOC: M LAB REF 12:32
PROVIDERS: ATTEND Internal Medicine
DX: I48.0 Paroxysmal atrial fibrillation (principal)

== ENCOUNTER 2020-07-15 13:24 | Emergency (ER) | payer BC, OTHER ==
[~2020-07-15] VITALS: Ht 182.9 cm; Wt 112.3 kg
--- NOTE | 2020-07-15 14:34 | REPVR ---
PROCEDURE INFORMATION: Exam: CT Head Without Contrast Exam date and time: 07/15/2020 2:25 PM Age: 75 years old Clinical indication: Injury or trauma; Fall; Initial encounter; Blunt trauma (contusions or hematomas); Additional info: Fall on eliquis TECHNIQUE: Imaging protocol: Computed tomography of the head without contrast. Radiation optimization: All CT scans at this facility use at least one of these dose optimization techniques: automated exposure control; mA and/or kV adjustment per patient size (includes targeted exams where dose is matched to clinical indication); or iterative reconstruction. COMPARISON: CT Head without contrast 03/15/2020 7:14 PM FINDINGS: Brain: Artifact partially limits evaluation posterior fossa. No evidence of acute intracranial hemorrhage. No extra-axial fluid collections. There is mild lucency in the cerebral white matter, consistent with microvascular disease. Bush white differentiation is intact. No evidence of mass. Ventricles: No ventriculomegaly. Bones/joints: No acute fracture. Paranasal sinuses: There is mucosal thickening and fluid in left maxillary sinus there is minimal mucosal thickening in superomedial right maxillary sinus. There is partial opacification in lateral aspect ostiomeatal complexes. Mastoid air cells: No significant mastoid effusion. Vasculature: There is vascular calcification. Soft tissues: Unremarkable as visualized. IMPRESSION: 1. No evidence of acute intracranial abnormality. 2. Microvascular disease. 3. Sinus findings as described. Electronically signed by: Robyn Delarosa On 07/15/2020 14:34:20 PM
--- NOTE | 2020-07-15 14:41 | REPVR ---
PROCEDURE INFORMATION: Exam: CT Cervical Spine Without Contrast Exam date and time: 07/15/2020 2:25 PM Age: 75 years old Clinical indication: Injury or trauma; Fall; Initial encounter; Blunt trauma; Additional info: Fall on eliquis TECHNIQUE: Imaging protocol: Computed tomography images of the cervical spine without contrast. Radiation optimization: All CT scans at this facility use at least one of these dose optimization techniques: automated exposure control; mA and/or kV adjustment per patient size (includes targeted exams where dose is matched to clinical indication); or iterative reconstruction. COMPARISON: CT Spine,cervical w/o contrast 03/15/2020 7:14 PM FINDINGS: Vertebrae: There is no evidence of acute fracture. There is minimal retrolisthesis of C5 on C6. There is partial fusion of C6 and C7 vertebral bodies. Discs/Spinal canal/Neural foramina: There is small disc osteophyte complexes which cause likely mild spinal canal narrowing C4-C5 through C6-C7. There are facet and uncinate osteophytes causing left C2-C3 right greater than left C3-C4, right greater than left C4-C5, bilateral C5-C6, and bilateral C6-C7. This is greatest and severe bilateral C5-C6 and right C3-C4. Soft tissues: There is no evidence prevertebral soft tissue swelling. There is calcification of right greater than left bulbs. Thyroid: There are very small 2-3 mm low-density areas in the thyroid gland which do not require any further evaluation given patient's age and nodule size. Lungs: Lung apices are unremarkable for acute finding. IMPRESSION: 1. No acute fracture. 2. Degenerative changes as described. COMMENTS: Consistent with the [employer]'s Incidental Findings Committee white paper (J Am Amie Radiol 2015): In patients aged 35 years and older with an incidental thyroid nodule equal to or greater than 1.[address], MRI or extrathyroidal US, further evaluation with dedicated thyroid US is recommended for patients with normal life expectancy and without comorbidities. For smaller nodules without suspicious features, no further evaluation or follow up is recommended. Electronically signed by: Robyn Delarosa On 07/15/2020 14:41:39 PM
--- NOTE | 2020-07-15 14:43 | REPVR ---
PROCEDURE INFORMATION: Exam: XR Right Hand Exam date and time: 07/15/2020 2:33 PM Age: 75 years old Clinical indication: Injury or trauma; Fall; Initial encounter; Concussion /head injury TECHNIQUE: Imaging protocol: XR Right hand. Views: 3 or more views. COMPARISON: No relevant prior studies available. FINDINGS: Bones/joints: There is no evidence of acute fracture. No dislocation. There are degenerative changes between navicular and distal carpal row and 1st carpometacarpal joint. Soft tissues: Normal. IMPRESSION: No evidence of fracture or dislocation. Electronically signed by: Robyn Delarosa On 07/15/2020 14:43:22 PM
--- NOTE | 2020-07-15 14:47 | REPVR ---
PROCEDURE INFORMATION: Exam: XR Left Knee Exam date and time: 07/15/2020 2:33 PM Age: 75 years old Clinical indication: Injury or trauma; Fall; Initial encounter; Concussion / head injury; Prior surgery; Surgery date: 6+ months TECHNIQUE: Imaging protocol: XR Left knee. Views: 4 or more views. 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 Prosthetic components appear appropriately aligned. There is heterotopic bone lateral to the distal femur. There is no evidence of acute fracture. Bones are demineralized. Soft tissues: Vascular arterial calcifications. IMPRESSION: No evidence of acute fracture. Revision total knee arthroplasty. Electronically signed by: Robyn Delarosa On 07/15/2020 14:46:45 PM
[2020-07-15 15:15] VITALS: BP 126/67
--- NOTE | 2020-07-19 09:23 | ED PDOC ---
Post-Departure Follow-Up radiology report faxed to Zee Kwon MD Jul 19, 2020 09:23
== END 2020-07-15 15:40 | disposition home or self-care (01) ==
LOC: M ED 13:24
DX: S00.81XA Abrasion of other part of head, initial encounter (principal); S63.639A Sprain of interphalangeal joint of unspecified finger, initial encounter; S80.02XA Contusion of left knee, initial encounter; W01.0XXA Fall on same level from slipping, tripping and stumbling without subsequent striking against object, initial encounter; Y92.9 Unspecified place or not applicable; Y93.9 Activity, unspecified; Y99.9 Unspecified external cause status; I10 Essential (primary) hypertension; I48.91 Unspecified atrial fibrillation; E78.5 Hyperlipidemia, unspecified; G47.33 Obstructive sleep apnea (adult) (pediatric); Z79.01 Long term (current) use of anticoagulants; Z79.899 Other long term (current) drug therapy; Z96.652 Presence of left artificial knee joint

== ENCOUNTER → 2020-08-01 | Outpatient (CLI) | payer BC, OTHER ==
--- NOTE | 2020-08-07 16:23 | REP ---
KUB: THREE VIEWS PRESENTED HISTORY: Abdomen pain. COMPARISON: Comparison radiographs February 04, 2012. FINDINGS: There is formed stool in the transverse colon. No large or small bowel dilation is seen. Bowel gas pattern is felt to be normal. Psoas margins and flank stripes are intact. There is a levoconvex curvature in the lumbar spine, and degenerative spondylosis changes are noted as before. No bony destructive lesion is seen. No pathologic calcification, mass, or organomegaly is seen. IMPRESSION: Lumbar scoliosis and spondylosis changes. Bowel gas pattern is unremarkable. MTDD
== END ==
LOC: M RAD 10:06
PROVIDERS: ATTEND Nurse Practitioner Adult Health
DX: R10.12 Left upper quadrant pain (principal)

== ENCOUNTER → 2020-10-21 | Outpatient (CLI) | payer SELFPAY | LOC: M LABSMTC 11:49 | PROVIDERS: ATTEND Pediatrics | DX: Z20.828 Contact with and (suspected) exposure to other viral communicable diseases (principal) ==

== ENCOUNTER → 2021-01-06 | Outpatient (REF) | payer MEDICARE, OTHER ==
[~2021-01-06] MED LIST changes: +HYDR-3490 PO; -HYDR25TAB PO
== END ==
LOC: M LAB REF 12:17
PROVIDERS: ATTEND Internal Medicine
DX: I48.0 Paroxysmal atrial fibrillation (principal)

== ENCOUNTER → 2021-01-15 | Outpatient (CLI) | payer MEDICARE, OTHER ==
[~2021-01-15] MED LIST changes: +GASTROGRAFIN SOLUTION 30ML (Q9963) As Ordered ONE; +ISOVUE-370 76% 100ML VIAL As Ordered ONE
--- NOTE | 2021-01-15 19:04 | REP ---
INDICATION: LEFT UPPER QUADRANT PAIN. COMPARISON: 03/15/2020. TECHNIQUE: CT of the abdomen, pelvis not included, without IV contrast followed by CT of the abdomen and pelvis with IV contrast. This is a followed by delayed CT of the abdomen, pelvis not included. Bowel contrast is also utilized. FINDINGS: The visualized lung richardson are unremarkable. There are multiple hepatic cysts, not significantly changed. The gallbladder, pancreas and spleen are unremarkable and unchanged. Spleen is normal size. There are no splenic calcifications or masses. No perisplenic free fluid. The adrenals are unremarkable. The kidneys are unremarkable except for an exophytic left renal cortical cyst measuring 2.7 cm and left renal parapelvic cysts. These are unchanged. Additionally there is a small left renal 1 cm parapelvic cysts, unchanged. And a left renal 1.3 cm cortical cyst, unchanged. There is no pararenal fluid collection there is mild perirenal stranding bilaterally, not unusual for patient age, unchanged. There is normal cortical enhancement of the kidneys bilaterally. The abdominal aorta is unremarkable. There is no periaortic adenopathy or mass. There is no bowel distention or obstruction. The mesentery is unremarkable. Pelvis: There is sigmoid colon diverticulosis. There is no CT evidence of diverticulitis. There is no free fluid in the pelvis. There is no pneumoperitoneum. The bladder is unremarkable. There are calcifications posterolateral to the bladder on the left, unchanged from 03/01/2008, likely phleboliths. There are degenerative disc changes in the lumbar spine, unchanged. IMPRESSION: The spleen is unremarkable. There are multiple left renal cysts as described. Left renal parapelvic cysts are also noted. There is no hydronephrosis. No renal or ureteral calculi are identified. There are phleboliths posterolateral to the bladder on the left. There is sigmoid colon diverticulosis without diverticulitis. <Electronically signed by Christos Hernandez > 01/15/21 1906
== END ==
LOC: M RAD 15:41
PROVIDERS: ATTEND Internal Medicine
DX: N28.1 Cyst of kidney, acquired (principal)
CPT/HCPCS: 74178; Q9963; Q9967

== ENCOUNTER → 2021-03-28 | Outpatient (CLI) | payer MEDICARE, OTHER ==
[~2021-03-28] MED LIST changes: +FLEC50HA PO; -GASTROGRAFIN SOLUTION 30ML (Q9963) As Ordered ONE; -ISOVUE-370 76% 100ML VIAL As Ordered ONE; +SPIR-10 PO
== END ==
LOC: M LABSMTC 11:26
PROVIDERS: ATTEND Anesthesiology
DX: Z20.828 Contact with and (suspected) exposure to other viral communicable diseases (principal); Z11.59 Encounter for screening for other viral diseases

== ENCOUNTER 2021-04-02 08:30 | Day surgery (SDC) | payer MEDICARE, OTHER ==
[~2021-04-02] VITALS: Ht 175.3 cm; Wt 106.8 kg
[~2021-04-02 08:30] MED LIST changes: +NS 1,000 ML IV ONE
[2021-04-02] MEDS ORDERED: propofoL 200 MG/20 ML VIAL As Ordered ONE ×2 (10:54→11:25)
[2021-04-02] MEDS ORDERED: fentaNYL 100 MCG/2 ML INJECTION (J3010) As Ordered ONE (10:54)
[2021-04-02] MEDS ORDERED: LIDOCAINE 2% 100MG/5ML SDV (FOR ANES.) As Ordered ONE (10:54)
--- NOTE | 2021-04-02 11:21 | ROOR ---
Patient Name: Neel Varner Procedure Date: 04/02/2021 11:06 AM Date of : 1945 Age: 76 Room: [facility], [facility] Gender: Male Note Status: Finalized Procedure: Upper Endoscopy + Biopsies Indications: Abdominal pain in the left upper quadrant, Heartburn Providers: Jake Duffy MD Referring MD: SHERRON BLANCHARD JR, MD Requesting Provider: Medicines: Monitored Anesthesia Care Complications: No immediate complications. Procedure: Pre-Anesthesia Assessment: - The heart rate, respiratory rate, oxygen saturations, blood pressure, adequacy of pulmonary ventilation, and response to care were monitored throughout the procedure. The Endoscope was introduced through the mouth, and advanced to the second part of duodenum. The upper GI endoscopy was accomplished without difficulty. The patient tolerated the procedure well. Findings: The Z-line was variable and was found 45 cm from the incisors. Multiple biopsies were obtained with cold forceps for evaluation to rule out Raza's Esophagus randomly at the gastroesophageal junction. Localized mild inflammation characterized by congestion (edema), erosions, erythema and aphthous ulcerations was found on the greater curvature of the stomach. Biopsies were taken with a cold forceps for Helicobacter pylori testing. The exam of the duodenum was otherwise normal. Impression: - Z-line variable, 45 cm from the incisors. - Mucosal changes suspicious for gastritis. Biopsied. - Multiple biopsies were obtained at the gastroesophageal junction. - The examination was otherwise normal. Recommendation: - Patient has a contact number available for emergencies. The signs and symptoms of potential delayed complications were discussed with the patient. Return to normal activities tomorrow. Written discharge instructions were provided to the patient. - High fiber diet. - Discharge patient to home. - Continue present medications. - Await pathology results. - Telephone GI clinic for pathology results in 1 week. - Use sucralfate tablets 1 gram PO BID. - Return to referring physician. - The findings and recommendations were discussed with the patient's family. Procedure Code(s): --- Professional --- 39559, Esophagogastroduodenoscopy, flexible, transoral; with biopsy, single or multiple Diagnosis Code(s): --- Professional --- K22.8, Other specified diseases of esophagus K31.89, Other diseases of stomach and duodenum R10.12, Left upper quadrant pain R12, Heartburn CPT copyright 2019 [employer]. All rights reserved. The codes documented in this report are preliminary and upon store coordinator review may be revised to meet current compliance requirements. Jake Duffy MD Jake Duffy MD 04/02/2021 11:20:53 AM Electronically signed by Jake Duffy MD Number of Addenda: 0 Note Initiated On: 04/02/2021 11:06 AM Estimated Blood Loss: Estimated blood loss: none.
--- NOTE | 2021-04-02 11:45 | ROOR ---
Patient Name: Neel Varner Procedure Date: 04/02/2021 11:06 AM Date of : 1945 Age: 76 Room: [facility] Gender: Male Note Status: Finalized Procedure: Total Colonoscopy to Cecum Indications: High risk colon cancer surveillance: Personal history of colonic polyps, Last colonoscopy: 2014 Providers: Jake Duffy MD Referring MD: SHERRON BLANCHARD JR, MD Requesting Provider: Medicines: Monitored Anesthesia Care Complications: No immediate complications. Procedure: Pre-Anesthesia Assessment: - The heart rate, respiratory rate, oxygen saturations, blood pressure, adequacy of pulmonary ventilation, and response to care were monitored throughout the procedure. The Colonoscope was introduced through the anus and advanced to the cecum, identified by appendiceal orifice and ileocecal valve. The colonoscopy was performed without difficulty. The patient tolerated the procedure well. The quality of the bowel preparation was fair. Findings: The perianal and digital rectal examinations were normal. Non-bleeding internal hemorrhoids were found during retroflexion. The hemorrhoids were small and Grade I (internal hemorrhoids that do not prolapse). No other significant abnormalities were identified in a careful examination of the remainder of the colon. The exam was otherwise without abnormality on direct and retroflexion views. Impression: - Preparation of the colon was fair. - Non-bleeding internal hemorrhoids. - The examination was otherwise normal on direct and retroflexion views. - No specimens collected. - The exam was otherwise normal to the cecum. Recommendation: - Patient has a contact number available for emergencies. The signs and symptoms of potential delayed complications were discussed with the patient. Return to normal activities tomorrow. Written discharge instructions were provided to the patient. - Discharge patient to home. - Continue present medications. - Repeat colonoscopy is not recommended due to current age (66 years or older) for surveillance based on pathology results. - Return to referring physician. - High fiber diet. - The findings and recommendations were discussed with the patient's family. Procedure Code(s): --- Professional --- G0105, Colorectal cancer screening; colonoscopy on individual at high risk Diagnosis Code(s): --- Professional --- Z86.010, Personal history of colonic polyps K64.0, First degree hemorrhoids CPT copyright 2019 [employer]. All rights reserved. The codes documented in this report are preliminary and upon licensed surveyor review may be revised to meet current compliance requirements. Jake Duffy MD Jake Duffy MD 04/02/2021 11:45:27 AM Electronically signed by Jake Duffy MD Number of Addenda: 0 Note Initiated On: 04/02/2021 11:06 AM Estimated Blood Loss: Estimated blood loss: none.
[2021-04-02 12:05] VITALS: BP 119/59
== END 2021-04-02 12:38 | disposition home or self-care (01) ==
LOC: M OPP 08:30
PROVIDERS: ATTEND Internal Medicine Gastroenterology
DX: Z12.11 Encounter for screening for malignant neoplasm of colon (principal); Z86.010 Personal history of colon polyps; K64.0 First degree hemorrhoids; K22.8 Other specified diseases of esophagus; K29.70 Gastritis, unspecified, without bleeding; K31.89 Other diseases of stomach and duodenum; R10.12 Left upper quadrant pain; R12 Heartburn; Z85.46 Personal history of malignant neoplasm of prostate; Z92.3 Personal history of irradiation; Z92.21 Personal history of antineoplastic chemotherapy; Z79.899 Other long term (current) drug therapy
CPT/HCPCS: 43239; 88305; G0105; J3010

== ENCOUNTER → 2021-07-21 | Outpatient (REF) | payer MEDICARE, OTHER ==
[~2021-07-21] MED LIST changes: -NS 1,000 ML IV ONE
[2021-07-21 12:27] LABS: DIGOXIN LEVEL 0.8 NG/ML (0.5-2.0)
[2021-07-22 11:56] LABS: TOTAL PROTEIN 6.3 GM/DL (6.4-8.2)
[2021-07-22 12:05] LABS: FOLATE 23.4 NG/ML
== END ==
LOC: M LAB REF 11:02
PROVIDERS: ATTEND Internal Medicine
DX: I48.0 Paroxysmal atrial fibrillation (principal); G60.9 Hereditary and idiopathic neuropathy, unspecified

== ENCOUNTER 2021-10-16 11:51 | Inpatient (IN) | payer MEDICARE, OTHER ==
[~2021-10-16] VITALS: Ht 177.8 cm; Wt 98.5 kg
[2021-10-16] MEDS ORDERED: DIGO0.253 PO (12:16)
[2021-10-16] MEDS ORDERED: SUCR1TAB56 PO (12:16)
[2021-10-16 12:54] LABS: BASO % 0.3 % (0.0-1.0); EOS % 0.1 % (0.0-3.0); HEMATOCRIT 38.1 % (42.0-52.0); LYMPH # 0.6 10^3/uL (1.5-5.0); LYMPH % 7.9 % (24.0-44.0); MEAN CORPUSCULAR HEMOGLOBIN 28.8 pg (27.0-33.0); MEAN CORPUSCULAR HGB CONC 34.1 g/dl (32.0-36.5); MEAN CORPUSCULAR VOLUME 84.5 fl (80.0-96.0); MONO # 0.8 10^3/uL (0.0-0.8); MONO % 10.9 % (2.0-8.0); NEUTROPHILS # 6.1 10^3/uL (1.5-8.5); NEUTROPHILS % 80.4 % (36.0-66.0); PLATELET COUNT, AUTOMATED 222 10^3/uL (150-450); RED BLOOD COUNT 4.51 10^6/uL (4.30-6.10); WHITE BLOOD COUNT 7.6 10^3/uL (4.0-10.0)
[2021-10-16 13:04] LABS: INR 1.41; PARTIAL THROMBOPLASTIN TIME 40.2 SECONDS (25.9-37.0); PROTHROMBIN TIME 17.7 SECONDS (12.7-14.5)
[2021-10-16] MEDS ORDERED: MORPHINE 4 MG/ML 1ML VIAL/SYRINGE (J2270) IV ONE ×2 (13:10→16:20)
[2021-10-16 13:22] LABS: ALBUMIN 3.8 GM/DL (3.2-5.2); ALT/SGPT 24 U/L (12-78); BILIRUBIN,DIRECT 0.3 MG/DL (0.0-0.2); BILIRUBIN,TOTAL 1.1 MG/DL (0.2-1.0); BLOOD UREA NITROGEN 32 MG/DL (7-18); CALCIUM LEVEL 9.3 MG/DL (8.8-10.2); CARBON DIOXIDE LEVEL 22 MEQ/L (21-32); CHLORIDE LEVEL 104 MEQ/L (98-107); CREATININE FOR GFR 0.78 MG/DL (0.70-1.30); FREE T4 1.38 NG/DL (0.76-1.46); GLOMERULAR FILTRATION RATE > 60.0 (>42); GLUCOSE, FASTING 107 MG/DL (70-100); MAGNESIUM LEVEL 2.2 MG/DL (1.8-2.4); PHOSPHORUS LEVEL 3.6 MG/DL (2.5-4.9); POTASSIUM SERUM 3.9 MEQ/L (3.5-5.1); SODIUM LEVEL 136 MEQ/L (136-145); TOTAL PROTEIN 6.9 GM/DL (6.4-8.2)
[2021-10-16 17:10] LABS: RSV AMPLIFICATION NEGATIVE (NEGATIVE)
[2021-10-16] MEDS ORDERED: MOM 30ML SUSPENSION UDC PO PRN (18:05)
[2021-10-16] MEDS ORDERED: COLA100C5 PO (18:16)
[2021-10-16] MEDS ORDERED: CALC1TAB74 PO (18:16)
[2021-10-16] MEDS ORDERED: HOME MED LIST COMPLETE! XX SCH (18:20)
[2021-10-16] MEDS ORDERED: ACETAMINOPHEN 650MG ER TAB (TYLENOL ARTHRITIS) PO PRN (19:00)
[2021-10-16 19:30] VITALS: BP 163/85
[2021-10-16] MEDS: SUCRALFATE 1 GM TAB PO SCH (20:48)
[2021-10-16] MEDS: APIXABAN 5 MG TAB (ELIQUIS) PO SCH (20:48)
[2021-10-16] MEDS: DOCUSATE SODIUM 100MG CAPSULE PO SCH (20:48)
[2021-10-16] MEDS: NAPROXEN 250 MG TAB PO SCH (20:49)
[2021-10-16 20:50] VITALS: BP 163/85
[2021-10-16] MEDS ORDERED: ATORVASTATIN 10 MG TAB PO SCH (21:00)
[2021-10-16] MEDS ORDERED: SENNA 8.6 MG TAB (SENOKOT) PO SCH (21:00)
[2021-10-16] MEDS ORDERED: SPIRONOLACTONE 12.5MG PER 1/2 TABLET PO SCH (21:00)
[2021-10-16] MEDS ORDERED: DIGOXIN 0.25 MG TAB PO SCH (21:00)
[2021-10-16] MEDS: FLECAINIDE 50MG TABLET PO SCH (22:17)
[2021-10-17 05:45] VITALS: BP 145/60
[2021-10-17] MEDS: SUCRALFATE 1 GM TAB PO SCH (08:38)
[2021-10-17] MEDS: DOCUSATE SODIUM 100MG CAPSULE PO SCH (08:38)
[2021-10-17] MEDS: APIXABAN 5 MG TAB (ELIQUIS) PO SCH (08:38)
[2021-10-17] MEDS: NAPROXEN 250 MG TAB PO SCH (08:39)
[2021-10-17] MEDS: FLECAINIDE 50MG TABLET PO SCH (08:40)
[2021-10-17] MEDS: PERCOCET 5MG/325MG TAB PO PRN ×2 (08:41→13:48)
[2021-10-17] MEDS ORDERED: PERCOCET PO (12:26)
[2021-10-17] MEDS ORDERED: SENN18TA PO (12:26)
[2021-10-17 14:00] VITALS: BP 133/60
== END 2021-10-17 15:40 | disposition home or self-care (01) | DRG 552 ==
LOC: M ED 11:51 → M ED INP 18:01 → M MS5PR 19:43
PROVIDERS: ADMIT Internal Medicine Nephrology; ATTEND Internal Medicine Nephrology
DX: S22.081A Stable burst fracture of T11-T12 vertebra, initial encounter for closed fracture (principal); I11.9 Hypertensive heart disease without heart failure; I48.91 Unspecified atrial fibrillation; E78.5 Hyperlipidemia, unspecified; K21.9 Gastro-esophageal reflux disease without esophagitis; D64.9 Anemia, unspecified; M19.90 Unspecified osteoarthritis, unspecified site; G47.33 Obstructive sleep apnea (adult) (pediatric); I35.0 Nonrheumatic aortic (valve) stenosis; Z85.46 Personal history of malignant neoplasm of prostate; Z92.3 Personal history of irradiation; N30.81 Other cystitis with hematuria; W18.30XA Fall on same level, unspecified, initial encounter; Y92.009 Unspecified place in unspecified non-institutional (private) residence as the place of occurrence of the external cause; Z79.899 Other long term (current) drug therapy; K22.2 Esophageal obstruction

== ENCOUNTER → 2021-10-28 | Outpatient (CLI) | payer MEDICARE, OTHER ==
[~2021-10-28] MED LIST changes: +CALC1TAB74 PO; +SENN18TA PO; +SUCR1TAB56 PO
== END ==
LOC: M SOG 13:06
PROVIDERS: ATTEND Orthopaedic Surgery
DX: S22.081A Stable burst fracture of T11-T12 vertebra, initial encounter for closed fracture (principal); X58.XXXA Exposure to other specified factors, initial encounter; Y92.9 Unspecified place or not applicable

== ENCOUNTER 2021-11-28 12:49 | Outpatient (RCR) | payer MEDICARE, OTHER | END 2021-12-01 | LOC: M PT 12:49 | PROVIDERS: ATTEND Orthopaedic Surgery | DX: S22.081A Stable burst fracture of T11-T12 vertebra, initial encounter for closed fracture (principal); X58.XXXA Exposure to other specified factors, initial encounter; Y92.9 Unspecified place or not applicable ==

== ENCOUNTER → 2021-12-04 | Outpatient (CLI) | payer MEDICARE, OTHER | LOC: M WHC 14:37 | PROVIDERS: ATTEND Internal Medicine | DX: Z13.820 Encounter for screening for osteoporosis (principal); M81.0 Age-related osteoporosis without current pathological fracture ==

== ENCOUNTER → 2021-12-09 | Outpatient (CLI) | payer MEDICARE, OTHER | LOC: M SOG 08:51 | PROVIDERS: ATTEND Orthopaedic Surgery | DX: S22.081D Stable burst fracture of T11-T12 vertebra, subsequent encounter for fracture with routine healing (principal) ==

== ENCOUNTER → 2021-12-29 | Outpatient (RCR) | payer MEDICARE, OTHER | LOC: M PT 12-03 09:01 | PROVIDERS: ATTEND Orthopaedic Surgery | DX: S22.081A Stable burst fracture of T11-T12 vertebra, initial encounter for closed fracture (principal); X58.XXXA Exposure to other specified factors, initial encounter; Y92.9 Unspecified place or not applicable ==

== ENCOUNTER 2022-01-16 09:30 | Outpatient (RCR) | payer MEDICARE, OTHER | END 2022-01-29 | LOC: M PT 09:30 | PROVIDERS: ATTEND Orthopaedic Surgery | DX: S22.081A Stable burst fracture of T11-T12 vertebra, initial encounter for closed fracture (principal) ==

== ENCOUNTER → 2022-04-02 | Outpatient (CLI) | payer MEDICARE, OTHER ==
[2022-04-02 13:03] LABS: BASO % 0.4 % (0.0-1.0); EOS % 0.7 % (0.0-3.0); HEMATOCRIT 40.1 % (42.0-52.0); HEMOGLOBIN 13.2 g/dl (13.5-17.5); LYMPH # 0.7 10^3/uL (1.5-5.0); LYMPH % 12.4 % (24.0-44.0); MEAN CORPUSCULAR HEMOGLOBIN 28.8 pg (27.0-33.0); MEAN CORPUSCULAR HGB CONC 32.9 g/dl (32.0-36.5); MEAN CORPUSCULAR VOLUME 87.4 fl (80.0-96.0); MONO # 0.6 10^3/uL (0.0-0.8); MONO % 10.4 % (2.0-8.0); NEUTROPHILS # 4.3 10^3/uL (1.5-8.5); NEUTROPHILS % 75.9 % (36.0-66.0); PLATELET COUNT, AUTOMATED 189 10^3/uL (150-450); RED BLOOD COUNT 4.59 10^6/uL (4.30-6.10); WHITE BLOOD COUNT 5.7 10^3/uL (4.0-10.0)
[2022-04-02 13:26] LABS: C REACTIVE PROTEIN QUANTITATIV < 0.30 MG/DL (0.00-0.30); URIC ACID 4.6 MG/DL (3.5-7.2)
[2022-04-02 13:32] LABS: ERYTHROCYTE SEDIMENTATION RATE 7 mm/hr (0-20)
== END ==
LOC: M LAB 10:44
PROVIDERS: ATTEND Physician Assistant
DX: M70.22 Olecranon bursitis, left elbow (principal); Z79.899 Other long term (current) drug therapy

== ENCOUNTER → 2022-05-29 | Outpatient (REF) | payer MEDICARE, OTHER ==
[2022-05-29 17:39] LABS: AMORPHOUS SEDIMENT SMALL (NEGATIVE); APPEARANCE, URINE HAZY (CLEAR); BACTERIA, URINE AUTO NEGATIVE (NEGATIVE); BILIRUBIN, URINE AUTO NEGATIVE (NEGATIVE); BLOOD, URINE BLOOD NEGATIVE (NEGATIVE); COLOR, URINE YELLOW (YELLOW); GLUCOSE, URINE (UA) AUTO NEGATIVE (NEGATIVE); KETONE, URINE AUTO NEGATIVE (NEGATIVE); LEUKOCYTE ESTERASE, URINE AUTO NEGATIVE (NEGATIVE); MUCUS, URINE SMALL (NEGATIVE); NITRITE, URINE AUTO NEGATIVE (NEGATIVE); PROTEIN, URINE AUTO NEGATIVE (NEGATIVE); RBC, URINE AUTO 0 /HPF (0-3); SPECIFIC GRAVITY URINE AUTO 1.016 (1.002-1.035); SQUAMOUS EPITHELIAL CELL UR AU 0 /HPF (0-6); UROBILINOGEN, URINE AUTO 0.2 mg/dL (0.0-2.0); WBC, URINE AUTO 0 /HPF (0-3)
== END ==
LOC: M SMT 16:45
PROVIDERS: ATTEND Urology
DX: R31.0 Gross hematuria (principal)

== ENCOUNTER → 2023-02-01 | Outpatient (REF) | payer MEDICARE, OTHER ==
[~2023-02-01] MED LIST changes: +FISH10005 PO; -FISH7.5C PO
== END ==
LOC: M LAB REF 12:09
PROVIDERS: ATTEND Internal Medicine
DX: I48.0 Paroxysmal atrial fibrillation (principal)

== ENCOUNTER → 2023-02-03 | Outpatient (CLI) | payer MEDICARE, OTHER | LOC: M RAD 10:28 | PROVIDERS: ATTEND Internal Medicine | DX: R05.9 Cough, unspecified (principal); R91.8 Other nonspecific abnormal finding of lung field ==

== ENCOUNTER → 2023-02-10 | Outpatient (CLI) | payer MEDICARE, OTHER ==
[~2023-02-10] MED LIST changes: +E-Z-GAS II EFFERVESCENT PACKET (SODIUM BICARB./CITRIC ACID/SIMETHICONE) As Ordered ONE; +E-Z-HD 98% w/w 340GM SUSP BTL As Ordered ONE; +E-Z-PAQUE 96% w/w SUSP 176GM BTL As Ordered ONE
== END ==
LOC: M RAD 10:10
PROVIDERS: ATTEND Internal Medicine
DX: R13.10 Dysphagia, unspecified (principal)

== ENCOUNTER → 2023-08-09 | Outpatient (REF) | payer MEDICARE, OTHER ==
[~2023-08-09] MED LIST changes: -E-Z-GAS II EFFERVESCENT PACKET (SODIUM BICARB./CITRIC ACID/SIMETHICONE) As Ordered ONE; -E-Z-HD 98% w/w 340GM SUSP BTL As Ordered ONE; -E-Z-PAQUE 96% w/w SUSP 176GM BTL As Ordered ONE; +SENN-111 PO; -SENN18TA PO
== END ==
LOC: M LAB REF 11:31
PROVIDERS: ATTEND Internal Medicine
DX: I48.0 Paroxysmal atrial fibrillation (principal)

== ENCOUNTER 2023-08-14 12:37 | Emergency (ER) | payer MEDICARE, OTHER ==
[~2023-08-14] VITALS: Ht 188 cm; Wt 96.4 kg
[2023-08-14] MEDS ORDERED: ACET-683 PO (12:49)
[2023-08-14] MEDS ORDERED: NORCO, ANEXSIA 5/325MG TABLET (HYDROcodone/ACETAMINOPHEN) PO ONE (14:35)
[2023-08-14] MEDS ORDERED: HYDR-3713 PO (15:06)
[2023-08-14] MEDS ORDERED: MIRA3350 PO (15:06)
[2023-08-14 15:15] VITALS: BP 119/57; TEMP 97.4; O2SAT 96
== END 2023-08-14 15:17 | disposition home or self-care (01) ==
LOC: M ED 12:37
DX: S32.592A Other specified fracture of left pubis, initial encounter for closed fracture (principal); S32.512A Fracture of superior rim of left pubis, initial encounter for closed fracture; W01.0XXA Fall on same level from slipping, tripping and stumbling without subsequent striking against object, initial encounter; I10 Essential (primary) hypertension; K21.9 Gastro-esophageal reflux disease without esophagitis; G47.33 Obstructive sleep apnea (adult) (pediatric); C61 Malignant neoplasm of prostate; M54.50 Low back pain, unspecified; Z79.811 Long term (current) use of aromatase inhibitors; Z79.810 Long term (current) use of selective estrogen receptor modulators (SERMs); Z79.01 Long term (current) use of anticoagulants; Z79.899 Other long term (current) drug therapy

== ENCOUNTER 2023-08-24 14:38 | Observation (INO) | payer MEDICARE, OTHER ==
[~2023-08-24] VITALS: Ht 188 cm; Wt 101.9 kg
[~2023-08-24 14:38] MED LIST changes: +ACET-683 PO; +MIRA3350 PO
[2023-08-24 15:15] LABS: VENOUS BASE EXCESS -3.8 (-2.0-2.0); VENOUS HCO3 21.4 MMOL/L (23.0-27.0); VENOUS PARTIAL PRESSURE CO2 39.3 mmHg (38.0-50.0); VENOUS PH 7.354 UNITS (7.330-7.430); VENOUS STANDARD HCO3 20.9 MMOL/L; VENOUS TOTAL CO2 22.6 MMOL/L (24.0-28.0)
[2023-08-24] MEDS ORDERED: cefTRIAXone SOD 2 GM in D5W MINI-BAG PLUS 50 ML IV ONE (15:15)
[2023-08-24] MEDS ORDERED: NS 3,060 ML in IV 1 EA IV ONE (15:15)
[2023-08-24 15:21] LABS: BASO % 0.1 % (0.0-1.0); EOS % 0.1 % (0.0-3.0); HEMATOCRIT 33.1 % (42.0-52.0); LYMPH # 0.8 10^3/uL (1.5-5.0); LYMPH % 7.8 % (24.0-44.0); MEAN CORPUSCULAR HEMOGLOBIN 29.3 pg (27.0-33.0); MEAN CORPUSCULAR HGB CONC 33.2 g/dl (32.0-36.5); MEAN CORPUSCULAR VOLUME 88.3 fl (80.0-96.0); MONO # 0.6 10^3/uL (0.0-0.8); MONO % 6.3 % (2.0-8.0); NEUTROPHILS # 8.5 10^3/uL (1.5-8.5); NEUTROPHILS % 85.2 % (36.0-66.0); PLATELET COUNT, AUTOMATED 269 10^3/uL (150-450); RED BLOOD COUNT 3.75 10^6/uL (4.30-6.10)
[2023-08-24 15:42] LABS: INR 1.55; PROTHROMBIN TIME 18.2 SECONDS (12.5-14.5)
[2023-08-24 15:43] LABS: PARTIAL THROMBOPLASTIN TIME 27.2 SECONDS (24.8-34.2)
[2023-08-24 15:49] LABS: ALBUMIN 3.3 G/DL (3.2-5.2); ALKALINE PHOSPHATASE 88 U/L (46-116); ALT/SGPT 13 U/L (7.0-40); AMYLASE 58 U/L (30-118); AST/SGOT 29 U/L (<34); BILIRUBIN,DIRECT 0.2 MG/DL (<0.4); BILIRUBIN,TOTAL 0.7 MG/DL (0.3-1.2); BLOOD UREA NITROGEN 35 MG/DL (9-23); CALCIUM LEVEL 8.5 MG/DL (8.3-10.6); CARBON DIOXIDE LEVEL 22 MMOL/L (20-31); CHLORIDE LEVEL 103 MMOL/L (98-107); CREATININE FOR GFR 0.83 MG/DL (0.70-1.30); GLOMERULAR FILTRATION RATE > 60.0 (>35); GLUCOSE, FASTING 134 MG/DL (74-106); POTASSIUM SERUM 4.8 MMOL/L (3.5-5.1); SODIUM LEVEL 135 MMOL/L (136-145); TOTAL PROTEIN 5.8 G/DL (5.7-8.2)
[2023-08-24 16:01] LABS: PROCALCITONIN <0.04 ng/ml
[2023-08-24 16:18] LABS: APPEARANCE, URINE CLEAR (CLEAR); BACTERIA, URINE AUTO NEGATIVE (NEGATIVE); BILIRUBIN, URINE AUTO NEGATIVE (NEGATIVE); BLOOD, URINE BLOOD NEGATIVE (NEGATIVE); COLOR, URINE YELLOW (YELLOW); GLUCOSE, URINE (UA) AUTO NEGATIVE (NEGATIVE); KETONE, URINE AUTO NEGATIVE (NEGATIVE); LEUKOCYTE ESTERASE, URINE AUTO NEGATIVE (NEGATIVE); MUCUS, URINE SMALL (NEGATIVE); NITRITE, URINE AUTO NEGATIVE (NEGATIVE); PROTEIN, URINE AUTO NEGATIVE (NEGATIVE); RBC, URINE AUTO 1 /HPF (0-3); SPECIFIC GRAVITY URINE AUTO 1.015 (1.002-1.035); SQUAMOUS EPITHELIAL CELL UR AU 0 /HPF (0-6); WBC, URINE AUTO 1 /HPF (0-3)
[2023-08-24] MEDS ORDERED: NS 1,000 ML IV ONE (17:10)
[2023-08-24] MEDS ORDERED: PERCOCET 5MG/325MG TAB PO ONE (17:10)
[2023-08-24] MEDS ORDERED: METOCLOPRAMIDE INJ 10MG/2ML VIAL IV PRN (19:55)
[2023-08-24] MEDS ORDERED: MED REC IN PROGRESS XX SCH (21:25)
[2023-08-24] MEDS ORDERED: NORCO, ANEXSIA 5/325MG TABLET (HYDROcodone/ACETAMINOPHEN) PO PRN (21:35)
[2023-08-24] MEDS ORDERED: HOME MED LIST COMPLETE! XX SCH (21:55)
[2023-08-24 22:15] VITALS: BP 131/60; TEMP 98.5; O2SAT 96
[2023-08-25] VITALS: BP 133/63; TEMP 98.5; O2SAT 96
[2023-08-25] MEDS: APIXABAN 5 MG TAB (ELIQUIS) PO SCH ×2 (00:13→09:15)
[2023-08-25 04:55] VITALS: BP 126/59; TEMP 98.6; O2SAT 92
[2023-08-25 04:57] LABS: BLOOD UREA NITROGEN 26 MG/DL (9-23); CALCIUM LEVEL 8.2 MG/DL (8.3-10.6); CARBON DIOXIDE LEVEL 24 MMOL/L (20-31); CHLORIDE LEVEL 106 MMOL/L (98-107); CREATININE FOR GFR 0.76 MG/DL (0.70-1.30); GLOMERULAR FILTRATION RATE > 60.0 (>35); GLUCOSE, FASTING 100 MG/DL (74-106); POTASSIUM SERUM 4.1 MMOL/L (3.5-5.1); SODIUM LEVEL 138 MMOL/L (136-145)
[2023-08-25] MEDS ORDERED: DOCUSATE SODIUM 100MG CAPSULE PO PRN (07:10)
[2023-08-25] MEDS ORDERED: MIRALAX *UNIT DOSE* 17GM PACKET PO PRN (07:10)
[2023-08-25 07:28] LABS: DIGOXIN LEVEL 0.5 NG/ML (0.8-2.0)
[2023-08-25 07:49] VITALS: BP 145/83; TEMP 98.9; O2SAT 92
[2023-08-25] MEDS ORDERED: ISOVUE-370 76% 100ML VIAL As Ordered ONE (07:56)
[2023-08-25] MEDS ORDERED: ACETAMINOPHEN TAB 650MG DOSE (2X325MG) PO PRN (08:10)
[2023-08-25] MEDS ORDERED: FLECAINIDE 50MG TABLET PO SCH (09:00)
[2023-08-25] MEDS ORDERED: CALCIUM/VITAMIN D 500 MG TAB PO SCH (09:00)
[2023-08-25] MEDS ORDERED: LACTOBACILLUS ACIDOPHILUS CAP (BACID) PO SCH (09:00)
[2023-08-25] MEDS ORDERED: OMEGA-3 1000MG CAPSULE PO SCH (09:00)
[2023-08-25] MEDS ORDERED: MULTIVITAMINS/MINERALS THERAP 1 TAB PO SCH (09:00)
[2023-08-25] MEDS ORDERED: SUCRALFATE 1 GM TAB PO SCH (09:00)
[2023-08-25] MEDS ORDERED: PANTOPRAZOLE 40MG TAB (PROTONIX) PO SCH (09:00)
[2023-08-25 10:39] LABS: BASO % 0.1 % (0.0-1.0); EOS % 0.1 % (0.0-3.0); HEMATOCRIT 31.2 % (42.0-52.0); HEMOGLOBIN 10.3 g/dl (13.5-17.5); LYMPH # 0.5 10^3/uL (1.5-5.0); LYMPH % 6.3 % (24.0-44.0); MEAN CORPUSCULAR HEMOGLOBIN 28.9 pg (27.0-33.0); MEAN CORPUSCULAR VOLUME 87.4 fl (80.0-96.0); MONO # 0.8 10^3/uL (0.0-0.8); MONO % 10.1 % (2.0-8.0); NEUTROPHILS # 6.4 10^3/uL (1.5-8.5); NEUTROPHILS % 83.3 % (36.0-66.0); PLATELET COUNT, AUTOMATED 256 10^3/uL (150-450); RED BLOOD COUNT 3.57 10^6/uL (4.30-6.10); WHITE BLOOD COUNT 7.7 10^3/uL (4.0-10.0)
[2023-08-25 11:22] VITALS: BP 103/55; TEMP 97.8; O2SAT 94
[2023-08-25] MEDS ORDERED: DIGOXIN 0.25 MG TAB PO SCH (21:00)
[2023-08-25] MEDS ORDERED: ATORVASTATIN 10 MG TAB PO SCH (21:00)
[2023-08-25] MEDS ORDERED: SENNA 8.6 MG TAB (SENOKOT) PO SCH (21:00)
== END 2023-08-25 15:35 ==
LOC: M ED 14:38 → EDSEX 14:38 → EDBD 14:38 → M ED INP 14:39 → M PCU 22:19
PROVIDERS: ADMIT Internal Medicine; ATTEND Internal Medicine
DX: R55 Syncope and collapse (principal); I48.0 Paroxysmal atrial fibrillation; I30.0 Acute nonspecific idiopathic pericarditis; I31.39 Other pericardial effusion (noninflammatory); G47.33 Obstructive sleep apnea (adult) (pediatric); I10 Essential (primary) hypertension; E78.5 Hyperlipidemia, unspecified; K21.9 Gastro-esophageal reflux disease without esophagitis; Z79.01 Long term (current) use of anticoagulants; Z85.46 Personal history of malignant neoplasm of prostate; I95.1 Orthostatic hypotension; Z79.899 Other long term (current) drug therapy; S32.519D Fracture of superior rim of unspecified pubis, subsequent encounter for fracture with routine healing

== ENCOUNTER 2023-08-25 13:56 | Inpatient (IN) | payer MEDICARE, OTHER ==
[~2023-08-25] VITALS: Ht 182.9 cm; Wt 97.1 kg
[2023-08-25] MEDS ORDERED: DOCUSATE SODIUM 100MG CAPSULE PO PRN (15:30)
[2023-08-25] MEDS ORDERED: MIRALAX *UNIT DOSE* 17GM PACKET PO PRN (15:30)
[2023-08-25 15:40] VITALS: BP 133/63; TEMP 98.4; O2SAT 96
[2023-08-25] MEDS: ACETAMINOPHEN 500 MG TAB PO SCH ×2 (16:54→21:36)
[2023-08-25 19:55] VITALS: BP 127/61; TEMP 98.7; O2SAT 95
[2023-08-25] MEDS: ATORVASTATIN 10 MG TAB PO SCH (21:28)
[2023-08-25] MEDS: SENNA 8.6 MG TAB (SENOKOT) PO SCH (21:30)
[2023-08-25] MEDS: DIGOXIN 0.25 MG TAB PO SCH (21:30)
[2023-08-25] MEDS: APIXABAN 5 MG TAB (ELIQUIS) PO SCH (21:30)
[2023-08-25] MEDS: FLECAINIDE 50MG TABLET PO SCH (21:30)
[2023-08-25] MEDS: PANTOPRAZOLE 40MG TAB (PROTONIX) PO SCH (21:31)
[2023-08-26] MEDS: ACETAMINOPHEN 500 MG TAB PO SCH ×4 (04:13→21:07)
[2023-08-26 06:35] VITALS: BP 127/59; TEMP 97.7; O2SAT 96
[2023-08-26] MEDS ORDERED: MULTIVITAMINS/MINERALS THERAP 1 TAB PO SCH (09:00)
[2023-08-26] MEDS: LACTOBACILLUS ACIDOPHILUS CAP (BACID) PO SCH (09:19)
[2023-08-26] MEDS: SUCRALFATE 1 GM TAB PO SCH (09:19)
[2023-08-26] MEDS: PANTOPRAZOLE 40MG TAB (PROTONIX) PO SCH ×2 (09:19→21:11)
[2023-08-26] MEDS: OMEGA-3 1000MG CAPSULE PO SCH (09:19)
[2023-08-26] MEDS: FLECAINIDE 50MG TABLET PO SCH ×2 (09:19→21:07)
[2023-08-26] MEDS: APIXABAN 5 MG TAB (ELIQUIS) PO SCH ×2 (09:19→21:07)
[2023-08-26] MEDS: CALCIUM/VITAMIN D 500 MG TAB PO SCH (09:20)
[2023-08-26] MEDS: MULTIVITAMINS/MINERALS THERAP 1 TAB PO SCH (09:20)
[2023-08-26 14:00] VITALS: BP 141/67; TEMP 98.6; O2SAT 95
[2023-08-26] MEDS ORDERED: ACETAMINOPHEN 500 MG TAB PO PRN (16:00)
[2023-08-26 20:00] VITALS: BP 142/65; TEMP 98.9; O2SAT 98
[2023-08-26] MEDS: SENNA 8.6 MG TAB (SENOKOT) PO SCH (21:00)
[2023-08-26] MEDS: ATORVASTATIN 10 MG TAB PO SCH (21:07)
[2023-08-26] MEDS: DIGOXIN 0.25 MG TAB PO SCH (21:09)
[2023-08-27] MEDS: ACETAMINOPHEN 500 MG TAB PO SCH ×3 (05:47→21:59)
[2023-08-27 06:00] VITALS: BP 132/67; TEMP 97.9; O2SAT 96
[2023-08-27 07:27] LABS: BASO % 0.3 % (0.0-1.0); EOS # 0.1 10^3/uL (0.0-0.5); EOS % 1.7 % (0.0-3.0); HEMATOCRIT 33.3 % (42.0-52.0); HEMOGLOBIN 11.3 g/dl (13.5-17.5); LYMPH # 0.6 10^3/uL (1.5-5.0); MEAN CORPUSCULAR HEMOGLOBIN 29.2 pg (27.0-33.0); MEAN CORPUSCULAR HGB CONC 33.9 g/dl (32.0-36.5); MONO # 0.7 10^3/uL (0.0-0.8); MONO % 10.4 % (2.0-8.0); NEUTROPHILS % 78.3 % (36.0-66.0); PLATELET COUNT, AUTOMATED 262 10^3/uL (150-450); RED BLOOD COUNT 3.87 10^6/uL (4.30-6.10); WHITE BLOOD COUNT 6.4 10^3/uL (4.0-10.0)
[2023-08-27 08:17] LABS: BLOOD UREA NITROGEN 20 MG/DL (9-23); CALCIUM LEVEL 8.5 MG/DL (8.3-10.6); CARBON DIOXIDE LEVEL 24 MMOL/L (20-31); CHLORIDE LEVEL 105 MMOL/L (98-107); GLOMERULAR FILTRATION RATE > 60.0 (>35); GLUCOSE, FASTING 95 MG/DL (74-106); POTASSIUM SERUM 4.2 MMOL/L (3.5-5.1); SODIUM LEVEL 139 MMOL/L (136-145)
[2023-08-27] MEDS: PANTOPRAZOLE 40MG TAB (PROTONIX) PO SCH ×2 (08:36→21:58)
[2023-08-27] MEDS: OMEGA-3 1000MG CAPSULE PO SCH (08:37)
[2023-08-27] MEDS: APIXABAN 5 MG TAB (ELIQUIS) PO SCH ×2 (08:37→22:04)
[2023-08-27] MEDS: SUCRALFATE 1 GM TAB PO SCH (08:37)
[2023-08-27] MEDS: FLECAINIDE 50MG TABLET PO SCH ×2 (08:37→22:00)
[2023-08-27] MEDS: LACTOBACILLUS ACIDOPHILUS CAP (BACID) PO SCH (08:37)
[2023-08-27] MEDS: CALCIUM/VITAMIN D 500 MG TAB PO SCH (08:37)
[2023-08-27] MEDS: MULTIVITAMINS/MINERALS THERAP 1 TAB PO SCH (08:40)
[2023-08-27 11:31] VITALS: O2SAT 96
[2023-08-27 15:18] VITALS: BP 127/59; TEMP 98.9; O2SAT 95
[2023-08-27 20:00] VITALS: BP 130/62; TEMP 98.5; O2SAT 95
[2023-08-27] MEDS: DICLOFENAC EPOLAMINE 1.3% PATCH TOP SCH (21:58)
[2023-08-27] MEDS: SENNA 8.6 MG TAB (SENOKOT) PO SCH (21:58)
[2023-08-27] MEDS: ATORVASTATIN 10 MG TAB PO SCH (22:00)
[2023-08-27] MEDS: DIGOXIN 0.25 MG TAB PO SCH (22:03)
[2023-08-28] MEDS: ACETAMINOPHEN 500 MG TAB PO SCH ×3 (05:25→17:49)
[2023-08-28] MEDS: DICLOFENAC EPOLAMINE 1.3% PATCH TOP SCH ×2 (05:26→17:49)
[2023-08-28 06:00] VITALS: BP 132/60; TEMP 98.1; O2SAT 97
[2023-08-28] MEDS: SUCRALFATE 1 GM TAB PO SCH (09:23)
[2023-08-28] MEDS: LACTOBACILLUS ACIDOPHILUS CAP (BACID) PO SCH (09:24)
[2023-08-28] MEDS: APIXABAN 5 MG TAB (ELIQUIS) PO SCH ×2 (09:24→20:45)
[2023-08-28] MEDS: OMEGA-3 1000MG CAPSULE PO SCH (09:24)
[2023-08-28] MEDS: MULTIVITAMINS/MINERALS THERAP 1 TAB PO SCH (09:25)
[2023-08-28] MEDS: PANTOPRAZOLE 40MG TAB (PROTONIX) PO SCH ×2 (09:25→20:45)
[2023-08-28] MEDS: CALCIUM/VITAMIN D 500 MG TAB PO SCH (09:25)
[2023-08-28] MEDS: FLECAINIDE 50MG TABLET PO SCH ×2 (09:25→20:45)
[2023-08-28] MEDS: NORCO, ANEXSIA 5/325MG TABLET (HYDROcodone/ACETAMINOPHEN) PO PRN ×2 (12:28→23:04)
[2023-08-28 14:00] VITALS: BP 128/61; TEMP 97.8; O2SAT 100
[2023-08-28 20:00] VITALS: BP 125/61; TEMP 98.4; O2SAT 96
[2023-08-28] MEDS: ATORVASTATIN 10 MG TAB PO SCH (20:43)
[2023-08-28] MEDS: SENNA 8.6 MG TAB (SENOKOT) PO SCH (20:44)
[2023-08-28] MEDS: DIGOXIN 0.25 MG TAB PO SCH (20:45)
[2023-08-29] MEDS: ACETAMINOPHEN 500 MG TAB PO SCH ×3 (05:43→21:26)
[2023-08-29] MEDS: DICLOFENAC EPOLAMINE 1.3% PATCH TOP SCH ×2 (05:44→18:58)
[2023-08-29 06:00] VITALS: BP 144/68; TEMP 97; O2SAT 98
[2023-08-29] MEDS: OMEGA-3 1000MG CAPSULE PO SCH (08:24)
[2023-08-29] MEDS: APIXABAN 5 MG TAB (ELIQUIS) PO SCH ×2 (08:24→21:25)
[2023-08-29] MEDS: FLECAINIDE 50MG TABLET PO SCH ×2 (08:24→21:25)
[2023-08-29] MEDS: SUCRALFATE 1 GM TAB PO SCH (08:24)
[2023-08-29] MEDS: PANTOPRAZOLE 40MG TAB (PROTONIX) PO SCH ×2 (08:24→21:23)
[2023-08-29] MEDS: LACTOBACILLUS ACIDOPHILUS CAP (BACID) PO SCH (08:24)
[2023-08-29] MEDS: CALCIUM/VITAMIN D 500 MG TAB PO SCH (08:24)
[2023-08-29] MEDS: MULTIVITAMINS/MINERALS THERAP 1 TAB PO SCH (08:25)
[2023-08-29 14:00] VITALS: BP_SYST 115; TEMP 97.4; O2SAT 96
[2023-08-29] MEDS: NORCO, ANEXSIA 5/325MG TABLET (HYDROcodone/ACETAMINOPHEN) PO PRN (19:18)
[2023-08-29 20:00] VITALS: BP 113/58; TEMP 97.8; O2SAT 96
[2023-08-29] MEDS: SENNA 8.6 MG TAB (SENOKOT) PO SCH (21:23)
[2023-08-29] MEDS: ATORVASTATIN 10 MG TAB PO SCH (21:23)
[2023-08-29] MEDS: DIGOXIN 0.25 MG TAB PO SCH (21:25)
[2023-08-30 06:01] VITALS: BP 148/70; TEMP 98; O2SAT 95
[2023-08-30] MEDS: DICLOFENAC EPOLAMINE 1.3% PATCH TOP SCH ×2 (06:04→17:06)
[2023-08-30] MEDS: ACETAMINOPHEN 500 MG TAB PO SCH ×3 (06:04→22:30)
[2023-08-30 07:03] LABS: BASO % 0.4 % (0.0-1.0); EOS # 0.1 10^3/uL (0.0-0.5); EOS % 1.8 % (0.0-3.0); HEMATOCRIT 31.4 % (42.0-52.0); HEMOGLOBIN 10.5 g/dl (13.5-17.5); LYMPH # 0.6 10^3/uL (1.5-5.0); LYMPH % 12.4 % (24.0-44.0); MEAN CORPUSCULAR HEMOGLOBIN 28.8 pg (27.0-33.0); MEAN CORPUSCULAR HGB CONC 33.4 g/dl (32.0-36.5); MEAN CORPUSCULAR VOLUME 86.3 fl (80.0-96.0); MONO # 0.6 10^3/uL (0.0-0.8); NEUTROPHILS # 3.7 10^3/uL (1.5-8.5); NEUTROPHILS % 74.2 % (36.0-66.0); PLATELET COUNT, AUTOMATED 269 10^3/uL (150-450); RED BLOOD COUNT 3.64 10^6/uL (4.30-6.10)
[2023-08-30 07:22] LABS: BLOOD UREA NITROGEN 20 MG/DL (9-23); CALCIUM LEVEL 8.4 MG/DL (8.3-10.6); CARBON DIOXIDE LEVEL 25 MMOL/L (20-31); CHLORIDE LEVEL 103 MMOL/L (98-107); CREATININE FOR GFR 0.78 MG/DL (0.70-1.30); GLOMERULAR FILTRATION RATE > 60.0 (>35); GLUCOSE, FASTING 91 MG/DL (74-106); SODIUM LEVEL 137 MMOL/L (136-145)
[2023-08-30] MEDS: OMEGA-3 1000MG CAPSULE PO SCH (07:22)
[2023-08-30] MEDS: MULTIVITAMINS/MINERALS THERAP 1 TAB PO SCH (07:22)
[2023-08-30] MEDS: PANTOPRAZOLE 40MG TAB (PROTONIX) PO SCH ×2 (07:22→20:04)
[2023-08-30] MEDS: CALCIUM/VITAMIN D 500 MG TAB PO SCH (07:22)
[2023-08-30] MEDS: LACTOBACILLUS ACIDOPHILUS CAP (BACID) PO SCH (07:22)
[2023-08-30] MEDS: SUCRALFATE 1 GM TAB PO SCH (07:22)
[2023-08-30] MEDS: FLECAINIDE 50MG TABLET PO SCH ×2 (07:22→20:04)
[2023-08-30] MEDS: APIXABAN 5 MG TAB (ELIQUIS) PO SCH ×2 (07:22→20:02)
[2023-08-30] MEDS: MICONAZOLE 2 % POWDER (DESENEX) TOP SCH ×2 (09:00→20:05)
[2023-08-30 14:00] VITALS: BP 122/59; TEMP 98; O2SAT 97
[2023-08-30] MEDS ORDERED: MICR2POW TOP (15:50)
[2023-08-30] MEDS ORDERED: METH-1164 PO (15:50)
[2023-08-30] MEDS: methocarbamoL 500 MG TAB PO PRN (17:07)
[2023-08-30 20:00] VITALS: BP 135/65; TEMP 98.5; O2SAT 96
[2023-08-30] MEDS: ATORVASTATIN 10 MG TAB PO SCH (20:04)
[2023-08-30] MEDS: DIGOXIN 0.25 MG TAB PO SCH (20:04)
[2023-08-30] MEDS: SENNA 8.6 MG TAB (SENOKOT) PO SCH (20:04)
[2023-08-31] MEDS: ACETAMINOPHEN 500 MG TAB PO SCH ×2 (05:34→14:00)
[2023-08-31] MEDS: DICLOFENAC EPOLAMINE 1.3% PATCH TOP SCH (05:38)
[2023-08-31 06:00] VITALS: BP 131/68; TEMP 98; O2SAT 95
[2023-08-31] MEDS: APIXABAN 5 MG TAB (ELIQUIS) PO SCH (07:12)
[2023-08-31] MEDS: SUCRALFATE 1 GM TAB PO SCH (07:12)
[2023-08-31] MEDS: FLECAINIDE 50MG TABLET PO SCH (07:12)
[2023-08-31] MEDS: PANTOPRAZOLE 40MG TAB (PROTONIX) PO SCH (07:12)
[2023-08-31] MEDS: LACTOBACILLUS ACIDOPHILUS CAP (BACID) PO SCH (07:12)
[2023-08-31] MEDS: MULTIVITAMINS/MINERALS THERAP 1 TAB PO SCH (07:12)
[2023-08-31] MEDS: CALCIUM/VITAMIN D 500 MG TAB PO SCH (07:13)
[2023-08-31] MEDS: OMEGA-3 1000MG CAPSULE PO SCH (07:13)
[2023-08-31] MEDS: MICONAZOLE 2 % POWDER (DESENEX) TOP SCH (07:14)
[2023-08-31] MEDS: methocarbamoL 500 MG TAB PO PRN (07:16)
[2023-08-31] MEDS: NORCO, ANEXSIA 5/325MG TABLET (HYDROcodone/ACETAMINOPHEN) PO PRN (12:41)
[2023-08-31 13:50] VITALS: BP 133/61; TEMP 98.4; O2SAT 96
== END 2023-08-31 14:30 | disposition home or self-care (01) | DRG 948 ==
LOC: M PM&R 15:40
PROVIDERS: ADMIT Student in an Organized Health Care Education/Training Program; ATTEND Student in an Organized Health Care Education/Training Program
DX: G89.11 Acute pain due to trauma (principal); I30.0 Acute nonspecific idiopathic pericarditis; I31.39 Other pericardial effusion (noninflammatory); S32.592D Other specified fracture of left pubis, subsequent encounter for fracture with routine healing; R26.2 Difficulty in walking, not elsewhere classified; I10 Essential (primary) hypertension; Z85.46 Personal history of malignant neoplasm of prostate; R29.6 Repeated falls; D64.9 Anemia, unspecified; G47.33 Obstructive sleep apnea (adult) (pediatric); E78.5 Hyperlipidemia, unspecified; K21.9 Gastro-esophageal reflux disease without esophagitis; Z74.09 Other reduced mobility; Z74.1 Need for assistance with personal care; R55 Syncope and collapse; I48.0 Paroxysmal atrial fibrillation; Z79.01 Long term (current) use of anticoagulants; Z79.899 Other long term (current) drug therapy; S32.519D Fracture of superior rim of unspecified pubis, subsequent encounter for fracture with routine healing; I95.1 Orthostatic hypotension

== ENCOUNTER → 2023-09-30 | Outpatient (RCR) | payer MEDICARE, OTHER ==
[~2023-09-30] MED LIST changes: +METH-1164 PO; +MICR2POW TOP
== END ==
LOC: M PT 09-02 14:50
PROVIDERS: ATTEND Orthopaedic Surgery
DX: S72.045A Nondisplaced fracture of base of neck of left femur, initial encounter for closed fracture (principal)

== ENCOUNTER 2023-10-28 10:45 | Outpatient (RCR) | payer MEDICARE, OTHER | END 2023-10-31 | LOC: M PT 10:45 | PROVIDERS: ATTEND Orthopaedic Surgery | DX: S72.045A Nondisplaced fracture of base of neck of left femur, initial encounter for closed fracture (principal) ==

== ENCOUNTER 2023-11-08 22:14 | Emergency (ER) | payer MEDICARE, OTHER ==
[~2023-11-08] VITALS: Ht 177.8 cm; Wt 100.1 kg
[2023-11-09 00:22] VITALS: TEMP 98.7
[2023-11-09 00:50] LABS: BASO % 0.2 % (0.0-1.0); EOS # 0.1 10^3/uL (0.0-0.5); EOS % 1.4 % (0.0-3.0); HEMATOCRIT 38.5 % (42.0-52.0); HEMOGLOBIN 12.6 g/dl (13.5-17.5); LYMPH # 0.8 10^3/uL (1.5-5.0); LYMPH % 13.2 % (24.0-44.0); MEAN CORPUSCULAR HEMOGLOBIN 28.3 pg (27.0-33.0); MEAN CORPUSCULAR HGB CONC 32.7 g/dl (32.0-36.5); MEAN CORPUSCULAR VOLUME 86.3 fl (80.0-96.0); MONO # 0.7 10^3/uL (0.0-0.8); MONO % 12.2 % (2.0-8.0); NEUTROPHILS # 4.2 10^3/uL (1.5-8.5); NEUTROPHILS % 72.7 % (36.0-66.0); PLATELET COUNT, AUTOMATED 229 10^3/uL (150-450); RED BLOOD COUNT 4.46 10^6/uL (4.30-6.10); WHITE BLOOD COUNT 5.8 10^3/uL (4.0-10.0)
[2023-11-09 01:17] LABS: ALBUMIN 3.7 G/DL (3.2-5.2); ALKALINE PHOSPHATASE 78 U/L (46-116); ALT/SGPT 22 U/L (7.0-40); AST/SGOT 21 U/L (<34); BILIRUBIN,DIRECT 0.2 MG/DL (<0.4); BILIRUBIN,TOTAL 0.5 MG/DL (0.3-1.2); BLOOD UREA NITROGEN 21 MG/DL (9-23); CARBON DIOXIDE LEVEL 26 MMOL/L (20-31); CHLORIDE LEVEL 108 MMOL/L (98-107); CREATININE FOR GFR 0.64 MG/DL (0.70-1.30); GLOMERULAR FILTRATION RATE > 60.0 (>35); GLUCOSE, FASTING 115 MG/DL (74-106); POTASSIUM SERUM 3.8 MMOL/L (3.5-5.1); SODIUM LEVEL 139 MMOL/L (136-145)
[2023-11-09] MEDS ORDERED: METOCLOPRAMIDE INJ 10MG/2ML VIAL IV ONE (01:20)
[2023-11-09] MEDS ORDERED: diphenhydrAMINE 50MG/ML VIAL IV ONE (01:20)
[2023-11-09] MEDS ORDERED: NS 1,000 ML IV ONE (01:20)
[2023-11-09] MEDS ORDERED: KETOROLAC 30 MG/ML 1ML VIAL IV ONE (02:00)
[2023-11-09 03:30] VITALS: BP 155/74; O2SAT 97
== END 2023-11-09 04:11 | disposition home or self-care (01) ==
LOC: M ED 22:14
DX: R51.9 Headache, unspecified (principal); I10 Essential (primary) hypertension; Z86.79 Personal history of other diseases of the circulatory system; Z79.01 Long term (current) use of anticoagulants; Z79.810 Long term (current) use of selective estrogen receptor modulators (SERMs); Z79.02 Long term (current) use of antithrombotics/antiplatelets; Z79.899 Other long term (current) drug therapy
CPT/HCPCS: 70450; 80053; 82248; 85025; 87486; 87581; 87633; 87798; 96374; 96375; 99284; J1200; J1885; J2765

== ENCOUNTER → 2023-11-18 | Outpatient (REF) | payer MEDICARE, OTHER ==
[2023-11-18 17:24] LABS: APPEARANCE, URINE HAZY (CLEAR); BACTERIA, URINE AUTO NEGATIVE (NEGATIVE); BILIRUBIN, URINE AUTO NEGATIVE (NEGATIVE); BLOOD, URINE BLOOD 1+ (NEGATIVE); COLOR, URINE YELLOW (YELLOW); GLUCOSE, URINE (UA) AUTO NEGATIVE (NEGATIVE); KETONE, URINE AUTO NEGATIVE (NEGATIVE); LEUKOCYTE ESTERASE, URINE AUTO 3+ (NEGATIVE); NITRITE, URINE AUTO NEGATIVE (NEGATIVE); PROTEIN, URINE AUTO 2+ mg/dL (NEGATIVE); RBC, URINE AUTO 43 /HPF (0-3); SPECIFIC GRAVITY URINE AUTO 1.017 (1.002-1.035); SQUAMOUS EPITHELIAL CELL UR AU 0 /HPF (0-6); WBC, URINE AUTO 165 /HPF (0-3)
== END ==
LOC: M LAB REF 16:29
PROVIDERS: ATTEND Physician Assistant
DX: N39.0 Urinary tract infection, site not specified (principal)

== ENCOUNTER 2023-11-25 10:45 | Outpatient (RCR) | payer MEDICARE, OTHER | END 2023-12-01 | LOC: M PT 10:45 | PROVIDERS: ATTEND Orthopaedic Surgery | DX: S72.045D Nondisplaced fracture of base of neck of left femur, subsequent encounter for closed fracture with routine healing (principal) ==

== ENCOUNTER → 2023-12-09 | Outpatient (REF) | payer MEDICARE, OTHER | LOC: M LAB REF 12:18 | PROVIDERS: ATTEND Internal Medicine | DX: I11.9 Hypertensive heart disease without heart failure (principal) ==

== ENCOUNTER → 2023-12-10 | Outpatient (CLI) | payer MEDICARE, OTHER | LOC: M PLAIMG 07:00 | PROVIDERS: ATTEND Internal Medicine | DX: R51.9 Headache, unspecified (principal); Z79.01 Long term (current) use of anticoagulants ==

== ENCOUNTER → 2024-02-09 | Outpatient (REF) | payer MEDICARE, OTHER ==
[2024-02-09 16:00] LABS: APPEARANCE, URINE MANUAL HAZY (CLEAR); COLOR, URINE MANUAL YELLOW (YELLOW)
[2024-02-09 16:01] LABS: BILIRUBIN, URINE MANUAL NEGATIVE (NEGATIVE); GLUCOSE, URINE (UA) MANUAL NEGATIVE (NEGATIVE); KETONE, URINE MANUAL NEGATIVE (NEGATIVE); PROTEIN, URINE MANUAL 3+ mg/dL (NEGATIVE); UROBILINOGEN, URINE MANUAL NORMAL (NORMAL)
[2024-02-09 16:02] LABS: BLOOD URINE MANUAL POSITIVE (NEGATIVE); LEUKOCYTE ESTERASE, URINE MAN POSITIVE (NEGATIVE); NITRITE, URINE MANUAL NEGATIVE (NEGATIVE)
[2024-02-09 16:04] LABS: SQUAMOUS EPITHELIAL CELL URINE NONE SEEN /hpf (SMALL AMT); WBC, URINE 20-30 /hpf (0-3)
[2024-02-09 16:05] LABS: BACTERIA, URINE MOD AMOUNT; HYALINE CAST, URINE NONE SEEN /lpf (0-1)
== END ==
LOC: M SMT 15:25
PROVIDERS: ATTEND Physician Assistant
DX: R30.0 Dysuria (principal)

== ENCOUNTER → 2024-02-22 | Outpatient (CLI) | payer MEDICARE, OTHER | LOC: M RAD 16:40 | PROVIDERS: ATTEND Internal Medicine | DX: R05.3 Chronic cough (principal) ==

== ENCOUNTER → 2024-05-02 | Outpatient (CLI) | payer MEDICARE, OTHER ==
[~2024-05-02] MED LIST changes: +BARIUM SULFATE 700 MG TABLET (E-Z-DISK) As Ordered ONE; +E-Z-PAQUE 96% w/w SUSP 176GM BTL As Ordered ONE; +VARIBAR NECTAR 40% w/v 240ML SUSP BTL As Ordered ONE; +VARIBAR PUDDING 40% w/v 230ML TUBE As Ordered ONE
== END ==
LOC: M RAD 11:06
PROVIDERS: ATTEND Internal Medicine
DX: R05.9 Cough, unspecified (principal); R13.10 Dysphagia, unspecified

== ENCOUNTER 2024-07-12 08:49 | Emergency (ER) | payer MEDICARE, OTHER ==
[~2024-07-12] VITALS: Ht 177.8 cm; Wt 100.0 kg
[~2024-07-12 08:49] MED LIST changes: -BARIUM SULFATE 700 MG TABLET (E-Z-DISK) As Ordered ONE; -E-Z-PAQUE 96% w/w SUSP 176GM BTL As Ordered ONE; -VARIBAR NECTAR 40% w/v 240ML SUSP BTL As Ordered ONE; -VARIBAR PUDDING 40% w/v 230ML TUBE As Ordered ONE
[2024-07-12 09:32] LABS: BASO % 0.2 % (0.0-1.0); EOS % 0.8 % (0.0-3.0); HEMATOCRIT 44.1 % (42.0-52.0); LYMPH # 0.6 10^3/uL (1.5-5.0); MEAN CORPUSCULAR HEMOGLOBIN 29.6 pg (27.0-33.0); MEAN CORPUSCULAR VOLUME 87.2 fl (80.0-96.0); MONO # 0.5 10^3/uL (0.0-0.8); NEUTROPHILS # 4.1 10^3/uL (1.5-8.5); NEUTROPHILS % 77.6 % (36.0-66.0); PLATELET COUNT, AUTOMATED 226 10^3/uL (150-450); RED BLOOD COUNT 5.06 10^6/uL (4.30-6.10); WHITE BLOOD COUNT 5.3 10^3/uL (4.0-10.0)
[2024-07-12 09:48] LABS: INR 1.25; PROTHROMBIN TIME 15.3 SECONDS (12.5-14.5)
[2024-07-12 10:04] LABS: CK-MB VALUE MASS 1.2 NG/ML (<3.6); LIPASE 33 U/L (12-53)
[2024-07-12 10:06] LABS: ALBUMIN 3.9 G/DL (3.2-5.2); ALKALINE PHOSPHATASE 53 U/L (46-116); ALT/SGPT 26 U/L (7.0-40); AST/SGOT 23 U/L (<34); BILIRUBIN,DIRECT 0.4 MG/DL (<0.4); BILIRUBIN,TOTAL 1.2 MG/DL (0.3-1.2); CPK CREATINE PHOSPHOKINASE 59 U/L (46-171); MB/CK RELATIVE INDEX 2.03 (< OR =4); TOTAL PROTEIN 6.7 G/DL (5.7-8.2)
[2024-07-12] MEDS: MORPHINE 2 MG/ML 1ML VIAL IV PRN (10:17)
[2024-07-12 11:08] LABS: CK-MB VALUE MASS < 1.0 NG/ML (<3.6)
[2024-07-12 11:10] LABS: CPK CREATINE PHOSPHOKINASE 43 U/L (46-171); MB/CK RELATIVE INDEX 2.32 (< OR =4)
[2024-07-12 11:51] LABS: BLOOD UREA NITROGEN 14 MG/DL (9-23); CALCIUM LEVEL 9.6 MG/DL (8.3-10.6); CARBON DIOXIDE LEVEL 26 MMOL/L (20-31); CHLORIDE LEVEL 106 MMOL/L (98-107); CREATININE FOR GFR 0.67 MG/DL (0.70-1.30); GLOMERULAR FILTRATION RATE > 60.0 (>35); GLUCOSE, FASTING 109 MG/DL (74-106); SODIUM LEVEL 139 MMOL/L (136-145)
[2024-07-12] MEDS ORDERED: ISOVUE-370 76% 100ML VIAL As Ordered ONE (12:06)
[2024-07-12] MEDS ORDERED: L.RH1CAP2 PO (13:30)
[2024-07-12] MEDS ORDERED: MOVE1TAB PO (13:30)
[2024-07-12] MEDS ORDERED: SYST1SOL OU (13:30)
[2024-07-12] MEDS ORDERED: ACET-897 PO (13:30)
[2024-07-12] MEDS ORDERED: MULT-6 PO (13:30)
[2024-07-12] MEDS ORDERED: SPIR-10 PO (13:30)
[2024-07-12] MEDS ORDERED: C 50TAB PO (13:30)
[2024-07-12] MEDS ORDERED: HOME MED LIST COMPLETE! XX SCH (13:35)
[2024-07-12] MEDS: ACETAMINOPHEN 500 MG TAB PO ONE (14:05)
[2024-07-12] MEDS ORDERED: AMOX500T PO (14:25)
[2024-07-12] MEDS ORDERED: HYDR-3713 PO (14:28)
[2024-07-12 14:30] VITALS: BP 151/81; TEMP 97.8; O2SAT 97
== END 2024-07-12 14:57 | disposition home or self-care (01) ==
LOC: M ED 08:49
DX: J18.9 Pneumonia, unspecified organism (principal); I44.0 Atrioventricular block, first degree; I45.10 Unspecified right bundle-branch block; I44.4 Left anterior fascicular block; I10 Essential (primary) hypertension; E78.5 Hyperlipidemia, unspecified; G47.33 Obstructive sleep apnea (adult) (pediatric); Z85.46 Personal history of malignant neoplasm of prostate; Z86.79 Personal history of other diseases of the circulatory system; Z79.2 Long term (current) use of antibiotics; Z79.01 Long term (current) use of anticoagulants; Z79.899 Other long term (current) drug therapy
CPT/HCPCS: 71045; 71275; 80048; 80076; 82550; 82553; 83690; 84484; 85025; 85610; 93005; 93041; 94760; 96374; 99285; Q9967

== ENCOUNTER → 2024-08-11 | Outpatient (REF) | payer MEDICARE, OTHER ==
[~2024-08-11] MED LIST changes: +ACET-897 PO; +AMOX500T PO; +C 50TAB PO; +L.RH1CAP2 PO; +MOVE1TAB PO; +MULT-6 PO; -SENN-111 PO; +SENN-165 PO; +SYST1SOL OU
== END ==
LOC: M LAB REF 12:52
PROVIDERS: ATTEND Internal Medicine
DX: I48.0 Paroxysmal atrial fibrillation (principal)

== ENCOUNTER → 2025-02-05 | Outpatient (REF) | payer MEDICARE, OTHER ==
[2025-02-05 15:54] LABS: APPEARANCE, URINE CLOUDY (CLEAR); BACTERIA, URINE AUTO 1+ (NEGATIVE); BILIRUBIN, URINE AUTO NEGATIVE (NEGATIVE); BLOOD, URINE BLOOD 1+ (NEGATIVE); COLOR, URINE AMBER (YELLOW); GLUCOSE, URINE (UA) AUTO NEGATIVE (NEGATIVE); KETONE, URINE AUTO NEGATIVE (NEGATIVE); LEUKOCYTE ESTERASE, URINE AUTO 2+ (NEGATIVE); NITRITE, URINE AUTO NEGATIVE (NEGATIVE); PROTEIN, URINE AUTO 1+ mg/dL (NEGATIVE); RBC, URINE AUTO 6 /HPF (0-3); SPECIFIC GRAVITY URINE AUTO 1.023 (1.002-1.035); SQUAMOUS EPITHELIAL CELL UR AU 0 /HPF (0-6); UROBILINOGEN, URINE AUTO 0.2 mg/dL (0.0-2.0); WBC, URINE AUTO TNTC /HPF (0-3)
== END ==
LOC: M LAB REF 14:47
PROVIDERS: ATTEND Physician Assistant Medical
DX: N39.0 Urinary tract infection, site not specified (principal)

== ENCOUNTER → 2025-02-15 | Outpatient (REF) | payer MEDICARE, OTHER ==
[2025-02-15 18:54] LABS: APPEARANCE, URINE CLEAR (CLEAR); BACTERIA, URINE AUTO NEGATIVE (NEGATIVE); BILIRUBIN, URINE AUTO NEGATIVE (NEGATIVE); BLOOD, URINE BLOOD NEGATIVE (NEGATIVE); COLOR, URINE YELLOW (YELLOW); GLUCOSE, URINE (UA) AUTO NEGATIVE (NEGATIVE); KETONE, URINE AUTO NEGATIVE (NEGATIVE); LEUKOCYTE ESTERASE, URINE AUTO NEGATIVE (NEGATIVE); NITRITE, URINE AUTO NEGATIVE (NEGATIVE); PROTEIN, URINE AUTO NEGATIVE (NEGATIVE); RBC, URINE AUTO 0 /HPF (0-3); SPECIFIC GRAVITY URINE AUTO 1.013 (1.002-1.035); SQUAMOUS EPITHELIAL CELL UR AU 0 /HPF (0-6); UROBILINOGEN, URINE AUTO 0.2 mg/dL (0.0-2.0); WBC, URINE AUTO 0 /HPF (0-3)
== END ==
LOC: M SMT 18:05
PROVIDERS: ATTEND Urology
DX: N39.0 Urinary tract infection, site not specified (principal)

== ENCOUNTER → 2025-05-28 | Outpatient (CLI) | payer MEDICARE, OTHER ==
[~2025-05-28] MED LIST changes: +AMOX500C PO; +DOCU8.6T PO; +MIRA33506 PO; +MORP-138 PO; -MORP15TASA PO; +OLME20TA50 PO; +OXYC-517 PO
== END ==
LOC: M SOG 07:05
PROVIDERS: ATTEND Physician Assistant
DX: S72.112D Displaced fracture of greater trochanter of left femur, subsequent encounter for closed fracture with routine healing (principal); S32.512D Fracture of superior rim of left pubis, subsequent encounter for fracture with routine healing; S32.592D Other specified fracture of left pubis, subsequent encounter for fracture with routine healing; M16.12 Unilateral primary osteoarthritis, left hip

== ENCOUNTER → 2025-05-31 | Outpatient (RCR) | payer MEDICARE, OTHER | LOC: M PT 05-03 13:14 | PROVIDERS: ATTEND Physical Medicine & Rehabilitation | DX: S72.112A Displaced fracture of greater trochanter of left femur, initial encounter for closed fracture (principal) ==

== ENCOUNTER 2025-06-07 10:42 | Outpatient (RCR) | payer MEDICARE, OTHER | END 2025-07-01 | LOC: M PT 10:42 | PROVIDERS: ATTEND Physical Medicine & Rehabilitation | DX: S72.112D Displaced fracture of greater trochanter of left femur, subsequent encounter for closed fracture with routine healing (principal) ==

== ENCOUNTER → 2025-08-14 | Outpatient (REF) | payer MEDICARE, OTHER | LOC: M LAB REF 13:37 | PROVIDERS: ATTEND Internal Medicine | DX: I48.0 Paroxysmal atrial fibrillation (principal) ==